=== PATIENT | male | born 1985 | race Caucasian/White ===

== ENCOUNTER 2020-06-14 08:20 | Outpatient (REF) | payer OTHER, SELFPAY ==
[2020-06-14 08:42] LABS: COVID-19 Test Negative (Negative)
== END 2020-06-14 08:21 | disposition home or self-care (01) ==
LOC: HO.LAB 08:20
PROVIDERS: Visit Provider Internal Medicine
DX: Z20.822 Contact with and (suspected) exposure to COVID-19 (principal)
CPT/HCPCS: 36415; 87635; C9803

== ENCOUNTER 2020-06-21 15:00 | Outpatient (REF) | payer OTHER, SELFPAY | END 2020-06-21 15:01 | disposition home or self-care (01) | LOC: HO.LAB 15:00 | PROVIDERS: Visit Provider Internal Medicine | DX: Z20.822 Contact with and (suspected) exposure to COVID-19 (principal) | CPT/HCPCS: C9803; U0003; U0005 ==

== ENCOUNTER 2020-07-02 09:41 | Outpatient (REF) | payer OTHER, SELFPAY ==
[2020-07-02 10:00] LABS: COVID-19 Test Negative (Negative)
== END 2020-07-02 09:42 | disposition home or self-care (01) ==
LOC: HO.LAB 09:41
PROVIDERS: Visit Provider Internal Medicine
DX: Z20.822 Contact with and (suspected) exposure to COVID-19 (principal)
CPT/HCPCS: 36415; 87635; C9803

== ENCOUNTER 2020-10-01 10:43 | Outpatient (REF) | payer OTHER, SELFPAY ==
[2020-10-01 11:41] LABS: MANUAL DIFF FLAG NO
[2020-10-01 11:51] LABS: Basophils Percent Auto 0.3 % (0-2); Eosinophils Absolute Auto 0.3 X10*3/uL (0.0-0.4); Eosinophils Percent Auto 4.3 % (0-4); Hematocrit 42.5 % (42-52); Hemoglobin 13.8 g/dl (14.0-18.0); Imm Gran Abs Auto 0.03 X10*3/uL (0.00-0.03); Imm Gran Pct Auto 0.4 % (0.0-0.4); Lymphocytes Absolute Auto 2.1 X10*3/uL (1.2-4.9); Lymphocytes Percent Auto 29.6 % (20-40); Mean Corpuscular HGB Conc 32.5 g/dl (31.0-36.0); Mean Corpuscular Hemoglobin 27.5 pg (27.0-33.0); Mean Corpuscular Volume 84.7 fL (80-98); Mean Platelet Volume 8.8 fL (9.4-12.4); Monocytes Absolute Auto 0.6 X10*3/uL (0.1-1.2); Monocytes Percent Auto 7.8 % (2-11); Neutrophils Absolute Auto 4.1 X10*3/uL (2.0-8.3); Neutrophils Percent Auto 57.6 % (45-73); Platelet Count 225 X10*3/uL (160-400); Red Blood Count 5.02 X10*6/uL (4.60-5.80); Red Cell Distribution Width 14.2 % (11.0-16.0); White Blood Count 7.1 X10*3/uL (4.8-10.8)
[2020-10-01 12:20] LABS: Amylase 39 U/L (28-100); Anion Gap 11 (12-20); Blood Urea Nitrogen 14 mg/dL (9-16); Calcium 9.2 mg/dL (8.4-10.2); Carbon Dioxide 30 mmol/L (22-29); Chloride 105 mmol/L (96-108); Estimated Glomerular Filt Rate > 60; Glucose Random 104 mg/dL (60-115); Lipase 17 U/L (8-78); Potassium 4.3 mmol/L (3.3-5.1); Sodium 142 mmol/L (135-145)
[2020-10-01 12:40] LABS: Vitamin D 25-OH Total 19.2 ng/mL (>30)
[2020-10-01 13:16] LABS: Vitamin B12 511 pg/mL (200-900)
[2020-10-01 14:58] LABS: Leukocytes Stool Qualitative NEGATIVE (NEGATIVE)
== END 2020-10-01 10:44 | disposition home or self-care (01) ==
LOC: HO.LAB 10:43
PROVIDERS: PCP Internal Medicine; Visit Provider Internal Medicine
DX: K90.9 Intestinal malabsorption, unspecified (principal); R19.7 Diarrhea, unspecified; E53.8 Deficiency of other specified B group vitamins; E55.9 Vitamin D deficiency, unspecified; Z98.84 Bariatric surgery status
CPT/HCPCS: 36415; 80048; 82150; 82306; 82607; 82705; 82746; 83690; 85025; 87045; 87046; 89055

== ENCOUNTER 2021-01-03 13:31 | Outpatient (REF) | payer OTHER, SELFPAY ==
[2021-01-03 17:04] LABS: Influenza A PCR NEGATIVE (Negative); Influenza B PCR NEGATIVE (Negative); Resp Syncy Virus RNA Qual PCR NEGATIVE (Negative); SARS COV2 PCR INHOUSE NEGATIVE (Negative)
== END 2021-01-03 13:32 | disposition home or self-care (01) ==
LOC: HO.LAB 13:31
PROVIDERS: Visit Provider Internal Medicine
DX: Z20.822 Contact with and (suspected) exposure to COVID-19 (principal); R43.9 Unspecified disturbances of smell and taste
CPT/HCPCS: 0241U; 36415

== ENCOUNTER 2021-02-25 08:22 | Outpatient (REF) | payer OTHER, SELFPAY ==
[2021-02-25 08:55] LABS: COVID-19 Test Negative (Negative)
== END 2021-02-25 08:23 | disposition home or self-care (01) ==
LOC: HO.LAB 08:22
PROVIDERS: PCP Internal Medicine; Visit Provider Internal Medicine
DX: Z20.822 Contact with and (suspected) exposure to COVID-19 (principal)
CPT/HCPCS: 36415; 87635; C9803

== ENCOUNTER 2021-03-25 09:46 | Outpatient (REF) | payer OTHER, SELFPAY ==
[2021-03-25 10:38] LABS: Binax Internal Control QC Valid; Binax Now Covid-19 Ag Negative (Negative)
== END 2021-03-25 09:47 | disposition home or self-care (01) ==
LOC: HO.LAB 09:46
PROVIDERS: Visit Provider Internal Medicine
DX: Z20.822 Contact with and (suspected) exposure to COVID-19 (principal)
CPT/HCPCS: C9803

== ENCOUNTER 2021-03-31 09:56 | Outpatient (REF) | payer OTHER, SELFPAY ==
[2021-03-31 10:34] LABS: Binax Internal Control QC Valid; Binax Now Covid-19 Ag Positive (Negative)
== END 2021-03-31 09:57 | disposition home or self-care (01) ==
LOC: HO.LAB 09:56
PROVIDERS: Visit Provider Internal Medicine
DX: Z20.822 Contact with and (suspected) exposure to COVID-19 (principal)
CPT/HCPCS: C9803

== ENCOUNTER 2022-03-18 13:25 | Inpatient (IN) | payer OTHER, SELFPAY ==
[2022-03-18] VITALS (7 sets, daily range): BP systolic 105–149; BP diastolic 54–81; PULSE 54–66; RESP 16–18; TEMP 35.6–36.8; O2SAT 95–100; BMI 40.6
--- NOTE | ~2022-03-18 | CT_ITS ---
EXAMINATION: CT ABDOMEN AND PELVIS WITH CONTRAST CLINICAL INFORMATION: Right upper quadrant pain COMPARISON: CT abdomen and pelvis 08/25/2018 TECHNIQUE: Multidetector volumetric images were obtained from the superior aspect of the liver through the pubic symphysis following administration 85 mL of Omnipaque 350 intravenous contrast. Sagittal and coronal reformatted images were obtained on the technologist's workstation. Oral contrast: No This CT examination was performed using dose optimization techniques as appropriate, variously including the following: *Automated exposure control *Adjustment of mA and/or kV according to patient size (this includes techniques or standardized protocols for targeted exams where dose is matched to indication/reason for exam; i.e. extremities or head) *Use of iterative reconstruction technique DLP: 1019 mGy-cm FINDINGS: LUNG BASES: Minimal dependent basilar and lingular segmental atelectasis. LIVER, GALLBLADDER, AND BILIARY TREE: The liver is normal in size, shape, and attenuation. No focal hepatic lesion or biliary ductal dilatation is present. Gallbladder is markedly dilated/hydropic. There appears to be small amount of layering sludge in the gallbladder. No calcified gallstones. Trace pericholecystic fluid versus submucosal gallbladder wall edema. Minimal pericholecystic hazy fat stranding extending into the samantha hepatus. Constellation of findings is highly concerning for acute cholecystitis. PANCREAS: Unremarkable. SPLEEN: Unremarkable. ADRENAL GLANDS: Unremarkable. KIDNEYS AND URETERS: Nephrograms are symmetric. There is no hydronephrosis. There is a small 3 mm nonobstructing left lower pole renal calculus. No renal lesions. No perinephric fluid collections. BLADDER: Unremarkable. GASTROINTESTINAL TRACT: Status post partial gastrectomy with gastrojejunostomy. No dilated bowel loops. No bowel wall thickening. Normal appendix. No free air or ascites. ABDOMINAL WALL: No significant hernia is appreciated. LYMPH NODES: No lymphadenopathy. VASCULAR: Unremarkable. PELVIC VISCERA: Unremarkable. OSSEOUS STRUCTURES: No acute fracture or suspicious osseous lesion. Mild multilevel degenerative disc disease in the thoracic spine. CT/CT abdomen pelvis w IV con IMPRESSION: 1. Markedly dilated/hydropic gallbladder with small amount of layering sludge. Minimal pericholecystic fluid versus submucosal gallbladder wall edema. Constellation of findings is highly concerning for acute cholecystitis. 2. No biliary ductal dilatation. 3. Status post partial gastrectomy with gastrojejunostomy. No evidence of bowel obstruction. 4. 3 mm nonobstructing left lower pole renal calculus.
--- NOTE | ~2022-03-18 | US_ITS ---
EXAMINATION: US ABDOMEN LIMITED CLINICAL INFORMATION: Right upper quadrant pain. COMPARISON: CT abdomen and pelvis 08/25/2018, abdominal ultrasound 04/01/2015 TECHNIQUE: Targeted scanning of the gallbladder and common bile duct was performed. FINDINGS: PANCREAS: Not imaged. LIVER: Not fully imaged. GALLBLADDER: Gallbladder is significantly enlarged/dilated measuring approximately 15 cm in length and contains numerous echogenic shadowing layering gallstones. Gallbladder wall is borderline thickened measuring 0.3 cm. The patient was tender while scanning over the gallbladder per technologist report. No pericholecystic fluid. COMMON BILE DUCT: Minimally dilated measuring 0.6 cm in diameter. RIGHT KIDNEY: Not imaged FREE FLUID: None. US/US abdomen limited IMPRESSION: 1. Distended/hydropic gallbladder containing numerous gallstones. Borderline gallbladder wall thickening and pain while scanning over the gallbladder. Findings are suspicious for acute cholecystitis. 2. Minimally dilated common bile duct measuring 0.6 cm in diameter.
--- NOTE | 2022-03-18 13:34 | ED.ABDPAIN ---
HPI - Abdominal Pain General Chief Complaint: General Medical <STAS Chavarria - Last Filed: 03/18/22 13:56> Stated Complaint: ABDOMINAL PAIN <STAS Chavarria - Last Filed: 03/18/22 13:56> Time Seen by Provider: 03/18/22 15:54 <STAS Chavarria - Last Filed: 03/18/22 13:56> Source: patient <STAS Berger - Last Filed: 03/18/22 17:56> Mode of arrival: ambulatory <STAS Berger - Last Filed: 03/18/22 17:56> Limitations: no limitations <STAS Berger - Last Filed: 03/18/22 17:56> Related Data Home Medications: Home Medications Medication Instructions Recorded Confirmed blood sugar diagnostic #10 ea 05/03/20 03/13/22 multivitamin 1 tab PO DAILY 10/01/20 03/18/22 Previous Rx's Medication Instructions Recorded cholecalciferol (vitamin D3) 50 50 mcg PO DAILY 90 days #90 caps 11/11/21 mcg (2,000 unit) capsule ibuprofen 800 mg tablet 800 mg PO Q8H PRN pain 30 days #90 02/17/22 tabs <STAS Chavarria - Last Filed: 03/18/22 13:56> Allergies/Adverse Reactions: Allergies Allergy/AdvReac Type Severity Reaction Status Date / Time No Known Allergies Allergy Verified 03/13/22 10:52 <STAS Chavarria - Last Filed: 03/18/22 13:56> [facility] Past Medical History Medical History: Medical History Diarrhea due to malabsorption Frequent loose stools Obesity (BMI 30-39.9) Vitamin D deficiency <STAS Chavarria - Last Filed: 03/18/22 13:56> Surgical History: Surgical History History of gastric bypass (~04/05/20) Status post laparoscopic sleeve gastrectomy <STAS Chavarria - Last Filed: 03/18/22 13:56> Family History Family History: Family History Mother Arthritis Father Parkinsons <STAS Chavarria - Last Filed: 03/18/22 13:56> Social History Social History: Social History Housing: Apartment Alcohol intake: unknown Patient Tobacco Use Status: Never used Tobacco e-Cigarette/Vaping Use: Never Used Second Hand Smoke Exposure: Yes Advance Directives: No Advance Directives Information Provided: No service: No Current occupational status: unemployed Cognitive needs: No Hearing needs: No Vision needs: Yes <STAS Chavarria - Last Filed: 03/18/22 13:56> Physical Exam ED Vital Signs: Vital Signs - 24 hr 03/18/22 13:54 03/18/22 16:00 03/18/22 17:49 Temperature 96.0 F L 97.9 F Pulse Rate 54 61 64 Respiratory Rate 18 16 18 Blood Pressure 142/81 H 130/65 143/74 H Pulse Oximetry 100 96 98 Oxygen Delivery Method Room Air Room Air BMI result Body Mass Index 40.6 <STAS Chavarria - Last Filed: 03/18/22 13:56> Vital Signs - 24 hr 03/18/22 13:54 03/18/22 16:00 03/18/22 17:49 Temperature 96.0 F L 97.9 F Pulse Rate 54 61 64 Respiratory Rate 18 16 18 Blood Pressure 142/81 H 130/65 143/74 H Pulse Oximetry 100 96 98 Oxygen Delivery Method Room Air Room Air BMI result Body Mass Index 40.6 <STAS Berger - Last Filed: 03/18/22 17:56> Course Course Course Narrative: RME - 36 yo male presents to the via EMS for evaluation of upper abdominal pain that radiates to the right and to his back that started at 2am. + nausea and diarrhea but no vomiting. Very tender RUQ on exam. Labs and U/S ordered. <STAS Chavarria - Last Filed: 03/18/22 13:56> Reevaluation(s) Reevaluation #1: CBC with slight leukocytosis. <STAS Berger - Last Filed: 03/18/22 17:56> Medical Decision Making Lab Data Result Diagrams: 03/18/22 15:01 03/18/22 15:01 <STAS Chavarria - Last Filed: 03/18/22 13:56> Labs: Lab Results 03/18/22 03/18/22 03/18/22 Range/Units 15:01 15:01 15:07 WBC 12.8 H (4.8-10.8) X10*3/uL RBC 5.24 (4.60-5.80) X10*6/uL Hgb 14.5 (14.0-18.0) g/dl Hct 43.7 (42.0-52.0) % MCV 83.4 (80.0-98.0) fL MCH 27.7 (27.0-33.0) pg MCHC 33.2 (31.0-36.0) g/dl RDW 13.3 (11.0-16.0) % Plt Count 240 (160-400) X10*3/uL MPV 8.9 L (9.4-12.4) fL Immature Gran % (Auto) 0.5 H (0.0-0.4) % Neut % (Auto) 85.3 H (45-73) % Lymph % (Auto) 9.4 L (20-40) % [place] % (Auto) 3.9 (2-11) % Eos % (Auto) 0.5 (0-4) % Baso % (Auto) 0.4 (0-2) % Lymph # (Auto) 1.2 (1.2-4.9) X10*3/uL [place] # (Auto) 0.5 (0.1-1.2) X10*3/uL Eos # (Auto) 0.1 (0.0-0.4) X10*3/uL Baso # (Auto) 0.1 (0.0-0.2) X10*3/uL Abs Immat Gran (auto) 0.06 H (0.00-0.03) X10*3/uL Absolute Neuts (auto) 10.9 H (2.0-8.3) x10*3/uL Absolute Nucleated RBC 0.000 (0.0-0.012) X10*3/uL Nucleated RBC % (auto) 0.0 (0.0-0.2) /100WBC Sodium 141 (135-145) mmol/L Potassium 4.0 (3.3-5.1) mmol/L Chloride 106 (96-108) mmol/L Carbon Dioxide 28 (22-29) mmol/L Anion Gap 11 L (12-20) BUN 14 (9-16) mg/dL Creatinine 0.70 (0.5-1.4) mg/dL Estim Creat Clear Calc 181.0 Estimated GFR > 60 Random Glucose 181 H (60-115) mg/dL Lactic Acid (0.5-2.0) mmol/L Calcium 9.1 (8.4-10.2) mg/dL Magnesium 2.3 (1.6-2.6) mg/dL Total Bilirubin 0.4 (0.0-1.0) mg/dL Direct Bilirubin < 0.2 (0.0-0.5) mg/dL AST 16 (5-37) U/L ALT 24 (0-40) U/L Alkaline Phosphatase 89 (39-117) U/L Total Protein 7.2 (6.5-8.0) g/dL Albumin 4.5 (3.5-5.0) g/dL Lipase 27 (8-78) U/L Urine Color Yellow Urine Appearance Clear Urine pH 6.0 (5.0-9.0) Ur Specific [place] >= 1.030 H (1.005-1.025) Urine Protein Negative (Neg-Trace) mg/dL Urine Glucose (UA) Negative (Negative) mg/dL Urine Ketones Negative (Negative) mg/dL Urine Blood Negative (Negative) Urine Nitrite Negative (Negative) Ur Leukocyte Esterase Negative (Negative) COVID-19 (REMY) (Negative) COVID-19 Clin Com 03/18/22 03/18/22 Range/Units 16:14 16:14 WBC (4.8-10.8) X10*3/uL RBC (4.60-5.80) X10*6/uL Hgb (14.0-18.0) g/dl Hct (42.0-52.0) % MCV (80.0-98.0) fL MCH (27.0-33.0) pg MCHC (31.0-36.0) g/dl RDW (11.0-16.0) % Plt Count (160-400) X10*3/uL MPV (9.4-12.4) fL Immature Gran % (Auto) (0.0-0.4) % Neut % (Auto) (45-73) % Lymph % (Auto) (20-40) % [place] % (Auto) (2-11) % Eos % (Auto) (0-4) % Baso % (Auto) (0-2) % Lymph # (Auto) (1.2-4.9) X10*3/uL [place] # (Auto) (0.1-1.2) X10*3/uL Eos # (Auto) (0.0-0.4) X10*3/uL Baso # (Auto) (0.0-0.2) X10*3/uL Abs Immat Gran (auto) (0.00-0.03) X10*3/uL Absolute Neuts (auto) (2.0-8.3) x10*3/uL Absolute Nucleated RBC (0.0-0.012) X10*3/uL Nucleated RBC % (auto) (0.0-0.2) /100WBC Sodium (135-145) mmol/L Potassium (3.3-5.1) mmol/L Chloride (96-108) mmol/L Carbon Dioxide (22-29) mmol/L Anion Gap (12-20) BUN (9-16) mg/dL Creatinine (0.5-1.4) mg/dL Estim Creat Clear Calc Estimated GFR Random Glucose (60-115) mg/dL Lactic Acid 1.2 (0.5-2.0) mmol/L Calcium (8.4-10.2) mg/dL Magnesium (1.6-2.6) mg/dL Total Bilirubin (0.0-1.0) mg/dL Direct Bilirubin (0.0-0.5) mg/dL AST (5-37) U/L ALT (0-40) U/L Alkaline Phosphatase (39-117) U/L Total Protein (6.5-8.0) g/dL Albumin (3.5-5.0) g/dL Lipase (8-78) U/L Urine Color Urine Appearance Urine pH (5.0-9.0) Ur Specific [place] (1.005-1.025) Urine Protein (Neg-Trace) mg/dL Urine Glucose (UA) (Negative) mg/dL Urine Ketones (Negative) mg/dL Urine Blood (Negative) Urine Nitrite (Negative) Ur Leukocyte Esterase (Negative) COVID-19 (REMY) Negative (Negative) COVID-19 Clin Com See Note <STAS Chavarria - Last Filed: 03/18/22 13:56> Lab Results 03/18/22 03/18/22 03/18/22 Range/Units 15:01 15:01 15:07 WBC 12.8 H (4.8-10.8) X10*3/uL RBC 5.24 (4.60-5.80) X10*6/uL Hgb 14.5 (14.0-18.0) g/dl Hct 43.7 (42.0-52.0) % MCV 83.4 (80.0-98.0) fL MCH 27.7 (27.0-33.0) pg MCHC 33.2 (31.0-36.0) g/dl RDW 13.3 (11.0-16.0) % Plt Count 240 (160-400) X10*3/uL MPV 8.9 L (9.4-12.4) fL Immature Gran % (Auto) 0.5 H (0.0-0.4) % Neut % (Auto) 85.3 H (45-73) % Lymph % (Auto) 9.4 L (20-40) % [place] % (Auto) 3.9 (2-11) % Eos % (Auto) 0.5 (0-4) % Baso % (Auto) 0.4 (0-2) % Lymph # (Auto) 1.2 (1.2-4.9) X10*3/uL [place] # (Auto) 0.5 (0.1-1.2) X10*3/uL Eos # (Auto) 0.1 (0.0-0.4) X10*3/uL Baso # (Auto) 0.1 (0.0-0.2) X10*3/uL Abs Immat Gran (auto) 0.06 H (0.00-0.03) X10*3/uL Absolute Neuts (auto) 10.9 H (2.0-8.3) x10*3/uL Absolute Nucleated RBC 0.000 (0.0-0.012) X10*3/uL Nucleated RBC % (auto) 0.0 (0.0-0.2) /100WBC Sodium 141 (135-145) mmol/L Potassium 4.0 (3.3-5.1) mmol/L Chloride 106 (96-108) mmol/L Carbon Dioxide 28 (22-29) mmol/L Anion Gap 11 L (12-20) BUN 14 (9-16) mg/dL Creatinine 0.70 (0.5-1.4) mg/dL Estim Creat Clear Calc 181.0 Estimated GFR > 60 Random Glucose 181 H (60-115) mg/dL Lactic Acid (0.5-2.0) mmol/L Calcium 9.1 (8.4-10.2) mg/dL Magnesium 2.3 (1.6-2.6) mg/dL Total Bilirubin 0.4 (0.0-1.0) mg/dL Direct Bilirubin < 0.2 (0.0-0.5) mg/dL AST 16 (5-37) U/L ALT 24 (0-40) U/L Alkaline Phosphatase 89 (39-117) U/L Total Protein 7.2 (6.5-8.0) g/dL Albumin 4.5 (3.5-5.0) g/dL Lipase 27 (8-78) U/L Urine Color Yellow Urine Appearance Clear Urine pH 6.0 (5.0-9.0) Ur Specific [place] >= 1.030 H (1.005-1.025) Urine Protein Negative (Neg-Trace) mg/dL Urine Glucose (UA) Negative (Negative) mg/dL Urine Ketones Negative (Negative) mg/dL Urine Blood Negative (Negative) Urine Nitrite Negative (Negative) Ur Leukocyte Esterase Negative (Negative) COVID-19 (REMY) (Negative) COVID-19 Clin Com 03/18/22 03/18/22 Range/Units 16:14 16:14 WBC (4.8-10.8) X10*3/uL RBC (4.60-5.80) X10*6/uL Hgb (14.0-18.0) g/dl Hct (42.0-52.0) % MCV (80.0-98.0) fL MCH (27.0-33.0) pg MCHC (31.0-36.0) g/dl RDW (11.0-16.0) % Plt Count (160-400) X10*3/uL MPV (9.4-12.4) fL Immature Gran % (Auto) (0.0-0.4) % Neut % (Auto) (45-73) % Lymph % (Auto) (20-40) % [place] % (Auto) (2-11) % Eos % (Auto) (0-4) % Baso % (Auto) (0-2) % Lymph # (Auto) (1.2-4.9) X10*3/uL [place] # (Auto) (0.1-1.2) X10*3/uL Eos # (Auto) (0.0-0.4) X10*3/uL Baso # (Auto) (0.0-0.2) X10*3/uL Abs Immat Gran (auto) (0.00-0.03) X10*3/uL Absolute Neuts (auto) (2.0-8.3) x10*3/uL Absolute Nucleated RBC (0.0-0.012) X10*3/uL Nucleated RBC % (auto) (0.0-0.2) /100WBC Sodium (135-145) mmol/L Potassium (3.3-5.1) mmol/L Chloride (96-108) mmol/L Carbon Dioxide (22-29) mmol/L Anion Gap (12-20) BUN (9-16) mg/dL Creatinine (0.5-1.4) mg/dL Estim Creat Clear Calc Estimated GFR Random Glucose (60-115) mg/dL Lactic Acid 1.2 (0.5-2.0) mmol/L Calcium (8.4-10.2) mg/dL Magnesium (1.6-2.6) mg/dL Total Bilirubin (0.0-1.0) mg/dL Direct Bilirubin (0.0-0.5) mg/dL AST (5-37) U/L ALT (0-40) U/L Alkaline Phosphatase (39-117) U/L Total Protein (6.5-8.0) g/dL Albumin (3.5-5.0) g/dL Lipase (8-78) U/L Urine Color Urine Appearance Urine pH (5.0-9.0) Ur Specific [place] (1.005-1.025) Urine Protein (Neg-Trace) mg/dL Urine Glucose (UA) (Negative) mg/dL Urine Ketones (Negative) mg/dL Urine Blood (Negative) Urine Nitrite (Negative) Ur Leukocyte Esterase (Negative) COVID-19 (REMY) Negative (Negative) COVID-19 Clin Com See Note <STAS Berger - Last Filed: 03/18/22 17:56> Medications Administered Generic Name Dose Route Start Last Admin Trade Name Freq PRN Reason Stop Dose Admin Hydromorphone HCl 1.5 mg 03/18/22 18:27 03/18/22 23:43 Hydromorphone Hcl 2 Mg/Ml Vial IVPUSH 1.5 mg RQ4H PRN Administration Pain, Severe (Pain Scale 7-10) Protocol Piperacillin Sod/Tazobactam 50 mls @ 100 mls/hr 03/18/22 23:00 03/19/22 00:15 Sod 3.375 gm/ Sodium Chloride IV Infused Q6H MCKENZIE Infusion Ondansetron HCl 4 mg 03/18/22 18:27 03/18/22 19:26 Ondansetron Hcl 4 Mg/2 Ml Vial IVPUSH 4 mg RQ6H PRN Administration Nausea Sodium Chloride 3 ml 03/19/22 00:00 03/18/22 23:47 0.9 % Sodium Chloride Flush 3 Ml Syringe IVFLUSH 3 ml QSHIFT MCKENZIE Administration Discontinued Medications Generic Name Dose Route Start Last Admin Trade Name Freq PRN Reason Stop Dose Admin Hydromorphone HCl 1 mg 03/18/22 17:39 03/18/22 17:46 Hydromorphone Hcl 1 Mg/Ml Syringe IVPUSH 03/18/22 17:40 1 mg ONCE ONE Administration Protocol Piperacillin Sod/Tazobactam 50 mls @ 100 mls/hr 03/18/22 15:59 03/18/22 17:04 Sod 3.375 gm/ Sodium Chloride IV 03/18/22 16:28 Infused ONCE ONE Infusion Sodium Chloride 1,000 mls @ 999 mls/hr 03/18/22 16:00 03/18/22 17:39 Ns IV 03/18/22 17:00 Infused .Q1H1M MCKENZIE Infusion Morphine Sulfate 4 mg 03/18/22 16:00 03/18/22 16:29 Morphine Sulfate 4 Mg/Ml Cartridge IVPUSH 03/18/22 16:01 4 mg ONCE ONE Administration Protocol <STAS Chavarria - Last Filed: 03/18/22 13:56> Medications Administered Generic Name Dose Route Start Last Admin Trade Name Frebrianne PRN Reason Stop Dose Admin Hydromorphone HCl 1.5 mg 03/18/22 18:27 03/18/22 23:43 Hydromorphone Hcl 2 Mg/Ml Vial IVPUSH 1.5 mg RQ4H PRN Administration Pain, Severe (Pain Scale 7-10) Protocol Piperacillin Sod/Tazobactam 50 mls @ 100 mls/hr 03/18/22 23:00 03/19/22 00:15 Sod 3.375 gm/ Sodium Chloride IV Infused Q6H MCKENZIE Infusion Ondansetron HCl 4 mg 03/18/22 18:27 03/18/22 19:26 Ondansetron Hcl 4 Mg/2 Ml Vial IVPUSH 4 mg RQ6H PRN Administration Nausea Sodium Chloride 3 ml 03/19/22 00:00 03/18/22 23:47 0.9 % Sodium Chloride Flush 3 Ml Syringe IVFLUSH 3 ml QSHIFT MCKENZIE Administration Discontinued Medications Generic Name Dose Route Start Last Admin Trade Name Chance PRN Reason Stop Dose Admin Hydromorphone HCl 1 mg 03/18/22 17:39 03/18/22 17:46 Hydromorphone Hcl 1 Mg/Ml Syringe IVPUSH 03/18/22 17:40 1 mg ONCE ONE Administration Protocol Piperacillin Sod/Tazobactam 50 mls @ 100 mls/hr 03/18/22 15:59 03/18/22 17:04 Sod 3.375 gm/ Sodium Chloride IV 03/18/22 16:28 Infused ONCE ONE Infusion Sodium Chloride 1,000 mls @ 999 mls/hr 03/18/22 16:00 03/18/22 17:39 Ns IV 03/18/22 17:00 Infused .Q1H1M MCKENZIE Infusion Morphine Sulfate 4 mg 03/18/22 16:00 03/18/22 16:29 Morphine Sulfate 4 Mg/Ml Cartridge IVPUSH 03/18/22 16:01 4 mg ONCE ONE Administration Protocol <STAS Berger - Last Filed: 03/18/22 17:56> Discharge Plan Discharge Clinical Impression: Cholecystitis <STAS Chavarria - Last Filed: 03/18/22 13:56> Patient Disposition: Admitted As Inpatient <STAS Chavarria - Last Filed: 03/18/22 13:56> Interventions: Admission Worksheet (ED) Last Done: 03/18/22 23:10 <STAS Chavarria - Last Filed: 03/18/22 13:56> Discharge Date/Time: 03/18/22 23:15 <STAS Chavarria - Last Filed: 03/18/22 13:56>
[2022-03-18 15:07] LABS: MANUAL DIFF FLAG NO
[2022-03-18 15:09] LABS: Basophils Absolute Auto 0.1 X10*3/uL (0.0-0.2); Basophils Percent Auto 0.4 % (0-2); Eosinophils Absolute Auto 0.1 X10*3/uL (0.0-0.4); Eosinophils Percent Auto 0.5 % (0-4); Hematocrit 43.7 % (42.0-52.0); Hemoglobin 14.5 g/dl (14.0-18.0); Imm Gran Abs Auto 0.06 X10*3/uL (0.00-0.03); Imm Gran Pct Auto 0.5 % (0.0-0.4); Lymphocytes Absolute Auto 1.2 X10*3/uL (1.2-4.9); Lymphocytes Percent Auto 9.4 % (20-40); Mean Corpuscular HGB Conc 33.2 g/dl (31.0-36.0); Mean Corpuscular Hemoglobin 27.7 pg (27.0-33.0); Mean Corpuscular Volume 83.4 fL (80.0-98.0); Mean Platelet Volume 8.9 fL (9.4-12.4); Monocytes Absolute Auto 0.5 X10*3/uL (0.1-1.2); Monocytes Percent Auto 3.9 % (2-11); Neutrophils Absolute Auto 10.9 x10*3/uL (2.0-8.3); Neutrophils Percent Auto 85.3 % (45-73); Platelet Count 240 X10*3/uL (160-400); Red Blood Count 5.24 X10*6/uL (4.60-5.80); Red Cell Distribution Width 13.3 % (11.0-16.0); White Blood Count 12.8 X10*3/uL (4.8-10.8)
[2022-03-18 15:14] LABS: Appearance Urine Clear; Color Urine Yellow; Glucose Urine UA Negative (Negative); Leukocyte Esterase Urine Negative (Negative); Nitrite Urine Negative (Negative); Specific Gravity - Urine >= 1.030 (1.005-1.025); Urine Blood Negative (Negative); Urine Ketones Negative (Negative); Urine Protein Negative (Neg-Trace)
[2022-03-18 15:31] LABS: Alanine Aminotransferase 24 U/L (0-40); Albumin Level 4.5 g/dL (3.5-5.0); Alkaline Phosphatase 89 U/L (39-117); Anion Gap 11 (12-20); Aspartate Amino Transferase 16 U/L (5-37); Bilirubin Direct < 0.2 mg/dL (0.0-0.5); Bilirubin Total 0.4 mg/dL (0.0-1.0); Blood Urea Nitrogen 14 mg/dL (9-16); Calcium 9.1 mg/dL (8.4-10.2); Carbon Dioxide 28 mmol/L (22-29); Chloride 106 mmol/L (96-108); Estimated Glomerular Filt Rate > 60; Glucose Random 181 mg/dL (60-115); Lipase 27 U/L (8-78); Magnesium 2.3 mg/dL (1.6-2.6); Sodium 141 mmol/L (135-145); Total Protein 7.2 g/dL (6.5-8.0)
--- NOTE | 2022-03-18 16:05 | ED_ITS ---
HPI - General Adult General Chief complaint: General Medical Stated complaint: ABDOMINAL PAIN Time Seen by Provider: 03/18/22 15:54 Source: patient Mode of arrival: ambulatory Limitations: no limitations History of Present Illness HPI narrative: This is a 36-year-old male history of diabetes, obesity presenting to the emergency department with abdominal pain since yesterday. Patient tells me the pain started in his right flank and radiated forward to his right upper quadrant. He tells me he has not had an appetite since yesterday and he reports he is having severe intermittent sharp pain to his right upper quadrant. Unable to tell me what makes it better worse. Patient appears evidently uncomfortable upon history taking. Also reporting associated nausea. He denies fevers, chills, chest pain, shortness of breath, vomiting, changes in urination or bowel habits, headache, vision changes, dizziness and weakness. Patient still has his appendix and gallbladder Related Data Home Medications Medication Instructions Recorded Confirmed blood sugar diagnostic #10 ea 05/03/20 03/13/22 multivitamin 1 tab PO DAILY 10/01/20 03/13/22 pantoprazole 40 mg tablet,delayed 40 mg PO DAILY 10/01/20 03/13/22 release Previous Rx's Medication Instructions Recorded albuterol sulfate 90 mcg/actuation 1 inh inhalation QID PRN shortness 01/03/21 aerosol inhaler of breath or wheezing #6.7 grams cholecalciferol (vitamin D3) 50 50 mcg PO DAILY 90 days #90 caps 11/11/21 mcg (2,000 unit) capsule ibuprofen 800 mg tablet 800 mg PO Q8H PRN pain 30 days #90 02/17/22 tabs Allergies Allergy/AdvReac Type Severity Reaction Status Date / Time No Known Allergies Allergy Verified 03/13/22 10:52 Review of Systems Review of Systems: Constitutional : No Weight loss, No Fever, No Chills, No Fatigue, No Malaise ENT/Mouth : No sore throat, No Rhinorrhea Eyes: No Eye Pain, No Swelling, No Redness Cardiovascular : No Chest Pain, No SOB, No Dyspnea on Exertion, No Orthopnea, No Edema, No Palpitations Respiratory : No Cough, No Sputum, No Wheezing Gastrointestinal : + Nausea, No Vomiting, No Diarrhea, No Constipation, + abdominal Pain, No Hematochezia, No Melena Genitourinary : No Dysuria, No Urinary Frequency, No Hematuria, Musculoskeletal : No joint pain, No Myalgias, No Joint Swelling Skin : No Skin Lesions, No rash Neuro : No Weakness, No Numbness, No Dizziness, No Headache Psych : No Anxiety/Panic, No Depression All other systems reviewed and are negative Yes all other systems are reviewed and are negative [facility] Past Medical History Attestation statement: The following information was validated with the patient. Source: old records reviewed and nursing notes reviewed Medical History Diarrhea due to malabsorption Frequent loose stools Obesity (BMI 30-39.9) Vitamin D deficiency Surgical History History of gastric bypass (~04/05/20) Status post laparoscopic sleeve gastrectomy Family History Family History Mother Arthritis Father Parkinsons Social History Social History Housing: Apartment Alcohol intake: current Alcohol intake frequency: holidays/special occasions only Patient Tobacco Use Status: Never used Tobacco e-Cigarette/Vaping Use: Never Used Second Hand Smoke Exposure: Yes Advance Directives: No Advance Directives Information Provided: No service: No Current occupational status: unemployed Cognitive needs: No Hearing needs: No Vision needs: Yes Physical Exam ED Vital Signs: Vital Signs - 24 hr 03/18/22 13:54 03/18/22 16:00 Temperature 96.0 F L 97.9 F Pulse Rate 54 61 Respiratory Rate 18 16 Blood Pressure 142/81 H 130/65 Pulse Oximetry 100 96 Oxygen Delivery Method Room Air BMI result Body Mass Index 40.6 Vital signs stable Appearance: Alert.? Oriented X3.? No acute distress.?Patient uncomfortable appearing Head: Normocephalic, atraumatic, no step-offs or deformities Eyes: Pupils equal, round and reactive to light.? ENT: Pharynx normal.? Neck: Normal inspection.? Neck supple.? CVS: Normal heart rate and rhythm.? Pulses normal.? Respiratory: No respiratory distress.? Breath sounds normal.? Abdomen: Soft and significant tenderness to right upper quadrant with positive Giles sign normoactive bowel sounds throughout.? Skin: Skin warm and dry.? Normal skin color.? Normal skin turgor.? Extremities: No lower extremity edema.? No calf ttp. 5/5 strength to bilateral upper and lower extremities Back: No midline tenderness, no C-spine tenderness, full range of motion, no CVA tenderness bilaterally Neuro: Oriented X 3.? No motor deficit.? No sensory deficit. CN 2-12 intact Course Reevaluation(s) Reevaluation #1: Labs ordered from triage, patient is noted to have slight leukocytosis, no acute electrolyte abnormalities, concerns for cholecystitis at this time blood cultures, lactic acid ordered. Will order Zosyn for broad coverage. Also obtain CT of the abdomen pelvis to rule out any other intra-abdominal e tiologies. UA was negative for infection. Time: 16:08 Reevaluation #2: Dr. Arrieta will admit patient to surgical service. Aware that CT of the abdomen and pelvis is still pending Time: 16:15 Medical Decision Making Medical Decision Making [facility] Narrative: 1600 28-year-old male presents with significant right upper quadrant pain that started yesterday associated with nausea and anorexia. Still has gallbladder and appendix. Appears uncomfortable. Upon physical exam significant tenderness to right upper quadrant with positive Giles sign. Patient appears uncomfortable. Concerns for possible cholecystitis versus appendicitis. Unlikely small-bowel obstruction, acute abdomen, large bowel obstruction, pancreatitis or diverticulitis. Plan at this time basic labs, urine, blood cultures, lactic acid and antibiotics. Differential Diagnosis Differential Diagnoses: The differential diagnosis associated with the presentation includes Please refer to [facility] Admission/Observation Consideration of admission/observation: Escalation of care including admission/observation considered Patient will likely require admission Consult Healthcare Provider Management of the patient was discussed with: [employer] R[employer] Clerk (Surgery Dr. Arrieta) Lab Data [facility] Lab Attestation statement: I reviewed the patient's lab results. 03/18/22 15:03/18/22 15: Labs: Lab Results 03/18/22 03/18/22 03/18/22 Range/Units 15:01 15: 15:07 WBC 12.8 H (4.8-10.8) X10*3/uL RBC 5.24 (4.60-5.80) X10*6/uL Hgb 14.5 (14.0-18.0) g/dl Hct 43.7 (42.0-52.0) % MCV 83.4 (80.0-98.0) fL MCH 27.7 (27.0-33.0) pg MCHC 33.2 (31.0-36.0) g/dl RDW 13.3 (11.0-16.0) % Plt Count 240 (160-400) X10*3/uL MPV 8.9 L (9.4-12.4) fL Immature Gran % (Auto) 0.5 H (0.0-0.4) % Neut % (Auto) 85.3 H (45-73) % Lymph % (Auto) 9.4 L (20-40) % [place] % (Auto) 3.9 (2-11) % Eos % (Auto) 0.5 (0-4) % Baso % (Auto) 0.4 (0-2) % Lymph # (Auto) 1.2 (1.2-4.9) X10*3/uL [place] # (Auto) 0.5 (0.1-1.2) X10*3/uL Eos # (Auto) 0.1 (0.0-0.4) X10*3/uL Baso # (Auto) 0.1 (0.0-0.2) X10*3/uL Abs Immat Gran (auto) 0.06 H (0.00-0.03) X10*3/uL Absolute Neuts (auto) 10.9 H (2.0-8.3) x10*3/uL Absolute Nucleated RBC 0.000 (0.0-0.012) X10*3/uL Nucleated RBC % (auto) 0.0 (0.0-0.2) /100WBC Sodium 141 (135-145) mmol/L Potassium 4.0 (3.3-5.1) mmol/L Chloride 106 (96-108) mmol/L Carbon Dioxide 28 (22-29) mmol/L Anion Gap 11 L (12-20) BUN 14 (9-16) mg/dL Creatinine 0.70 (0.5-1.4) mg/dL Estim Creat Clear Calc 181.0 Estimated GFR > 60 Random Glucose 181 H (60-115) mg/dL Calcium 9.1 (8.4-10.2) mg/dL Magnesium 2.3 (1.6-2.6) mg/dL Total Bilirubin 0.4 (0.0-1.0) mg/dL Direct Bilirubin < 0.2 (0.0-0.5) mg/dL AST 16 (5-37) U/L ALT 24 (0-40) U/L Alkaline Phosphatase 89 (39-117) U/L Total Protein 7.2 (6.5-8.0) g/dL Albumin 4.5 (3.5-5.0) g/dL Lipase 27 (8-78) U/L Urine Color Yellow Urine Appearance Clear Urine pH 6.0 (5.0-9.0) Ur Specific [place] >= 1.030 H (1.005-1.025) Urine Protein Negative (Neg-Trace) mg/dL Urine Glucose (UA) Negative (Negative) mg/dL Urine Ketones Negative (Negative) mg/dL Urine Blood Negative (Negative) Urine Nitrite Negative (Negative) Ur Leukocyte Esterase Negative (Negative) Independent Interpretation I performed an independent interpretation of an: Ultrasound (Showing concerns for possible cholecystitis) Radiology Impression Discussion of test interpretation with radiology: I have reviewed the rad iologist's reading. External Record Review External record reviewed: Inpatient record, Outpatient record, Primary care record and Outside ED record Core Measures AMI core measures followed: Yes Measure exclusions: not indicated Critical Care Time Critical Care Time Critical Care Time: No Discharge Plan Discharge Clinical Impression: Cholecystitis Patient Disposition: Admitted As Inpatient
--- NOTE | 2022-03-18 16:16 | MHC.EDTECH ---
BLOOD CULTURE AND LACTIC ACID DRAWN AND SEND TO LAB ,VITALS SIGN TAKEN ,PT BROTHER AT BED SIDE ,CALL [facility] WITHIN REACH .
--- NOTE | 2022-03-18 16:18 | PHA.MEDREC ---
Pharmacy Consult ? Medication Reconciliation Pharmacy has completed the medication reconciliation.
[2022-03-18] MEDS: Piperacillin Sodium/Tazobactam 3.375 GM in 0.9 % Sodium Chloride 50 ML IV ×2 (16:29→23:43)
[2022-03-18] MEDS: Morphine Sulfate 4 MG/ML CARTRIDGE IVPUSH (16:29)
[2022-03-18] MEDS: 0.9 % Sodium Chloride 1,000 ML 999 ML IV (16:29)
[2022-03-18 16:38] LABS: Lactic Acid 1.2 mmol/L (0.5-2.0)
[2022-03-18 16:44] LABS: COVID-19 Test Negative (Negative); IDNOW Serial# 16C4AD1C
--- NOTE | 2022-03-18 16:48 | P.CONGS_ITS ---
History of Present Illness Consult details Consult date: 03/18/22 Reason for consult: abdominal pain Narrative: 36-year-old male patient presenting with complaints of abdominal pain. The pain began in the left and right flank and back and in gradually radiated to the epigastrium. The pain began yesterday evening and increased in severity throughout the night making it difficult for him to sleep. The pain is currently in the epigastrium radiating into the back. He reports nausea and vomiting even of liquids. He has been having watery stool for the past day. He reports a prior history of bariatric surgery x2 performed at [facility]. He reports fatty stool following the 2nd procedure. His current stool is looser than normal. Patient presented to the emergency department was noted to have an elevated WBC. Ultrasound the abdomen revealed a distended gallbladder with gallstones. There is tenderness with palpation of the gallbladder. Review of Systems Review of Systems: Yes all other systems are reviewed and are negative Constitutional: Constitutional: Denies chills, Denies fever(s), Denies headache(s), Reports malaise, Reports poor appetite and Denies weakness ENT: Denies headache(s) Cardiovascular: Cardiovascular: Denies chest pain, Denies irregular heart rhythm, Denies palpitations and Denies dyspnea Respiratory: Respiratory: Denies cough, Denies excessive phlegm production and Denies dyspnea Gastrointestinal: Gastrointestinal: Reports abdominal pain, Denies bloating, Denies change in bowel habits, Denies constipation, Denies heartburn, Reports diarrhea, Reports nausea and Reports vomiting Comments: Pain with inspiration Genitourinary: Genitourinary: Denies difficulty urinating and Denies urinary frequency Musculoskeletal: Musculoskeletal: Denies back pain, Denies muscle weakness and Denies numbness Integumentary/Breasts: Skin/Breast: Denies changing lesions and Denies unusual bruising Neurologic: Denies headache(s), Denies numbness, Denies paresthesias and Denies weakness Psychiatric: Psychiatric: Denies anxiety and Denies depression Endocrine: Endocrine: Denies palpitations Hematologic/Lymphatic: Hematologic/Lymphatic: Denies lymphadenopathy PMF Past Medical History Medical History Diarrhea due to malabsorption Frequent loose stools Obesity (BMI 30-39.9) Vitamin D deficiency Family History Family History Mother Arthritis Father Parkinsons Surgical History Surgical History History of gastric bypass (~04/05/20) Status post laparoscopic sleeve gastrectomy Social History Social History Household Members: Spouse and Children Housing: House Do you presently have visiting nurse or other home services: No Alcohol intake: unknown Patient Tobacco Use Status: Never used Tobacco Smoked in Last 30 Days: No e-Cigarette/Vaping Use: Never Used Second Hand Smoke Exposure: No Use of substances other than those prescribed or required for medical reasons: No Currently Displaying Signs/Symptoms of Drug Intoxication Withdrawal: No Any prior treatment program specific to substance use: No Have you been hit, kicked, punched, or otherwise hurt by someone within the past year? If so, by whom?: No Do you feel safe in your current relationship?: Yes Is there a partner from a previous relationship who is making you feel unsafe now?: No Are you made to feel afraid or neglected: No Advance Directives: No Advance Directives Information Provided: No Do you have thoughts of harming others: None Do you have a plan to hurt others: No Plan Recently lost weight without trying: No Eating poorly because of decreased appetite: No Nutrition Risks: No Nutritional Risk Poor oral hygiene: No service: No Current occupational status: unemployed Cognitive needs: No Hearing needs: No Vision needs: Yes Meds Allergies Allergy/AdvReac Type Severity Reaction Status Date / Time No Known Allergies Allergy Verified 03/13/22 10:52 Active Medications: Current Medications Sodium Chloride (Ns) 1,000 mls @ 999 mls/hr IV .Q1H1M MCKENZIE Stop: 03/18/22 17:00 Last Admin: 03/18/22 16:29 Dose: 999 mls/hr Pharmacy Consult (Consult Rx Perform Med Rec) 1 each MISCELLANE ONCE PRN PRN Reason: Consult order Home Medications Medication Instructions Recorded Confirmed Last Taken Type blood sugar diagnostic #10 ea 05/03/20 03/13/22 Unknown History multivitamin 1 tab PO DAILY 10/01/20 03/18/22 Unknown History Physical Exam Vital Signs: Vital Signs: Last Vital Signs Temp 97.9 F 03/18/22 16:00 Pulse 61 03/18/22 16:00 Resp 16 03/18/22 16:00 BP 130/65 03/18/22 16:00 Pulse Ox 96 03/18/22 16:00 O2 Del Method 03/18/22 16:00 BMI result Body Mass Index 40.6 Const: General: cooperative, ill appearing and tired appearing Nutritional Appearance: overweight Orientation/consciousness: patient oriented x3 Limitations: no limitations HEENT: Head: Yes normocephalic and Yes atraumatic Ears: hearing grossly normal bilaterally Resp: Effort & Inspection: normal respiratory effort, no audible wheezes, no cough and no respiratory distress Cardio: Jugular venous distension: no JVD GI: Inspection: Yes normal to inspection Palpation (GI): Soft to palpation and Tenderness to palpation present (GI) in the LUQ, in the RUQ and Giles's sign positive Percussion: Yes normal to percussion Auscultation: normal bowel sounds Rectal Exam - Male: Yes deferred Skin: Other: Warm, dry, no rash Neuro: General: patient oriented x3 Extrem: General: Yes no clubbing, cyanosis or edema Results Labs 03/18/22 15:01 03/18/22 15:01 Labs: Abnormal lab results 03/18/22 03/18/22 03/18/22 Range/Units 15:01 15:01 15:07 WBC 12.8 H (4.8-10.8) X10*3/uL MPV 8.9 L (9.4-12.4) fL Immature Gran % (Auto) 0.5 H (0.0-0.4) % Neut % (Auto) 85.3 H (45-73) % Lymph % (Auto) 9.4 L (20-40) % Abs Immat Gran (auto) 0.06 H (0.00-0.03) X10*3/uL Absolute Neuts (auto) 10.9 H (2.0-8.3) x10*3/uL Anion Gap 11 L (12-20) Random Glucose 181 H (60-115) mg/dL Ur Specific [place] >= 1.030 H (1.005-1.025) Short CBC 03/18/22 Range/Units 15:01 WBC 12.8 H (4.8-10.8) X10*3/uL Hgb 14.5 (14.0-18.0) g/dl Hct 43.7 (42.0-52.0) % Plt Count 240 (160-400) X10*3/uL BMP 03/18/22 15:01 Sodium 141 Potassium 4.0 Chloride 106 Carbon Dioxide 28 BUN 14 Creatinine 0.70 Calcium 9.1 Liver Function 03/18/22 Range/Units 15:01 Total Bilirubin 0.4 (0.0-1.0) mg/dL Direct Bilirubin < 0.2 (0.0-0.5) mg/dL AST 16 (5-37) U/L ALT 24 (0-40) U/L Alkaline Phosphatase 89 (39-117) U/L Albumin 4.5 (3.5-5.0) g/dL Urine 03/18/22 Range/Units 15:07 Urine Color Yellow Urine Appearance Clear Urine pH 6.0 (5.0-9.0) Ur Specific [place] >= 1.030 H (1.005-1.025) Urine Protein Negative (Neg-Trace) mg/dL Urine Glucose (UA) Negative (Negative) mg/dL All other labs normal. Assessment and Plan (1) Cholecystitis: Status: Acute (2) Status post gastric bypass for obesity: Status: Acute Plan 36-year-old male patient presenting with acute onset of abdominal pain in the epigastrium and radiating into the back. Pain is become quite severe and associated with nausea and vomiting. He reports decreased appetite. Ultrasound revealed a distended gallbladder with small gallstones. There is a sonographic Giles sign. Examination of the abdomen does reveal tenderness in the right upper quadrant and epigastrium with a positive Giles sign. CT abdomen and pelvis confirms a dilated gallbladder consistent with acute cholecystitis. Patient is s/p gastric bypass. I reviewed the findings in detail with the patient and discussed laparoscopic or possible open cholecystectomy. After a discussion of the procedure, alternatives and risks, he consents to a laparoscopic or possible open cholecystectomy. Time Spent With Patient Time: Total time managing care of this patient today _50_ minutes. Procedures Date of Service Date of Service: 03/19/22
--- NOTE | 2022-03-18 16:59 | PC.NURSE ---
Patient to CT tolerasted IVF and IV pain meds continues on IV ABX with no ill effect. ABD soft tender right >left BS quad x 4 no guarding noted patient reports episodes of diarrhea. AOx 4 no respiratory distress noted. IV access obtained labs collected and sent will CTM
[2022-03-18] MEDS: HYDROmorphone HCl 1 MG/ML SYRINGE IVPUSH (17:46)
--- NOTE | 2022-03-18 18:56 | PC.NURSE ---
Chat sent to inpatient MD concerning pain awaitng orders.
[2022-03-18] MEDS: ondansetron HCL 4 MG/2 ML VIAL IVPUSH (19:26)
[2022-03-18] MEDS: HYDROmorphone HCl 2 MG/ML VIAL 1.5 MG IVPUSH ×2 (19:27→23:43)
--- NOTE | 2022-03-18 19:33 | PC.NURSE ---
This flex o writer operator assumed care of this Pt at 1900. PT A&Ox4, reports 12/15 abd pain. Meds given as documented. Visitor at bedside.
--- NOTE | 2022-03-18 20:27 | PC.NURSE ---
Pt reports effectiveness of pain medication. Reports tolerable pain 4/10.
[2022-03-18] MEDS: 0.9 % Sodium Chloride Flush 3 ML SYRINGE IVFLUSH (23:47)
[2022-03-19] VITALS (12 sets, daily range): BP systolic 105–141; BP diastolic 41–80; PULSE 68–100; RESP 16–28; TEMP 36.6–38.3; O2SAT 94–97; BMI 41.3
[2022-03-19] MEDS: ondansetron HCL 4 MG/2 ML VIAL IVPUSH (01:45)
[2022-03-19] MEDS: HYDROmorphone HCl 2 MG/ML VIAL 1.5 MG IVPUSH ×2 (04:39→08:12)
[2022-03-19] MEDS: Piperacillin Sodium/Tazobactam 3.375 GM in 0.9 % Sodium Chloride 50 ML IV ×3 (05:20→22:54)
[2022-03-19 05:52] LABS: MANUAL DIFF FLAG NO
[2022-03-19 05:59] LABS: Basophils Percent Auto 0.2 % (0-2); Eosinophils Percent Auto 0.1 % (0-4); Hematocrit 40.5 % (42.0-52.0); Hemoglobin 13.5 g/dl (14.0-18.0); Imm Gran Abs Auto 0.05 X10*3/uL (0.00-0.03); Imm Gran Pct Auto 0.4 % (0.0-0.4); Lymphocytes Absolute Auto 1.1 X10*3/uL (1.2-4.9); Lymphocytes Percent Auto 7.8 % (20-40); Mean Corpuscular HGB Conc 33.3 g/dl (31.0-36.0); Mean Corpuscular Hemoglobin 28.1 pg (27.0-33.0); Mean Corpuscular Volume 84.4 fL (80.0-98.0); Mean Platelet Volume 9.3 fL (9.4-12.4); Monocytes Absolute Auto 1.1 X10*3/uL (0.1-1.2); Neutrophils Absolute Auto 11.3 x10*3/uL (2.0-8.3); Neutrophils Percent Auto 83.5 % (45-73); Platelet Count 219 X10*3/uL (160-400); Red Cell Distribution Width 13.4 % (11.0-16.0); White Blood Count 13.5 X10*3/uL (4.8-10.8)
[2022-03-19 06:40] LABS: Anion Gap 10 (12-20); Blood Urea Nitrogen 13 mg/dL (9-16); Calcium 8.6 mg/dL (8.4-10.2); Carbon Dioxide 28 mmol/L (22-29); Chloride 105 mmol/L (96-108); Estimated Glomerular Filt Rate > 60; Glucose Random 146 mg/dL (60-115); Potassium 3.3 mmol/L (3.3-5.1); Sodium 140 mmol/L (135-145)
[2022-03-19] MEDS: 0.9 % Sodium Chloride Flush 3 ML SYRINGE IVFLUSH ×2 (08:08→23:24)
--- NOTE | 2022-03-19 10:35 | MHC.CM.PN ---
PT REPORTS HE LIVES WITH HIS AND CHILDREN AND IS INDEPENDENT WITH CARE PT DENIES USE OF DME OR HOME SERVICES PT IS COVID VAX X 3 HE IS UNSURE IF HE HAS A HCP AND WILL DISCUSS WITH PCP: JOAQUIN MOORE DCP: HOME NO SERVICES VIA FAMILY TRANSPORT
--- NOTE | 2022-03-19 12:21 | P.CONAN_ITS ---
[facility] Active Problems Active Problems: All Active Problems (Updated 03/18/22 @ 16:15 by STAS Berger) Cholecystitis (Acute) Panniculus (Acute) Paresthesia of both lower extremities (Acute) Cutaneous cyst (Acute) Other cyst of bone, left lower leg (Acute) Upper respiratory tract infection (Acute) Diabetes mellitus type 2, controlled (Acute) Obesity (BMI 30-39.9) (Acute) Vitamin D deficiency (Acute) History of diabetes mellitus (Acute) Annual physical exam (Acute) Frequent loose stools (Acute) Diarrhea due to malabsorption (Acute) Status post gastric bypass for obesity (Acute) Past Medical History Medical History Diarrhea due to malabsorption Frequent loose stools Obesity (BMI 30-39.9) Vitamin D deficiency Family History Family History Mother Arthritis Father Parkinsons Family history of problems with anesthesia: No Surgical History Surgical History History of gastric bypass (~04/05/20) Status post laparoscopic sleeve gastrectomy History of Problems with Anesthesia: No Social History Social History Household Members: Spouse and Children Housing: House Do you presently have visiting nurse or other home services: No Alcohol intake: unknown Patient Tobacco Use Status: Never used Tobacco Smoked in Last 30 Days: No e-Cigarette/Vaping Use: Never Used Second Hand Smoke Exposure: No Use of substances other than those prescribed or required for medical reasons: No Currently Displaying Signs/Symptoms of Drug Intoxication Withdrawal: No Any prior treatment program specific to substance use: No Have you been hit, kicked, punched, or otherwise hurt by someone within the past year? If so, by whom?: No Do you feel safe in your current relationship?: Yes Is there a partner from a previous relationship who is making you feel unsafe now?: No Are you made to feel afraid or neglected: No Are you DNR?: No Advance Directives: No Advance Directives Information Provided: No Do you have thoughts of harming others: None Do you have a plan to hurt others: No Plan Recently lost weight without trying: No Eating poorly because of decreased appetite: No Nutrition Risks: No Nutritional Risk Poor oral hygiene: No service: No Current occupational status: unemployed Cognitive needs: No Hearing needs: No Vision needs: Yes Meds Allergies Allergy/AdvReac Type Severity Reaction Status Date / Time No Known Allergies Allergy Verified 03/13/22 10:52 Active Medications: Current Medications Acetaminophen (Acetaminophen 325 Mg Tablet) 975 mg PO DAILY PRN PRN Reason: Fever Hydromorphone HCl (Hydromorphone Hcl 2 Mg/Ml Vial) 1.5 mg IVPUSH RQ4H PRN; Protocol PRN Reason: Pain, Severe (Pain Scale 7-10) Last Admin: 03/19/22 08:12 Dose: 1.5 mg Piperacillin Sod/Tazobactam (Sod 3.375 gm/ Sodium Chloride) 50 mls @ 100 mls/hr IV Q6H [facility] Last Admin: 03/19/22 12:06 Dose: Not Given Ondansetron HCl (Ondansetron Hcl 4 Mg/2 Ml Vial) 4 mg IVPUSH RQ6H PRN PRN Reason: Nausea Last Admin: 03/19/22 01:45 Dose: 4 mg Pharmacy Consult (Consult Rx Perform Med Rec) 1 each MISCELLANE ONCE PRN PRN Reason: Consult order Sodium Chloride (0.9 % Sodium Chloride Flush 3 Ml Syringe) 3 ml IVFLUSH QSHIFT [facility] Last Admin: 03/19/22 08:08 Dose: 3 ml Home Medications Medication Instructions Recorded Confirmed Last Taken Type blood sugar diagnostic #10 ea 05/03/20 03/13/22 Unknown History multivitamin 1 tab PO DAILY 10/01/20 03/18/22 Unknown History Exam Exam Date and Time: March 19, 2022 1221 Height,Weight and Vital Signs: Height 5 ft 8 in Weight 123.4 kg Last Vital Signs Temp 98.6 F 03/19/22 11:19 Pulse 96 03/19/22 11:19 Resp 20 03/19/22 11:19 BP 110/41 L 03/19/22 11:19 Pulse Ox 94 03/19/22 11:19 O2 Del Method 03/19/22 11:19 Pertinent Lab Results Pertinent Lab Results: Laboratory Tests 03/18/22 03/18/22 03/18/22 15:01 15:01 15:07 WBC 12.8 H RBC 5.24 Hgb 14.5 Hct 43.7 MCV 83.4 MCH 27.7 MCHC 33.2 RDW 13.3 Plt Count 240 MPV 8.9 L Immature Gran % (Auto) 0.5 H Neut % (Auto) 85.3 H Lymph % (Auto) 9.[address] [place] % (Auto) 3.9 Eos % (Auto) 0.5 Baso % (Auto) 0.4 Lymph # (Auto) 1.2 [place] # (Auto) 0.5 Eos # (Auto) 0.1 Baso # (Auto) 0.1 Abs Immat Gran (auto) 0.06 H Absolute Neuts (auto) 10.9 H Absolute Nucleated RBC 0.000 Nucleated RBC % (auto) 0.0 Sodium 141 Potassium 4.0 Chloride 106 Carbon Dioxide 28 Anion Gap 11 L BUN 14 Creatinine 0.70 Estim Creat Clear Calc 181.0 Estimated GFR > 60 Random Glucose 181 H Lactic Acid Calcium 9.1 Magnesium 2.3 Total Bilirubin 0.4 Direct Bilirubin < 0.2 AST 16 ALT 24 Alkaline Phosphatase 89 Total Protein 7.2 Albumin 4.5 Lipase 27 Urine Color Yellow Urine Appearance Clear Urine pH 6.0 Ur Specific [place] >= 1.030 H Urine Protein Negative Urine Glucose (UA) Negative Urine Ketones Negative Urine Blood Negative Urine Nitrite Negative Ur Leukocyte Esterase Negative COVID-19 (REMY) COVID-19 Clin Com 03/18/22 03/18/22 03/19/22 16:14 16:14 05:22 WBC 13.5 H RBC 4.80 Hgb 13.5 L Hct 40.5 L MCV 84.4 MCH 28.1 MCHC 33.3 RDW 13.4 Plt Count 219 MPV 9.3 L Immature Gran % (Auto) 0.4 Neut % (Auto) 83.5 H Lymph % (Auto) 7.[address] [place] % (Auto) 8.0 Eos % (Auto) 0.1 Baso % (Auto) 0.2 Lymph # (Auto) 1.[address] [place] # (Auto) 1.1 Eos # (Auto) 0.0 Baso # (Auto) 0.0 Abs Immat Gran (auto) 0.05 H Absolute Neuts (auto) 11.3 H Absolute Nucleated RBC 0.000 Nucleated RBC % (auto) 0.0 Sodium Potassium Chloride Carbon Dioxide Anion Gap BUN Creatinine Estim Creat Clear Calc Estimated GFR Random Glucose Lactic Acid 1.2 Calcium Magnesium Total Bilirubin Direct Bilirubin AST ALT Alkaline Phosphatase Total Protein Albumin Lipase Urine Color Urine Appearance Urine pH Ur Specific [place] Urine Protein Urine Glucose (UA) Urine Ketones Urine Blood Urine Nitrite Ur Leukocyte Esterase COVID-19 (REMY) Negative COVID-19 Clin Com See Note 03/19/22 05:22 WBC RBC Hgb Hct MCV MCH MCHC RDW Plt Count MPV Immature Gran % (Auto) Neut % (Auto) Lymph % (Auto) [place] % (Auto) Eos % (Auto) Baso % (Auto) Lymph # (Auto) [place] # (Auto) Eos # (Auto) Baso # (Auto) Abs Immat Gran (auto) Absolute Neuts (auto) Absolute Nucleated RBC Nucleated RBC % (auto) Sodium 140 Potassium 3.3 Chloride 105 Carbon Dioxide 28 Anion Gap 10 L BUN 13 Creatinine 0.66 Estim Creat Clear Calc 194.0 Estimated GFR > 60 Random Glucose 146 H Lactic Acid Calcium 8.6 Magnesium Total Bilirubin Direct Bilirubin AST ALT Alkaline Phosphatase Total Protein Albumin Lipase Urine Color Urine Appearance Urine pH Ur Specific [place] Urine Protein Urine Glucose (UA) Urine Ketones Urine Blood Urine Nitrite Ur Leukocyte Esterase COVID-19 (REMY) COVID-19 Clin Com Airway Heart: RRR Lungs: CTA Assessment and Plan Final Anesthetic Review Family History of Problems with Anesthesia: No History of Problems with Anesthesia: No NPO: Yes ASA Class: III and Emergency Final Preanesthetic Review: Meds/Allgs Chart Reviewed, Consent Obtained/Reviewed and Anes Risks/Benef Reviewed Patient Risk: Intermediate Procedure Risk: Low Anesthetic Plan Anesthetic Plan: GA Disposition: Standard PACU
--- NOTE | 2022-03-19 14:51 | W.PM.OPN ---
Operative Note Operative Note Date of Service: 03/19/22 Narrative: Preoperative diagnosis: Acute cholecystitis, cholelithiasis Postoperative diagnosis: Same Procedure: Laparoscopic cholecystectomy Surgeon: Marko Arrieta MD Army Manager: TRINITY Atkins Anesthesia: General endotracheal Indications for procedure: 36-year-old male patient presenting with complaints of abdominal pain in the epigastrium into the back associated with nausea, vomiting, and food intolerance. Patient underwent ultrasound and CT abdomen and pelvis revealed a thickened gallbladder with multiple gallstones. Findings were consistent with acute cholecystitis. Operative findings: Acutely dilated and inflamed gallbladder consistent with acute cholecystitis. Multiple small gallstones within the gallbladder. Specimen: gallbladder Estimated blood loss:25 mls Complications: none Drain: FAUSTINA to bulb suction Procedure details: Patient was brought to the OR and placed in a supine position. After administering general anesthesia the patient's abdomen was prepped with ChloraPrep and draped in a sterile fashion. Local anesthesia consisting of 0.5% Sensorcaine without epinephrine was infiltrated in a periumbilical region. A 5 mm incision was made above the umbilicus in a transverse fashion. The Veress needle was then inserted while elevating abdominal cavity with towel clips. After positive drop test the abdomen was insufflated to a pressure of 15 mm of mercury. The Veress needle was then removed and a 5 mm trocar inserted. The camera was inserted in the abdomen explored. A 12 mm trocar was then placed in the epigastrium. Two 5 mm trocars placed in the right upper quadrant by the certified physician assistant. The patient was placed in reverse Trendelenburg positioning and rotated to the left. The gallbladder was grasped with the fundus and retracted cephalad by the certified physician assistant. The infundibulum was then grasped and retracted away from the liver bed, also by the certified physician assistant. The Dolphin dissected was then used by the surgeon to dissect the peritoneum off the infundibulum to reveal the junction with the cystic duct. Cystic artery was noted slightly medial and posterior to the cystic duct. After obtaining a critical view the cystic duct was doubly clipped and divided. The cystic artery was then doubly clipped and divided. The gallbladder was then dissected off the liver bed using electrocautery with an L hook. Hemostasis was assured all times using the electrocautery. When the gallbladder is completely dissected off the liver bed was placed in an Endo-Catch bag and brought out through the epigastric incision. The gallbladder was sent to pathology for further examination. The abdomen was then re-examined. The liver bed was irrigated and suctioned dry. A Sam-Loo drain was left in place and brought through the lateral trocar site secured to the skin using a nylon suture. This was placed at the liver bed due to the inflammation. Several small gallstones were dropped turned the procedure. Every effort was made to remove the drop stones. No bleeding or bile leak could be identified. CO2 was then evacuated and all trocars removed. Fascia was closed at the epigastric incision using a [id number] 0 Polysorb suture. Skin was closed in all incisions using a subcuticular 4 0 Polysorb suture by both the surgeon and certified physician assistant. Sterile dressings consisting of Steri-Strips, 2 x 2 gauze, and Tegaderm were then applied. The patient tolerated the procedure well. Sponge instrument and needle counts reported as correct. The patient was transferred to PACU in stable condition.
[2022-03-19] MEDS: Acetaminophen 1,000 MG/100 ML PIGGYBACK 400 MG IV ×2 (15:13→22:18)
[2022-03-19] MEDS: Ketorolac Tromethamine 30 MG/ML VIAL IVPUSH (15:35)
[2022-03-19] MEDS: oxyCODONE HCl Immed Release 5 MG TABLET PO (22:57)
[2022-03-20] VITALS: BP 142/62; PULSE 85; RESP 18; TEMP 36.3; O2SAT 96
[2022-03-20 03:46] VITALS: BP 113/62; PULSE 73; RESP 18; TEMP 37.1; O2SAT 95
[2022-03-20] MEDS: Acetaminophen 1,000 MG/100 ML PIGGYBACK 400 MG IV ×2 (04:01→09:54)
[2022-03-20] MEDS: Piperacillin Sodium/Tazobactam 3.375 GM in 0.9 % Sodium Chloride 50 ML IV (04:19)
[2022-03-20] MEDS: HYDROmorphone HCl 0.5 MG/0.5 ML SYRINGE 1 MG IVPUSH (04:23)
[2022-03-20 07:12] VITALS: BP 129/69; PULSE 68; RESP 18; TEMP 36; O2SAT 95
--- NOTE | 2022-03-20 07:44 | PM.PNGS ---
Subjective Subjective Date of Service: 03/20/22 Interval history: Patient reports incisional pain but feels much improved this morning with no nausea, vomiting, fever or chills. Was able to tolerate a regular diet last evening. Feels ready for discharge to home. Physical Exam Vital Signs: Vital Signs: Last Vital Signs Temp 96.8 F 03/20/22 07:12 Pulse 68 03/20/22 07:12 Resp 18 03/20/22 07:12 BP 129/69 03/20/22 07:12 Pulse Ox 95 03/20/22 07:12 O2 Del Method 03/20/22 07:12 O2 Flow Rate 3 03/19/22 16:00 BMI result Body Mass Index 41.3 Const: General: comfortable and no acute distress Nutritional Appearance: well nourished Orientation/consciousness: patient oriented x3 Limitations: no limitations Resp: Effort & Inspection: normal respiratory effort Auscultation: clear to auscultation bilaterally GI: Other: Incisions clean, dry, and intact. Small amount of bloody discharge noted. FAUSTINA with serosanguineous discharge. Some bloody discharge at exit site. Skin: General skin exam: no rashes or lesions noted Neuro: General: patient oriented x3 Objective Data Active Medications Hydromorphone HCl (Hydromorphone Hcl 0.5 Mg/0.5 Ml Syringe) 0.25 mg IVPUSH Q5M PRN; Protocol PRN Reason: Pain, Severe (Pain Scale 7-10) Hydromorphone HCl (Hydromorphone Hcl 0.5 Mg/0.5 Ml Syringe) 1 mg IVPUSH Q3H PRN; Protocol PRN Reason: Pain, Severe (Pain Scale 7-10) Last Admin: 03/20/22 04:23 Dose: 1 mg Documented By: MATTEO Piperacillin Sod/Tazobactam (Sod 3.375 gm/ Sodium Chloride) 50 mls @ 100 mls/hr IV Q6H [facility] Last Infusion: 03/20/22 04:50 Dose: 0 mls/hr Documented By: MATTEO Promethazine HCl 12.5 mg/ (Sodium Chloride) 50.5 mls @ 202 mls/hr IV ONCE PRN PRN Reason: Nausea and Vomiting Acetaminophen (Ofirmev) 1,000 mg in 100 mls @ 400 mls/hr IV Q6H [facility] Stop: 03/20/22 10:28 Last Infusion: 03/20/22 04:17 Dose: 0 mls/hr Documented By: MATTEO Ondansetron HCl (Ondansetron Hcl 4 Mg/2 Ml Vial) 4 mg IVPUSH RQ6H PRN PRN Reason: Nausea Last Admin: 03/19/22 01:45 Dose: 4 mg Documented By: OLRE Oxycodone HCl (Oxycodone Hcl Immed Release 5 Mg Tablet) 5 mg PO ONCE PRN PRN Reason: Pain, Severe (Pain Scale 7-10) Oxycodone HCl (Oxycodone Hcl Immed Release 5 Mg Tablet) 5 mg PO Q6H PRN PRN Reason: Pain, Moderate (Pain Scale 4-6 Last Admin: 03/19/22 22:57 Dose: 5 mg Documented By: MATTEO Pharmacy Consult (Consult Rx Perform Med Rec) 1 each MISCELLANE ONCE PRN PRN Reason: Consult order Sodium Chloride (0.9 % Sodium Chloride Flush 3 Ml Syringe) 3 ml IVFLUSH QSHIFT [facility] Last Admin: 03/19/22 23:24 Dose: 3 ml Documented By: MATTEO Zolpidem Tartrate (Zolpidem Tartrate 5 Mg Tablet) 5 mg PO BEDTIME PRN PRN Reason: Insomnia Labs 03/19/22 05:22 03/19/22 05:22 Microbiology Microbiology Results: Microbiology 03/18/22 16:14 Blood Culture - Preliminary Blood - Venous No growth after 24 hours. 03/18/22 16:14 Blood Culture - Preliminary Blood - Venous No growth after 24 hours. Procedures Date of Service Date of Service: 03/20/22 Progress Note: A&P Assessment and plan (1) Cholecystitis: Status: Acute Plan 36-year-old male patient status post laparoscopic cholecystectomy for acute cholecystitis due to cholelithiasis. He tolerated the procedure well and his wounds are healing nicely. Sam-Loo is producing mostly serous fluid. Will remove FAUSTINA this morning and discharge to home. He should remain on a low-fat diet and avoid lifting greater than 10 lb for the next 2 weeks. He will follow up in our office in approximately 1 week. He is welcome to call sooner for any concerns. Time Spent With Patient Time: Total time managing care of this patient today ____ minutes. Quality Stroke Does the patient have a stroke diagnosis?: No VTE Prior VTE?: No VTE Risk Level:: Surgical - low VTE Device Contraindication: N/A - Device Ordered VTE Drug Contraindication: Treatment Not Indicated
--- NOTE | 2022-03-20 08:20 | HO.POSTANES ---
Post Anesthesia Evaluation Post Anesthesia Evaluation Vital Signs: Vital Signs Temp Pulse Resp BP Pulse Ox O2 Del Method 03/20/22 07:12 96.8 F 68 18 129/69 95 Room Air 03/20/22 03:46 98.8 F 73 18 113/62 95 Room Air 03/20/22 00:00 97.4 F 85 18 142/62 H 96 Room Air Anesthesia: General Endotracheal-GETA Mental Status: Awake Pain Control: Satisfactory Nausea/Vomiting: None Hydration: Adequate Anesthesia-Related Issues: No Anes. Related Issues
--- NOTE | 2022-03-20 09:37 | P.DS_ITS ---
DS: Providers Provider Date of Service: 03/20/22 Date of admission: 03/18/22 18:23 Primary care physician: Rajan Clark MD Attending physician on admission: Marko Arrieta Consults: 03/18/22 16:09 Consult to General Surgery Stat Consulting Provider: Marko Arrieta Reason for consultation: Cholecysitis ? Attending physician on discharge: Marko Arrieta DS: Diagnosis Discharge Diagnosis (1) Cholecystitis: Status: Acute DS: Summary Hospital Course Hospital Course: HPI ON ADMISSION: 36-year-old male patient presenting with complaints of abdominal pain. The pain began in the left and right flank and back and in gradually radiated to the epigastrium. The pain began yesterday evening and increased in severity throughout the night making it difficult for him to sleep. The pain is currently in the epigastrium radiating into the back. He reports nausea and vomiting even of liquids. He has been having watery stool for the past day. He reports a prior history of bariatric surgery x2 performed at [facility]. He reports fatty stool following the 2nd procedure. His current stool is looser than normal. Patient presented to the emergency department was noted to have an elevated WBC. Ultrasound the abdomen revealed a distended gallbladder with gallstones. There is tenderness with palpation of the gallbladder. CT abdomen and pelvis confirms a dilated gallbladder consistent with acute cholecystitis. HOSPITAL COURSE: The patient was admitted to the surgical service for further treatment of the acute cholecystitis. Findings in detail were discussed and it was recommended to proceed with laparoscopic or possible open cholecystectomy.? After a discussion of the procedure, alternatives and risks, he consents to a laparoscopic or possible open cholecystectomy.?He was kept NPO, on IVF and IV zosyn. He was added onto the OR schedule for the following day. On 03/19/22, a laparoscopic cholecystectomy was performed by Dr. Arrieta without complication. A FAUSTINA drain was placed intraoperatively. The patient tolerated the procedure well. He had an uncomplicated recovery course. On POD #1, he felt well with mild incisional pain and tolerating a solid diet without nausea or vomiting. His abdomen was benign with appropriate post op tenderness and dressings intact. His FAUSTINA drain had scanty serous output and was therefore removed. He felt ready for discharge to home. He was discharged to home on 03/20/22 in stable condition. He is to follow up with Dr. Arrieta in office in 1 week. Status at Discharge Functional status at discharge: independent ambulation Overall status at discharge: patient is progressing back to baseline Time Spent with Patient Time attestation: Total time managing care of this patient today ____ minutes. Discharge coordination time: Less than 30 minutes Quality: Safe Use of Opioids Does Pt have an Active Cancer Diagnosis on the Problem List?: No Quality: Stroke Does the patient have a stroke diagnosis?: No Physical Exam Vital Signs: Vital Signs: Last Vital Signs Temp 96.8 F 03/20/22 07:12 Pulse 68 03/20/22 07:12 Resp 18 03/20/22 07:12 BP 129/69 03/20/22 07:12 Pulse Ox 95 03/20/22 07:12 O2 Del Method 03/20/22 07:12 O2 Flow Rate 3 03/19/22 16:00 BMI result Body Mass Index 41.3 Const: General: comfortable, no acute distress and alert Orientation/consciousness: patient oriented x3 Resp: Effort & Inspection: normal respiratory effort GI: Other: FAUSTINA with serous output, nonbilious Inspection: No distended and Yes incision (dressings c/d/i) Palpation (GI): Soft to palpation, Tenderness to palpation present (GI) (mild, incisional), no guarding and not rigid Percussion: Yes normal to percussion Skin: General skin exam: no rashes or lesions noted Neuro: General: patient oriented x3 DS: Data Data Completed and Pending Pending studies at discharge: Pending at discharge 03/19/22 13:43 Surgical [PTH] Routine Labs on day of discharge: Preliminary micro results at discharge 03/18/22 16:14 Blood Culture - Preliminary Blood - Venous No growth after 24 hours. 03/18/22 16:14 Blood Culture - Preliminary Blood - Venous No growth after 24 hours. Discharge Plan Discharge Anticipated Discharge Date/Time: 03/20/22 07:47 Patient Disposition: Home, Self-Care Discharge Diagnosis: Acute cholecystitis due to cholelithiasis Referrals: Rajan Clark MD [Primary Care Provider] - 1 Week Marko Arrieta MD [Physician] - 1 Week Discharge Medications: New oxycodone 5 mg tablet 5 mg PO Q6H PRN (Reason: pain (scale score 7-10)) Qty: 15 0RF Rx Instructions: Partial Fill upon patient request. Continued ibuprofen 800 mg tablet 800 mg PO Q8H PRN (Reason: pain) 30 Days Qty: 90 0RF Rx Instructions: Take with food (DME) blood sugar diagnostic Strip See Rx Instructions Not Applicable DAILY Qty: 10 Rx Instructions: As directed multivitamin Tablet 1 tab PO DAILY cholecalciferol (vitamin D3) 50 mcg (2,000 unit) capsule 50 mcg PO DAILY 90 Days Qty: 90 3RF Discharge Orders: Discharge Order (Routine); Ordered 03/20/22 Ordered By: Marko Arrieta Diet: Low fat, low cholesterol Activity on Discharge: No heavy lifting Stand Alone Forms: Patient Portal Discharge page, Work/School Release Activity Restrictions/Additional Instructions: No lifting > 10 pounds for 2 weeks Remain on low fat diet for one month No driving for one week Ice to the incision x 24 hours Remove dressing in 3 days Follow up in office in one week. Care Plan Goals: Return to normal activity and diet Health Concerns: Abdominal pain epigastrium and right upper quadrant Plan of Treatment: Laparoscopic cholecystectomy on 03/19/2022 Assessment: Acute cholecystitis due to cholelithiasis Patient Instructions: Low Fat Diet (DC)
[2022-03-20] MEDS: 0.9 % Sodium Chloride Flush 3 ML SYRINGE IVFLUSH (09:59)
[2022-03-20 11:11] VITALS: BP 117/57; PULSE 68; RESP 18; TEMP 36.1; O2SAT 95
== END 2022-03-20 11:15 | disposition home or self-care (01) | DRG 263 ==
LOC: HO.ED 16:16 → HO.EDOVER 18:29 → HO.S3 21:34
PROVIDERS: Physician Assistant; Admitting Provider Surgery; Emergency Provider Internal Medicine; PCP Internal Medicine; Visit Provider Surgery
PROC: 0FT44ZZ Resection of Gallbladder, Percutaneous Endoscopic Approach (ICD-10-PCS; CPT 47562; principal; 2022-03-19 12:10)
DX: K80.00 Calculus of gallbladder with acute cholecystitis without obstruction (principal); Z20.822 Contact with and (suspected) exposure to COVID-19; Z98.84 Bariatric surgery status; Z79.899 Other long term (current) drug therapy
CPT/HCPCS: 47562; 36415; 74177; 76705; 80048; 80076; 81003; 83605; 83690; 83735; 85025; 87040; 87635; 88304; 99285; J0131; J1100; J1170; J1885; J2250; J2270; J2405; J2543; J2795; J3010

== ENCOUNTER → 2022-03-27 09:09 | Outpatient (BNVA) | payer OTHER, SELFPAY | PROVIDERS: PCP Internal Medicine; Referring Provider Internal Medicine; Visit Provider Surgery | DX: Z13.89 Encounter for screening for other disorder (principal) ==

== ENCOUNTER 2022-11-02 08:28 | Outpatient (AMB) | payer OTHER, SELFPAY ==
[2022-11-02 08:40] VITALS: BP 130/82; PULSE 62; O2SAT 98; BMI 42.2
--- NOTE | 2022-11-02 08:40 | A.OFFPC_ITS ---
Vital Signs 11/02/22 08:40 Height 5 ft 8 in Weight 277 lb 6 oz BMI 42.2 BP 130/82 Blood Pressure Location Lt brachial Position Sitting Pulse 62 Pulse Source Pulse Oximeter Pulse Oximetry (%) 98 Oxygen Delivery Method Room Air Intake Visit Reasons: joint pain for past few weeks Mold Checker Required: No Accompanied by: Self / Same As Patient Allergies No Known Allergies Allergy (Verified 11/02/22 09:14) Medication List - Last Reconciled 11/02/22 by Rajan Clark MD blood sugar diagnostic As directed cholecalciferol (vitamin D3) 50 mcg PO DAILY 90 days ibuprofen 800 mg PO Q8H PRN 30 days multivitamin 1 tab PO DAILY oxycodone 5 mg PO Q6H PRN Tobacco use date assessed: 11/02/22 Dental Screening Dental Screen Date: 11/02/22 Did you have a dental visit in the last 12 months?: No Did you have a dental problem in the last 6 months where you did not have access to dental care?: No Was dental information given to patient?: Patient has dentist HPI joint pain for past few weeks HPI Details Patient comes in today complaining of increasing multiple joint pains for the past 4 months States that his joints, especially his hands, sometimes swell up and he is hardly able to make a fist with his hands because of the swelling and pain Notes that several of his joints have been bothering him lately, including his right knee, both elbows, both hands, both shoulders and his left lower back States that the pain sometimes get worse late in the day or at night and he has not been able to get much sleep at times due to the pain States that his mother has rheumatoid arthritis and he is concerned that his symptoms may indicate that he also now has RA Would like to get his Ibuprofen Rx refilled in the meantime He denies any recent fever, headaches or dizziness Denies any chest pains, no SOB No nausea/vomiting, no abdominal pain No change in bowel habits noted Adds that he has noticed some dark skin lesions on the sides of his eyes that have been present for a while now and feels that they have been slowly getting larger lately - would like to know if these need to be checked out [facility] Medical History Cholecystitis Diarrhea due to malabsorption Frequent loose stools Obesity (BMI 30-39.9) Vitamin D deficiency Surgical History History of gastric bypass (~04/05/20) History of laparoscopic cholecystectomy (03/19/22) Status post gastric bypass for obesity Status post laparoscopic sleeve gastrectomy Family History Mother Arthritis Father Parkinsons Social History Household Members: Spouse and Children Housing: House Do you presently have visiting nurse or other home services: No Alcohol intake: unknown Patient Tobacco Use Status: Never used Tobacco e-Cigarette/Vaping Use: Never Used Second Hand Smoke Exposure: No service: No Current occupational status: unemployed Cognitive needs: No Hearing needs: No Vision needs: Yes Questionnaire PHQ-9 Over the last 2 weeks, how often have you been bothered by any of the following problems? 1. Little interest or pleasure in doing things: not at all 2. Feeling down, depressed, or hopeless: not at all 3. Trouble falling or staying asleep, or sleeping too much: not at all 4. Feeling tired or having little energy: not at all 5. Poor appetite or overeating: not at all 6. Feeling bad about yourself - or that you are a failure or have let yourself or your family down: not at all 7. Trouble concentrating on things, such as reading the newspaper or watching television: not at all 8. Moving or speaking so slowly that other people could have noticed. Or the opposite - being so fidgety or restless that you have been moving around a lot more than usual: not at all 9. Thoughts that you would be better off or of hurting yourself in some way: not at all Total score: 0 Depression Screening Interpretation: Negative 13854 - PHQ-9 Billing: Yes Source: Developed by Drs. Yosef Johnson, Christiana Yepez, Salinas Morgan and colleagues, with an educational caren from [employer]. Thrive Questionnaire Date Thrive assessed: 11/02/22 I am a: Patient What is your living situation today?: I have a steady place to live Within the past 12 months, did the food you bought not last and you didn't have the money to get more?: Never true Within the past 12 months, did you worry whether your food would run out before you got money to buy more?: Never true Do you have trouble paying for medicines?: No Do you have trouble getting transportation to medical appointments?: No Do you have trouble paying your heating and electricity bill?: No Do you have trouble taking care of your child, family member or friend?: No Do you have trouble with day-to-day activities such as bathing, preparing meals, shopping, managing finances, etc.?: No Are you currently unemployed and looking for a job?: No Are you interested in more education?: No Please select the resources that you would like help with: None Currently or been in a relationship where the following occur: no concerns reported AUDIT C Alcohol Use Questionnaire (AUDIT-C) 1. How often do you have a drink containing alcohol?: Monthly or less 2. How many drinks containing alcohol do you have on a typical day when you are drinking?: 1 or 2 3. How often do you have six or more drinks on one occasion?: Less than monthly Total Score: 2 Score Reviewed/Action Taken: Yes TODD-7 AMB Questionnaire TODD-7 Date TODD - 7 assessed: 11/02/22 Feeling nervous, anxious, or on edge: 0 = Not at all Not being able to stop or control worryin = Not at all Worrying too much about different things: 0 = Not at all Trouble relaxin = Not at all Being so restless that it is hard to sit still: 0 = Not at all Becoming easily annoyed or irritable: 0 = Not at all Feeling afraid as if something awful might happen: 0 = Not at all Total TODD-7 score (0-4 normal; 5-9 mild; 10-14 moderate; 15-21 severe): 0 Source: Developed by Drs. Yosef Johnson, Christinaa Yepez, Salinas Morgan and colleagues, with an educational caren from [employer]. Review of Systems Const Denies chills, Reports difficulty sleeping (at times lately due to joint pains), Denies fatigue, Denies fever(s) and Denies headache(s) ENT Denies dysphagia, Denies dizziness, Denies otalgia, Denies headache(s), Denies neck pain, Denies odynophagia and Denies sore throat Card Denies chest pain, Denies palpitations and Denies dyspnea Resp Denies cough and Denies dyspnea GI Denies abdominal pain, Denies constipation, Denies dysphagia, Denies heartburn, Denies diarrhea, Denies nausea, Denies odynophagia and Denies vomiting Denies dysuria, Denies nocturia and Denies urinary frequency Musc Reports back pain (over the left lower back), Reports arthralgias (involving multiple joints - see HPI), Reports joint swelling (on and off, especially in both hands) and Denies neck pain Skin/Breast Details: (+) few hyperpigmented lesions/patches on the face, mostly to the sides of both eyes Neuro Denies dizziness and Denies headache(s) Endo Denies fatigue and Denies palpitations Physical exam (Primary Care) Vital Signs: Last Vital Signs Pulse 62 11/02/22 08:40 BP 130/82 11/02/22 08:40 Pulse Ox 98 11/02/22 08:40 Oxygen Delivery Method Room Air 11/02/22 08:40 BMI result Body Mass Index 42.2 Tobacco/Smoking Status: Tobacco use Status Tobacco use date assessed 11/02/22 11/02/22 08:47 Patient Tobacco Use Status Never used Tobacco 11/02/22 08:47 e-Cigarette/Vaping Use Never Used 11/02/22 08:47 PHQ-9: PHQ-9 Score PHQ-9: Total score 0 11/02/22 08:47 Depression Screening Interpretation: Negative Thrive Assessment: Date of Thrive Assessment Date Thrive assessed 11/02/22 11/02/22 08:47 Currently or been in a relationship where the following occur: no concerns reported Const General: no acute distress and alert HENMT Ears: TM's normal bilaterally and EAC's normal Throat: Yes posterior oropharynx normal and Yes tonsils normal (no TP congestion) Neck Neck: Yes no lymphadenopathy and Yes supple Thyroid: Thyroid normal Resp Auscultation: clear to auscultation bilaterally, no rales and no wheezes Cardio Rate: regular rate Rhythm: regular rhythm Heart sounds: no murmurs GI Palpation (GI): Soft to palpation and nontender Auscultation: normal bowel sounds Back/Spine/Pelvis Thoracic/Lumbar Spine: paraspinal muscle tenderness on the left in the mid lumbar and in the lower lumbar and No lumbar spinal tenderness Extrem Other: (+) bilateral shoulder and elbow tenderness but with normal ROM of both shoulders and elbows; (+) tenderness with mild swelling noted in both hands - is unable to completely close hands/make a fist due to the mild swelling present in the hands and fingers Assessment and Plan Assessment & Plan (1) Arthralgia: Code(s): M25.50 - Pain in unspecified joint Qualifiers: Joint pain location: unspecified Qualified Code(s): M25.50 - Pain in unspecified joint Plan: Involving multiple joints, including right knee, shoulders, elbows, hands and lower back, which he states have been going on for a few months now Relates (+) Hx of RA (mother) and he is concerned that he may also have RA or some other inflammatory joint disease Will send him for labs MARINA to evaluate for the possibility of inflammatory joint disease or other related CTDs (2) Bilateral hand pain: Code(s): M79.641 - Pain in right hand; M79.642 - Pain in left hand Plan: Will send him for x-rays of both hands as well as some labs MARINA for further evaluation (3) Bilateral hand swelling: Code(s): M79.89 - Other specified soft tissue disorders Plan: Will send him for some labs MARINA for further evaluation (4) Myalgia: Code(s): M79.10 - Myalgia, unspecified site Plan: Will check serum CPK and LDH, among other labs, to screen for possible inflammatory myopathy (5) Skin lesion of face: Code(s): L98.9 - Disorder of the skin and subcutaneous tissue, unspecified Plan: Will refer to dermatology for further evaluation and management of the hyperpigmented lesions on his face (6) Diabetes mellitus type 2, controlled: Code(s): E11.9 - Type 2 diabetes mellitus without complications Qualifiers: Diabetes mellitus computer terminal operator insulin use: without fci use Diabetes mellitus complication status: without complication Qualified Code(s): E11.9 - Type 2 diabetes mellitus without complications Plan: In-office HgbA1c was normal at 5.6% when last checked last year (June 2021) Reinforced diabetic diet Patient has not required any Rx for diabetes since his bariatric surgery (7) Vitamin D deficiency: Code(s): E55.9 - Vitamin D deficiency, unspecified Plan: Continue Vitamin D3 2000 units QD (8) Status post gastric bypass for obesity: Code(s): Z98.84 - Bariatric surgery status Plan: Continue Pantoprazole 40 mg QD; was on Ursodiol 300 mg BID in the past but he stopped taking this sometime last year Continue Multivitamins and Vitamin B complex daily as well (9) Obesity (BMI 30-39.9): Code(s): E66.9 - Obesity, unspecified Plan: Reinforced diet/exercise as tolerated/lose weight Plan To return as scheduled in a couple of weeks for his next annual physical examination Orders: Orders XR knee RT 4V Today M25.561 - Pain in right knee XR hand LT min 3V Today M79.641 - Pain in right hand, M79.642 - Pain in left hand, M79.89 - Other specified soft tissue disorders XR hand RT min 3V Today M79.641 - Pain in right hand, M79.642 - Pain in left hand, M79.89 - Other specified soft tissue disorders Vitamin B12 and Folate Today E53.8 - Deficiency of other specified B group vitamins, M25.50 - Pain in unspecified joint C Reactive Protein Today M25.50 - Pain in unspecified joint Rheumatoid Factor Today M25.50 - Pain in unspecified joint TSH reflex Free T4 Today E78.00 - Pure hypercholesterolemia, unspecified, M25.50 - Pain in unspecified joint Uric Acid Today M10.9 - Gout, unspecified, M25.50 - Pain in unspecified joint Vitamin D 25-OH Total Today E55.9 - Vitamin D deficiency, unspecified, M25.50 - Pain in unspecified joint Complete Blood Count Auto Diff Today I10 - Essential (primary) hypertension, M25.50 - Pain in unspecified joint Erythrocyte Sedimentation Rate Today M25.50 - Pain in unspecified joint, M79.7 - Fibromyalgia CHAZ Reflex Titer and Pattern Today M25.50 - Pain in unspecified joint CK, Total+Isoenzymes, Serum Today M79.10 - Myalgia, unspecified site Lactate Dehydrogenase Today E83.52 - Hypercalcemia, M79.10 - Myalgia, unspecified site Comprehensive [place]. Panel Fast Today E78.00 - Pure hypercholesterolemia, unspecified Lipid Panel Today E78.00 - Pure hypercholesterolemia, unspecified Referrals Dermatology Referral L98.9 - Disorder of the skin and subcutaneous tissue, u nspecified Medications: Refilled ibuprofen Take with food 800 mg PO Q8H PRN 90 tabs 1RF pain 30 days Coding Level of Care Code Est Pt Level 4 (55028) Diagnoses Arthralgia M25.50 Joint pain location: unspecified Bilateral hand pain M79.641; M79.642 Bilateral hand swelling M79.89 Myalgia M79.10 Skin lesion of face L98.9 Diabetes mellitus type 2, controlled E11.9 Diabetes mellitus computer terminal operator insulin use: without computer terminal operator use Diabetes mellitus complication status: without complication Vitamin D deficiency E55.9 Status post gastric bypass for obesity Z98.84 Obesity (BMI 30-39.9) E66.9
== END 2022-11-02 09:24 | disposition home or self-care (01) ==
PROVIDERS: PCP Internal Medicine; Visit Provider Internal Medicine
DX: E11.9 Type 2 diabetes mellitus without complications (principal); E55.9 Vitamin D deficiency, unspecified; Z98.84 Bariatric surgery status; M25.50 Pain in unspecified joint; M79.641 Pain in right hand; M79.642 Pain in left hand; L98.9 Disorder of the skin and subcutaneous tissue, unspecified; M79.89 Other specified soft tissue disorders; M79.10 Myalgia, unspecified site; E66.9 Obesity, unspecified
CPT/HCPCS: 99214

== ENCOUNTER 2022-11-02 09:28 | Outpatient (REF) | payer OTHER, SELFPAY ==
--- NOTE | ~2022-11-02 | XR_ITS ---
EXAMINATION: XR HAND, LEFT XR HAND, RIGHT XR KNEE, RIGHT CLINICAL INFORMATION: Pain in bilateral hands. Right knee pain. COMPARISON: None available. TECHNIQUE: PA, lateral, and oblique views of the bilateral hands. 4 views of the right knee. FINDINGS: LEFT HAND: 6 mm lucency in the distal shaft of the 4th metacarpal. Mild degenerative changes with hypertrophic change at the 1st carpometacarpal and metacarpophalangeal joints. Alignment is preserved. No displaced fracture. RIGHT HAND: Mild degenerative changes with hypertrophic change at the 1st carpometacarpal and metacarpophalangeal joints. Alignment is preserved. No displaced fracture. RIGHT KNEE: Trace joint effusion. Small calcifications in the soft tissues anterior to the mid to inferior aspect of the patella. Mild medial joint space narrowing. Tiny tricompartmental osteophytes. Small calcifications projecting over the proximal tibia, possibly bone islands or soft tissue calcifications. XR/XR hand RT min 3V IMPRESSION: 1. RIGHT KNEE: Trace joint effusion. Mild degenerative changes with soft tissue calcifications. 2. RIGHT HAND: Mild degenerative changes. 3. LEFT HAND: Mild degenerative changes. No displaced fracture. Recommend follow up imaging in 10-14 days if fracture is suspected.
--- NOTE | ~2022-11-02 | XR_ITS ---
EXAMINATION: XR HAND, LEFT CLINICAL INFORMATION: Pain in bilateral hands COMPARISON: None available. TECHNIQUE: PA, lateral, and oblique views of the left hand. FINDINGS: 6 mm lucency in the distal shaft of the fourth metacarpal. Mild degenerative changes with hypertrophic change at the first carpometacarpal and metacarpophalangeal joints. Alignment is preserved. No displaced fracture. XR/XR hand LT min 3V IMPRESSION: Mild degenerative changes. No displaced fracture. Recommend follow-up imaging in 10-14 days if fracture is suspected.
--- NOTE | ~2022-11-02 | XR_ITS ---
EXAMINATION: XR HAND, LEFT XR HAND, RIGHT XR KNEE, RIGHT CLINICAL INFORMATION: Pain in bilateral hands. Right knee pain. COMPARISON: None available. TECHNIQUE: PA, lateral, and oblique views of the bilateral hands. 4 views of the right knee. FINDINGS: LEFT HAND: 6 mm lucency in the distal shaft of the 4th metacarpal. Mild degenerative changes with hypertrophic change at the 1st carpometacarpal and metacarpophalangeal joints. Alignment is preserved. No displaced fracture. RIGHT HAND: Mild degenerative changes with hypertrophic change at the 1st carpometacarpal and metacarpophalangeal joints. Alignment is preserved. No displaced fracture. RIGHT KNEE: Trace joint effusion. Small calcifications in the soft tissues anterior to the mid to inferior aspect of the patella. Mild medial joint space narrowing. Tiny tricompartmental osteophytes. Small calcifications projecting over the proximal tibia, possibly bone islands or soft tissue calcifications. XR/XR knee RT 4V IMPRESSION: 1. RIGHT KNEE: Trace joint effusion. Mild degenerative changes with soft tissue calcifications. 2. RIGHT HAND: Mild degenerative changes. 3. LEFT HAND: Mild degenerative changes. No displaced fracture. Recommend follow up imaging in 10-14 days if fracture is suspected.
[2022-11-02 09:53] LABS: MANUAL DIFF FLAG NO
[2022-11-02 10:18] LABS: Basophils Percent Auto 0.6 % (0-2); Eosinophils Absolute Auto 0.2 X10*3/uL (0.0-0.4); Eosinophils Percent Auto 2.4 % (0-4); Hematocrit 43.2 % (42.0-52.0); Hemoglobin 14.1 g/dl (14.0-18.0); Imm Gran Abs Auto 0.04 X10*3/uL (0.00-0.03); Imm Gran Pct Auto 0.6 % (0.0-0.4); Lymphocytes Absolute Auto 2.2 X10*3/uL (1.2-4.9); Mean Corpuscular HGB Conc 32.6 g/dl (31.0-36.0); Mean Corpuscular Hemoglobin 27.5 pg (27.0-33.0); Mean Corpuscular Volume 84.2 fL (80.0-98.0); Monocytes Absolute Auto 0.5 X10*3/uL (0.1-1.2); Monocytes Percent Auto 6.8 % (2-11); Neutrophils Absolute Auto 3.8 x10*3/uL (2.0-8.3); Neutrophils Percent Auto 56.6 % (45-73); Platelet Count 232 X10*3/uL (160-400); Red Blood Count 5.13 X10*6/uL (4.60-5.80); Red Cell Distribution Width 13.4 % (11.0-16.0); White Blood Count 6.7 X10*3/uL (4.8-10.8)
[2022-11-02 11:03] LABS: Alanine Aminotransferase 35 U/L (0-40); Albumin Level 4.1 g/dL (3.5-5.0); Alkaline Phosphatase 91 U/L (39-117); Anion Gap 11 (12-20); Aspartate Amino Transferase 28 U/L (5-37); Bilirubin Total 0.4 mg/dL (0.0-1.0); Blood Urea Nitrogen 14 mg/dL (9-16); C Reactive Protein 0.53 mg/dL (< or = 0.50); Calcium 8.8 mg/dL (8.4-10.2); Carbon Dioxide 27 mmol/L (22-29); Chloride 107 mmol/L (96-108); Cholesterol 132 mg/dL (<200); Estimated Glomerular Filt Rate > 60; Glucose Fasting 111 mg/dL (60-99); HDL Cholesterol 30 mg/dL (>40); LDL Cholesterol Calculated 69 mg/dL (<100); Lactate Dehydrogenase 146 U/L (118-273); Potassium 4.2 mmol/L (3.3-5.1); Sodium 141 mmol/L (135-145); Total Protein 7.2 g/dL (6.5-8.0); Triglycerides 166 mg/dL (<150); Uric Acid 6.2 mg/dL (3.4-7.0)
[2022-11-02 11:10] LABS: Erythrocyte Sedimentation Rate 10 MM/HR (0-15); Rheumatoid Factor < 13.0 IU/mL (<15.0)
[2022-11-02 11:18] LABS: TSH reflex Free T4 1.05 uIU/mL (0.32-4.0); Vitamin D 25-OH Total 13.5 ng/mL (>30)
[2022-11-02 11:27] LABS: Estimated Average Glucose 117 mg/dL; Hemoglobin A1c % 5.7 % (<6.0)
[2022-11-02 11:31] LABS: Folate 4.3 ng/mL (> or = 4.0); Vitamin B12 644 pg/mL (200-900)
[2022-11-04 13:52] LABS: Anti Nuclear Antibody Screen NEGATIVE (NEGATIVE)
[2022-11-06 20:14] LABS: CK-BB None Detected (None Detected); CK-MB 0 % (<5); CK-MM 100 % (95-100); Creatine Kinase,Total,Serum 99 U/L (44-196)
== END 2022-11-02 09:29 | disposition home or self-care (01) ==
LOC: HO.XRAY 09:28
PROVIDERS: PCP Internal Medicine; Visit Provider Internal Medicine
DX: Z00.00 Encounter for general adult medical examination without abnormal findings (principal); E55.9 Vitamin D deficiency, unspecified; M25.50 Pain in unspecified joint; E53.8 Deficiency of other specified B group vitamins; E78.00 Pure hypercholesterolemia, unspecified; E83.52 Hypercalcemia; E11.9 Type 2 diabetes mellitus without complications; M79.7 Fibromyalgia; M10.9 Gout, unspecified; M25.561 Pain in right knee; M79.641 Pain in right hand; M79.642 Pain in left hand; M79.89 Other specified soft tissue disorders; I10 Essential (primary) hypertension; E66.9 Obesity, unspecified
CPT/HCPCS: 36415; 73130; 73564; 80053; 80061; 82306; 82552; 82607; 82746; 83036; 83615; 84443; 84550; 85025; 85652; 86038; 86140; 86431

== ENCOUNTER 2022-11-12 09:57 | Outpatient (AMB) | payer OTHER, SELFPAY ==
[2022-11-12 09:58] VITALS: BP 124/78; PULSE 65; O2SAT 96; BMI 42.3
--- NOTE | 2022-11-12 09:58 | MHC.PC.OV ---
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: No Accompanied by: Self / Same As Patient Allergies No Known Allergies Allergy (Verified 11/12/22 10:24) Medication List - Last Reconciled 11/12/22 by Rajan Clark MD blood sugar diagnostic As directed cholecalciferol (vitamin D3) 50 mcg PO DAILY 90 days ibuprofen 800 mg PO Q8H PRN 30 days multivitamin 1 tab PO DAILY oxycodone 5 mg PO Q6H PRN Tobacco use date assessed: 11/12/22 Dental Screening Dental Screen Date: 11/12/22 Did you have a dental visit in the last 12 months?: No Did you have a dental problem in the last 6 months where you did not have access to dental care?: No Was dental information given to patient?: Patient has dentist HPI Annual Exam HPI Details Patient comes in today for his annual physical examination States that he feels okay Still has frequent joint pains, especially in both hands and in his right knee, and would like to know how his x-rays and his tests for lupus came out Is also still experiencing recurrent numbness and tingling sensation in both lower extremities often Was sent for repeat NCV and EMG last year but patient does not recall if these were ever done He denies any headaches or dizziness Denies any chest pains, no SOB No nausea/vomiting, no abdominal pain No change in bowel habits noted He denies any acute urinary symptoms Adds that he had LASIK surgery done in [place] about 3 months ago and he now no longer has to use any corrective eyeglasses He is scheduled now to be seen by dermatology for the lesions on his face next month but states that he was never scheduled for the lesions on his lower legs when he was referred for them earlier this year Was also never contacted or scheduled to see plastic surgery when he was referred out to them a year ago for his excess abdominal skin folds Had his follow up labs done last week - to discuss his results [facility] Medical History (Updated 11/13/22 @ 06:20 by Rajan Clark MD) Morbid obesity with BMI of 40.0-44.9, adult Cholecystitis Obesity (BMI 30-39.9) Vitamin D deficiency Frequent loose stools Diarrhea due to malabsorption Surgical History History of laparoscopic cholecystectomy (03/19/22) History of gastric bypass (~04/05/20) Status post laparoscopic sleeve gastrectomy Status post gastric bypass for obesity Family History Mother Arthritis Father Parkinsons Social History Household Members: Spouse and Children Housing: House Do you presently have visiting nurse or other home services: No Alcohol intake: unknown Patient Tobacco Use Status: Never used Tobacco e-Cigarette/Vaping Use: Never Used Second Hand Smoke Exposure: No service: No Current occupational status: unemployed Cognitive needs: No Hearing needs: No Vision needs: Yes Questionnaire PHQ-9 Over the last 2 weeks, how often have you been bothered by any of the following problems? 1. Little interest or pleasure in doing things: not at all 2. Feeling down, depressed, or hopeless: not at all 3. Trouble falling or staying asleep, or sleeping too much: not at all 4. Feeling tired or having little energy: not at all 5. Poor appetite or overeating: not at all 6. Feeling bad about yourself - or that you are a failure or have let yourself or your family down: not at all 7. Trouble concentrating on things, such as reading the newspaper or watching television: not at all 8. Moving or speaking so slowly that other people could have noticed. Or the opposite - being so fidgety or restless that you have been moving around a lot more than usual: not at all 9. Thoughts that you would be better off or of hurting yourself in some way: not at all Total score: 0 Depression Screening Interpretation: Negative 20214 - PHQ-9 Billing: Yes Source: Developed by Drs. Yosef Johnson, Christiana Yepez, Salinas Morgan and colleagues, with an educational caren from [employer]. Thrive Questionnaire Date Thrive assessed: 11/12/22 I am a: Patient What is your living situation today?: I have a steady place to live Within the past 12 months, did the food you bought not last and you didn't have the money to get more?: Never true Within the past 12 months, did you worry whether your food would run out before you got money to buy more?: Never true Do you have trouble paying for medicines?: No Do you have trouble getting transportation to medical appointments?: No Do you have trouble paying your heating and electricity bill?: No Do you have trouble taking care of your child, family member or friend?: No Do you have trouble with day-to-day activities such as bathing, preparing meals, shopping, managing finances, etc.?: No Are you currently unemployed and looking for a job?: No Are you interested in more education?: No Please select the resources that you would like help with: None Currently or been in a relationship where the following occur: no concerns reported AUDIT C Alcohol Use Questionnaire (AUDIT-C) 1. How often do you have a drink containing alcohol?: Monthly or less 2. How many drinks containing alcohol do you have on a typical day when you are drinking?: 1 or 2 3. How often do you have six or more drinks on one occasion?: Less than monthly Total Score: 2 Score Reviewed/Action Taken: Yes TODD-7 AMB Questionnaire TODD-7 Date TODD - 7 assessed: 11/12/22 Feeling nervous, anxious, or on edge: 0 = Not at all Not being able to stop or control worryin = Not at all Worrying too much about different things: 0 = Not at all Trouble relaxin = Not at all Being so restless that it is hard to sit still: 0 = Not at all Becoming easily annoyed or irritable: 0 = Not at all Feeling afraid as if something awful might happen: 0 = Not at all Total TODD-7 score (0-4 normal; 5-9 mild; 10-14 moderate; 15-21 severe): 0 Source: Developed by Drs. Yosef Johnson, Christiana Yepez, Salinas Morgan and colleagues, with an educational caren from [employer]. Review of Systems Const Reports difficulty sleeping (at times lately due to joint pains), Denies fatigue, Denies headache(s), Reports malaise and Denies weakness Eyes Denies blurry vision, Denies change in vision, Denies irritation and Denies itchy eyes ENT Denies dysphagia, Denies dizziness, Denies headache(s), Denies neck pain and Denies odynophagia Card Denies chest pain, Denies rapid heart rate, Denies irregular heart rhythm, Denies palpitations and Denies dyspnea Resp Denies chest congestion, Denies cough, Denies dyspnea and Denies wheezing GI Denies abdominal pain, Denies bloating, Denies constipation, Denies dysphagia, Denies heartburn, Denies diarrhea, Denies nausea, Denies odynophagia and Denies vomiting Denies hematuria, Denies difficulty urinating, Denies dysuria, Denies urinary frequency and Denies urinary urgency Musc Reports back pain (over the left lower back), Reports arthralgias (involving multiple joints - see HPI), Reports joint swelling (on and off, especially in both hands) and Denies neck pain Skin/Breast Details: (+) cysts over the lower legs bilaterally Denies change in pigmentation, Reports lesions ((+) multiple hyperpigmented lesions on the face) and Denies unusual bruising Neuro Denies dizziness, Denies headache(s), Reports paresthesias (over both lower extremities) and Denies weakness Endo Denies fatigue and Denies palpitations Aller/Immun Denies itchy eyes and Denies wheezing Physical exam (Primary Care) Vital Signs: Last Vital Signs Pulse 65 11/12/22 09:58 BP 124/78 11/12/22 09:58 Pulse Ox 96 11/12/22 09:58 Oxygen Delivery Method Room Air 11/12/22 09:58 BMI result Body Mass Index 42.3 Tobacco/Smoking Status: Tobacco use Status Tobacco use date assessed 11/12/22 11/12/22 10:02 Patient Tobacco Use Status Never used Tobacco 11/12/22 10:02 e-Cigarette/Vaping Use Never Used 11/12/22 10:02 PHQ-9: PHQ-9 Score PHQ-9: Total score 0 11/12/22 10:29 Depression Screening Interpretation: Negative Thrive Assessment: Date of Thrive Assessment Date Thrive assessed 11/12/22 11/12/22 10:02 Currently or been in a relationship where the following occur: no concerns reported Const General: no acute distress and alert Orientation/consciousness: patient oriented x3 HENMT Head: Yes normocephalic and Yes atraumatic Ears: TM's normal bilaterally and EAC's normal General nose exam: No nasal discharge present Face and sinus: Yes normal facial exam and Yes sinuses nontender Teeth and gingiva: dentition normal Throat: Yes posterior oropharynx normal and Yes tonsils normal (no TP congestion) Eyes Eyelids: Yes eyelids normal Conjunctivae: conjunctivae normal Pupils: Equal, round and reactive pupils present EOM: EOMs intact bilaterally Neck Neck: Yes no lymphadenopathy and Yes supple Thyroid: Thyroid normal Resp Auscultation: clear to auscultation bilaterally, no rales and no wheezes Cardio Rate: regular rate Rhythm: regular rhythm Heart sounds: no murmurs GI Palpation (GI): Soft to palpation, nontender and No hepatosplenomegaly present Auscultation: normal bowel sounds General: Yes no CVA tenderness Back/Spine/Pelvis Back: no CVA tenderness Thoracic/Lumbar Spine: paraspinal muscle tenderness on the left in the mid lumbar and in the lower lumbar and No lumbar spinal tenderness Skin Lesions: no lesions Rashes: no rashes Neuro General: patient oriented x3, moves all extremities, no focal motor deficits and CN's II-XI intact bilaterally Cranial nerves: Yes Equal, round and reactive pupils present Cognition (Neuro): normal cognition Gait exam (Neuro): Normal gait present Extrem Other: (+) bilateral shoulder and elbow tenderness but with normal ROM of both shoulders and elbows; (+) tenderness with mild swelling noted in both hands - is unable to completely close hands/make a fist due to the mild swelling present in the hands and fingers General: Yes no clubbing, cyanosis or edema Assessment and Plan Assessment & Plan (1) Annual physical exam: Code(s): Z00.00 - Encounter for general adult medical examination without abnormal findings Plan: Results of his labs done a couple of weeks ago reviewed and discussed with patient (2) Diabetes mellitus type 2, controlled: Code(s): E11.9 - Type 2 diabetes mellitus without complications Qualifiers: Diabetes mellitus alf insulin use: without technician terminal and repeater use Diabetes mellitus complication status: without complication Qualified Code(s): E11.9 - Type 2 diabetes mellitus without complications Plan: His HgbA1c remains normal at 5.7% on his labs done a couple of weeks ago; in-office HgbA1c was also normal at 5.6% when previously checked last year (June 2021) Reinforced diabetic diet Patient has not required any Rx for diabetes since his bariatric surgery (3) Paresthesia of both lower extremities: Code(s): R20.2 - Paresthesia of skin Plan: Will send patient again for EMG and NCV of the lower extremities for further evaluation This was ordered last year but patient apparently never got this done or scheduled (4) Arthralgia: Code(s): M25.50 - Pain in unspecified joint Qualifiers: Joint pain location: unspecified Qualified Code(s): M25.50 - Pain in unspecified joint Plan: Involving multiple joints, including right knee, shoulders, elbows, hands and lower back, which he states have been going on for a few months now Relates (+) Hx of RA (mother) and he is concerned that he may also have RA or some other inflammatory joint disease He was sent for labs to evaluate him for possible inflammatory joint disease or other related CTDs - have reassured him that his tests have all come back negative and that his joint pains are most likely due to osteoarthritis and tendinitis/bursitis and are likely related to the work that he does at his current job Advised that these can be managed conservatively with NSAIDs like ibuprofen as needed and also with physical therapy when appropriate (5) Bilateral hand pain: Code(s): M79.641 - Pain in right hand; M79.642 - Pain in left hand Plan: Reassured that his hand x-rays done recently have come back negative and that his hand symptoms are most likely due to osteoarthritis /overuse injury (6) Skin lesion of face: Code(s): L98.9 - Disorder of the skin and subcutaneous tissue, unspecified Plan: He was referred to dermatology for further evaluation and management of the hyperpigmented lesions on his face and is now scheduled to be seen sometime next month (7) Cutaneous cyst: Code(s): L72.9 - Follicular cyst of the skin and subcutaneous tissue, unspecified Plan: He was referred to dermatology previously for 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 but states that he has not received any call back regarding this As he will be seeing dermatology next month for a separate issues, will print out his previous referral for this and he is advised to bring this with him when he goes to see dermatology next month and hopefully they can see him for both issues at the same time (8) Vitamin D deficiency: Code(s): E55.9 - Vitamin D deficiency, unspecified Plan: Continue Vitamin D3 2000 units QD (9) Status post gastric bypass for obesity: Code(s): Z98.84 - Bariatric surgery status Plan: Continue Pantoprazole 40 mg QD; was on Ursodiol 300 mg BID in the past but he stopped taking this sometime last year Continue Multivitamins and Vitamin B complex daily as well (10) Panniculus: Code(s): E65 - Localized adiposity Plan: Is most likely the source of his recurrent diffuse pains over his chest wall, abdominal wall and back Per request, he was referred to plastic surgery (Dr. Amy Encinas) for consideration for panniculectomy to help relieve his symptoms but he has not yet heard back from them so far about an appointment scheduled Will redo referral (11) Morbid obesity with BMI of 40.0-44.9, adult: Code(s): E66.01 - Morbid (severe) obesity due to excess calories; Z68.41 - Body mass index [BMI] 40.0-44.9, adult Plan: Reinforced diet/exercise as tolerated/lose weight Plan Follow up in 4 months Orders: Orders NE nerve conduction velocity 11/12/22 R20.2 - Paresthesia of skin NE electromyogram (EMG) 11/12/22 R20.2 - Paresthesia of skin Referrals Plastic Surgery Referral E65 - Localized adiposity, Z98.84 - Bariatric surgery status Coding Level of Care Code Est Pt Prev Care 18-39y([id number]) Diagnoses Annual physical exam Z00.00 Controlled type 2 diabetes mellitus without complication, without long-term current use of insulin E11.9 Diabetes mellitus technician terminal and repeater insulin use: without technician terminal and repeater use Diabetes mellitus complication status: without complication Paresthesia of both lower extremities R20.2 Arthralgia, unspecified joint M25.50 Joint pain location: unspecified Bilateral hand pain M79.641; M79.642 Skin lesion of face L98.9 Cutaneous cyst L72.9 Vitamin D deficiency E55.9 Status post gastric bypass for obesity Z98.84 Panniculus E65 Morbid obesity with BMI of 40.0-44.9, adult E66.01; Z68.41
== END 2022-11-12 10:50 | disposition home or self-care (01) ==
PROVIDERS: PCP Internal Medicine; Visit Provider Internal Medicine
DX: Z00.00 Encounter for general adult medical examination without abnormal findings (principal); E11.9 Type 2 diabetes mellitus without complications; E55.9 Vitamin D deficiency, unspecified; Z98.84 Bariatric surgery status; E66.01 Morbid (severe) obesity due to excess calories; Z68.41 Body mass index [BMI] 40.0-44.9, adult; R20.2 Paresthesia of skin; M79.641 Pain in right hand; M79.642 Pain in left hand; L98.9 Disorder of the skin and subcutaneous tissue, unspecified; L72.9 Follicular cyst of the skin and subcutaneous tissue, unspecified
CPT/HCPCS: 99395

== ENCOUNTER 2022-11-18 13:17 | Inpatient (IN) | payer OTHER, SELFPAY ==
--- NOTE | ~2022-11-18 | CT_ITS ---
EXAMINATION: CT ABDOMEN AND PELVIS WITH CONTRAST CLINICAL INFORMATION: Acute hepatitis. Portal vein thrombosis. COMPARISON: Previous abdominal ultrasound from earlier the same day and previous CT March 2022 TECHNIQUE: Multidetector volumetric images were obtained from the superior aspect of the liver through the pubic symphysis following administration 85 mL of Omnipaque 350 intravenous contrast. Sagittal and coronal reformatted images were obtained on the technologist's workstation. Oral contrast: Yes This CT examination was performed using dose optimization techniques as appropriate, variously including the following: *Automated exposure control *Adjustment of mA and/or kV according to patient size (this includes techniques or standardized protocols for targeted exams where dose is matched to indication/reason for exam; i.e. extremities or head) *Use of iterative reconstruction technique DLP: 1029 mGy-cm FINDINGS: LUNG BASES: The visualized lung bases are unremarkable. LIVER, GALLBLADDER, AND BILIARY TREE: The liver is normal in size and shape. The liver slightly low in attenuation suggestive of mild fatty infiltration. No focal hepatic lesion or biliary ductal dilatation is present. The gallbladder has been removed. There is some mild fat stranding seen in the gallbladder fossa adjacent to the surgical clips. No fluid collection. The hepatic veins and portal veins are patent. No ascites. PANCREAS: Unremarkable. SPLEEN: Unremarkable. ADRENAL GLANDS: Unremarkable. KIDNEYS AND URETERS: The kidneys are normal in size, shape, and attenuation. No hydronephrosis,. Small stone in the lower pole of the left kidney. No perinephric stranding. BLADDER: Unremarkable. GASTROINTESTINAL TRACT: The small and large bowel are unremarkable. The appendix is unremarkable. Postsurgical changes to the stomach, probably gastric sleeve. ABDOMINAL WALL: No significant hernia is appreciated. LYMPH NODES: Small retroperitoneal and periportal lymph nodes. No enlarged lymph nodes. VASCULAR: Unremarkable. The hepatic portal veins are patent. PELVIC VISCERA: Unremarkable. OSSEOUS STRUCTURES: Unremarkable. CT/CT abdomen pelvis w IV con IMPRESSION: Mild fatty infiltration of the liver. Postcholecystectomy. Mild fat stranding gallbladder fossa. No fluid collection seen. No biliary duct dilatation. Patent hepatic and portal veins. Small left renal stone. Fleischner guidelines were followed.
--- NOTE | ~2022-11-18 | XR_ITS ---
EXAMINATION: XR CHEST CLINICAL INFORMATION: Shortness of breath COMPARISON: 04/27/2017 TECHNIQUE: Frontal view of the chest was obtained. FINDINGS: No significant abnormality is noted involving the heart, lungs, mediastinum, bony thorax or soft tissues. XR/XR chest 1V IMPRESSION: Unremarkable examination.
--- NOTE | ~2022-11-18 | US_ITS ---
EXAMINATION: US ABDOMEN LIMITED CLINICAL INFORMATION: Right upper quadrant pain for 5 minutes. Question retained bile duct stone.. COMPARISON: CT abdomen and pelvis 03/18/2022. TECHNIQUE: Real-time imaging of the right upper quadrant abdominal viscera. FINDINGS: PANCREAS: Normal. LIVER: liver is normal in size. The liver contour is normal. Parenchymal echogenicity is diffusely increased. No focal hepatic lesion. There is no intrahepatic biliary duct dilatation seen. GALLBLADDER: The gallbladder has been surgically removed. COMMON BILE DUCT: Normal in caliber measuring 0.8 cm in diameter. There is no echogenic stones seen. RIGHT KIDNEY: Normal. No hydronephrosis. No renal calculi or focal parenchymal lesions. The kidney measures 13.0 cm in maximum dimension. FREE FLUID: None. US/US abdomen limited IMPRESSION: 1. Diffusely echogenic liver without focal lesion. 2. The gallbladder has been surgically removed. 3. Visualized pancreas, CBD and right kidney is unremarkable.
--- NOTE | ~2022-11-18 | MR_ITS ---
EXAMINATION: MR ABDOMEN WITHOUT CONTRAST CLINICAL INFORMATION: Elevated liver function tests and abdominal pain COMPARISON: Previous abdominal ultrasound and CT of the abdomen and pelvis 11/18/2022 TECHNIQUE: MR abdomen is performed without gadolinium contrast. MRCP sequences were also performed. FINDINGS: LUNG BASES: The visualized lung bases are unremarkable. LIVER, GALLBLADDER, AND BILIARY TREE: The liver is normal in size and shape. There is mild signal loss in the liver seen on out of phase sequences suggestive of fatty infiltration. No focal liver lesion. The gallbladder has been removed. No fluid collection is seen in the gallbladder fossa. There is no intra or extrahepatic biliary duct dilatation. Unfortunately MRCP sequences are limited due to motion. No common bile duct stone is seen. There is low insertion of the cystic duct. The common bile duct measures 4 mm. PANCREAS: Unremarkable. SPLEEN: Upper normal in size measuring 13 cm in length. The spleen is otherwise normal. ADRENAL GLANDS: Unremarkable. KIDNEYS AND URETERS: The kidneys are normal in size and shape. No hydronephrosis. No perinephric stranding. GASTROINTESTINAL TRACT: Postsurgical changes to the stomach. No bowel obstruction. No ascites or fluid collection. ABDOMINAL WALL: No significant hernia is appreciated. LYMPH NODES: Small periportal and retroperitoneal lymph nodes. No enlarged lymph nodes. No ascites VASCULAR: Unremarkable. OSSEOUS STRUCTURES: Marrow signal normal. MR/MR MRCP IMPRESSION: Limited exam due to motion. Normal caliber intrahepatic and extrahepatic bile ducts. No common bile duct stone seen. Post cholecystectomy. No fluid collection in the gallbladder fossa. Mild fatty infiltration of the liver.
[2022-11-18 13:46] VITALS: BP 104/37; PULSE 82; RESP 19; TEMP 36.6; O2SAT 99; BMI 42.9
--- NOTE | 2022-11-18 13:48 | ECG_ITS ---
Test Reason : pain Blood Pressure : / mmHG Vent. Rate : 079 BPM Atrial Rate : 079 BPM P-R Int : 156 ms QRS Dur : 100 ms QT Int : 396 ms P-R-T Axes : 039 012 017 degrees QTc Int : 454 ms Normal sinus rhythm Normal ECG When compared with ECG of 04-APR-2014 10:50, No significant change was found Referred By: Lj Moran Electronically Signed By:RAFAEL GRAYSON
--- NOTE | 2022-11-18 13:49 | ED_ITS ---
HPI - General Adult General Chief complaint: Abdominal Pain Stated complaint: Severe Upper Abd Pain Radiating To Back Time Seen by Provider: 11/18/22 15:25 Source: patient Mode of arrival: ambulatory Limitations: no limitations History of Present Illness HPI narrative: Patient is 37 years old obese with history of gastric bypass and cholecystectomy comes in for increased pain bilateral flank and upper abdomen area since last night with severe nausea and uncomfort feeling no fever no chills no history of Tylenol intake no alcohol or substance abuse no urinary complaint Related Data Home Medications Medication Instructions Recorded Confirmed blood sugar diagnostic #10 ea 05/03/20 11/12/22 Previous Rx's Medication Instructions Recorded cholecalciferol (vitamin D3) 50 50 mcg PO DAILY 90 days #90 caps 11/11/21 mcg (2,000 unit) capsule ibuprofen 800 mg tablet 800 mg PO Q8H PRN pain 30 days #90 11/02/22 tabs Allergies Allergy/AdvReac Type Severity Reaction Status Date / Time No Known Allergies Allergy Verified 11/18/22 13:45 Review of Systems 2 Review of Systems: Yes all other systems are reviewed and are negative PMF Past Medical History Medical History Morbid obesity with BMI of 40.0-44.9, adult Cholecystitis Obesity (BMI 30-39.9) Vitamin D deficiency Frequent loose stools Diarrhea due to malabsorption Surgical History History of laparoscopic cholecystectomy (03/19/22) History of gastric bypass (~04/05/20) Status post laparoscopic sleeve gastrectomy Status post gastric bypass for obesity Family History Family History Mother Arthritis Father Parkinsons Social History Social History Household Members: Spouse and Children Housing: House Do you presently have visiting nurse or other home services: No Alcohol intake: unknown Patient Tobacco Use Status: Never used Tobacco e-Cigarette/Vaping Use: Never Used Second Hand Smoke Exposure: No service: No Current occupational status: unemployed Cognitive needs: No Hearing needs: No Vision needs: Yes Physical Exam ED Vital Signs: Vital Signs - 24 hr 11/18/22 13:46 11/18/22 17:33 Temperature 98 F 98.2 F Pulse Rate 82 92 Respiratory Rate 19 16 Blood Pressure 104/37 L 124/58 L Pulse Oximetry 99 97 Oxygen Delivery Method Room Air Room Air BMI result Body Mass Index 42.9 Appearance: Alert. Oriented X3. No acute distress. Eyes: PERRLA, No Nystagmus no pallor or icterus ENT: Pharynx normal. Oral Mucosa moist Neck: Normal inspection. Neck supple. CVS: Normal heart rate and rhythm. Pulses normal. Respiratory: No respiratory distress. Equal air entry bilateral, no wheezing/rales/rhonchi Abdomen: Soft , diffuse discomfort in the upper quadrants and bilateral flank area Bowel sounds are present, no mass palpable, no CVA tenderness Skin: Skin warm and dry. Normal skin color. Normal skin turgor. Extremities: No lower extremity edema. No calf tenderness Neuro: Oriented X 3. No motor deficit. No sensory deficit.No cerebellar signs , cranial nerves II-XII intact Course Course Course Narrative: RME- 37-year-old male presents for evaluation of upper abdominal pain. He reports he had a cholecystectomy approximately 5 months ago. Reports severe right upper quadrant abdominal pain with nausea and sweats. Plan for labs, ultrasound to rule out retained bile duct stone and EKG. Medications Administered Discontinued Medications Generic Name Dose Route Start Last Admin Trade Name Freq PRN Reason Stop Dose Admin Sodium Chloride 1,000 mls @ 999 mls/hr 11/18/22 15:56 11/18/22 17:52 Ns IV 11/18/22 16:56 Infused .Q1H1M ONE Infusion Iohexol 100 ml 11/18/22 17:29 11/18/22 17:30 Iohexol 350 Mg/Ml 100 Ml Infus..Btl IV 11/18/22 17:30 100 ml ONCE ONE Administration Ondansetron HCl 4 mg 11/18/22 15:56 11/18/22 16:10 Ondansetron Hcl 4 Mg/2 Ml Vial IVPUSH 11/18/22 15:57 4 mg ONCE ONE Administration Medical Decision Making Medical Decision Making [facility] Narrative: Patient's upper abdomen discomfort etiology not very clear lab workup showed elevated LFT which have increased significantly within last 2 weeks ultrasound is negative will do CT scan to rule out portal vein thrombosis check hepatitis profile CT scan of the abdomen is essentially negative will admit for further evaluation Differential Diagnosis Differential Diagnoses: The differential diagnosis associated with the presentation includes Acute hepatitis/portal vein thrombosis/gastritis/kidney stone/UTI/viral syndrome Admission/Observation Consideration of admission/observation: Escalation of care including admission/observation considered Consult Healthcare Provider Management of the patient was discussed with: Hospitalist Lab Data MDM Lab Attestation statement: I reviewed the patient's lab results. 11/18/22 16:04 11/18/22 16:04 Labs: Lab Results 11/18/22 11/18/22 Range/Units 16:04 17:10 WBC 12.3 H (4.8-10.8) X10*3/uL RBC 5.24 (4.60-5.80) X10*6/uL Hgb 14.4 (14.0-18.0) g/dl Hct 43.3 (42.0-52.0) % MCV 82.6 (80.0-98.0) fL MCH 27.5 (27.0-33.0) pg MCHC 33.3 (31.0-36.0) g/dl RDW 13.4 (11.0-16.0) % Plt Count 230 (160-400) X10*3/uL MPV 9.0 L (9.4-12.4) fL Immature Gran % (Auto) 0.6 H (0.0-0.4) % Neut % (Auto) 86.0 H (45-73) % Lymph % (Auto) 4.7 L (20-40) % [place] % (Auto) 8.4 (2-11) % Eos % (Auto) 0.1 (0-4) % Baso % (Auto) 0.2 (0-2) % Lymph # (Auto) 0.6 L (1.2-4.9) X10*3/uL [place] # (Auto) 1.0 (0.1-1.2) X10*3/uL Eos # (Auto) 0.0 (0.0-0.4) X10*3/uL Baso # (Auto) 0.0 (0.0-0.2) X10*3/uL Abs Immat Gran (auto) 0.07 H (0.00-0.03) X10*3/uL Absolute Neuts (auto) 10.6 H (2.0-8.3) x10*3/uL Absolute Nucleated RBC 0.000 (0.0-0.012) X10*3/uL Nucleated RBC % (auto) 0.0 (0.0-0.2) /100WBC Sodium 139 (135-145) mmol/L Potassium 4.3 (3.3-5.1) mmol/L Chloride 104 (96-108) mmol/L Carbon Dioxide 25 (22-29) mmol/L Anion Gap 14 (12-20) BUN 12 (9-16) mg/dL Creatinine 0.75 (0.5-1.4) mg/dL Estim Creat Clear Calc 172.5 Estimated GFR > 60 Random Glucose 153 H (60-115) mg/dL Calcium 9.2 (8.4-10.2) mg/dL Total Bilirubin 1.7 H (0.0-1.0) mg/dL AST 838 H (5-37) U/L ALT 572 H (0-40) U/L Alkaline Phosphatase 176 H (39-117) U/L Troponin I High Sens < 2.7 (<3.5-35.0) ng/L Total Protein 7.3 (6.5-8.0) g/dL Albumin 4.4 (3.5-5.0) g/dL Lipase 25 (8-78) U/L Urine Color Yellow Urine Appearance Clear Urine pH 6.5 (5.0-9.0) Ur Specific [place] 1.010 (1.005-1.025) Urine Protein Negative (Neg-Trace) mg/dL Urine Glucose (UA) Negative (Negative) mg/dL Urine Ketones 15 (Negative) mg/dL Urine Blood Negative (Negative) Urine Nitrite Negative (Negative) Ur Leukocyte Esterase Negative (Negative) COVID-19 (REMY) Negative (Negative) COVID-19 Clin Com See Note Discharge Plan Discharge Clinical Impression: Acute hepatitis Patient Disposition: Admitted As Inpatient Interventions: Admission Worksheet (ED) Last Done: 11/18/22 20:19 Discharge Date/Time: 11/18/22 20:46
[2022-11-18] MEDS: ondansetron HCL 4 MG/2 ML VIAL IVPUSH (16:10)
[2022-11-18] MEDS: 0.9 % Sodium Chloride 1,000 ML 999 ML IV (16:10)
[2022-11-18 16:13] LABS: MANUAL DIFF FLAG NO
[2022-11-18 16:15] LABS: Basophils Percent Auto 0.2 % (0-2); Eosinophils Percent Auto 0.1 % (0-4); Hematocrit 43.3 % (42.0-52.0); Hemoglobin 14.4 g/dl (14.0-18.0); Imm Gran Abs Auto 0.07 X10*3/uL (0.00-0.03); Imm Gran Pct Auto 0.6 % (0.0-0.4); Lymphocytes Absolute Auto 0.6 X10*3/uL (1.2-4.9); Lymphocytes Percent Auto 4.7 % (20-40); Mean Corpuscular HGB Conc 33.3 g/dl (31.0-36.0); Mean Corpuscular Hemoglobin 27.5 pg (27.0-33.0); Mean Corpuscular Volume 82.6 fL (80.0-98.0); Monocytes Percent Auto 8.4 % (2-11); Neutrophils Absolute Auto 10.6 x10*3/uL (2.0-8.3); Platelet Count 230 X10*3/uL (160-400); Red Blood Count 5.24 X10*6/uL (4.60-5.80); Red Cell Distribution Width 13.4 % (11.0-16.0); White Blood Count 12.3 X10*3/uL (4.8-10.8)
--- NOTE | 2022-11-18 16:20 | PC.NURSE ---
alert and oriented, respirations even and unlabored. iv established, labs drawn/swabbed and sent. medicated per the MAY. call stoll within reach.
[2022-11-18 16:30] LABS: Alanine Aminotransferase 572 U/L (0-40); Albumin Level 4.4 g/dL (3.5-5.0); Alkaline Phosphatase 176 U/L (39-117); Anion Gap 14 (12-20); Aspartate Amino Transferase 838 U/L (5-37); Bilirubin Total 1.7 mg/dL (0.0-1.0); Blood Urea Nitrogen 12 mg/dL (9-16); Calcium 9.2 mg/dL (8.4-10.2); Carbon Dioxide 25 mmol/L (22-29); Chloride 104 mmol/L (96-108); Creatinine Clr Calc Pharmacy 172.5; Estimated Glomerular Filt Rate > 60; Glucose Random 153 mg/dL (60-115); Lipase 25 U/L (8-78); Potassium 4.3 mmol/L (3.3-5.1); Sodium 139 mmol/L (135-145); Total Protein 7.3 g/dL (6.5-8.0)
[2022-11-18 16:38] LABS: Troponin-I High Sensitivity < 2.7 ng/L (<3.5-35.0)
[2022-11-18 16:44] LABS: COVID-19 Test Negative (Negative); IDNOW Serial# 08D9AD1C
[2022-11-18 17:17] LABS: Appearance Urine Clear; Color Urine Yellow; Glucose Urine UA Negative (Negative); Leukocyte Esterase Urine Negative (Negative); Nitrite Urine Negative (Negative); PH 6.5 (5.0-9.0); Urine Blood Negative (Negative); Urine Ketones 15 mg/dL (Negative); Urine Protein Negative (Neg-Trace)
[2022-11-18] MEDS: iohexoL 350 MG/ML 100 ML INFUS..BTL IV (17:30)
[2022-11-18 17:33] VITALS: BP 124/58; PULSE 92; RESP 16; TEMP 36.8; O2SAT 97
--- NOTE | 2022-11-18 19:43 | P.HPHOSP_ITS ---
History of Present Illness Date of Service: 11/18/22 Chief Complaint: Abdominal Pain This is a 37-year-old male with history of fatty liver disease, cholecystectomy, gastric bypass surgery, currently not on any prescription medications who presents to the emergency department for evaluation of abdominal pain. Patient states that started 1 day prior to presentation. Initially it was intermittent and progressed to being constant. It is located in the bilateral flanks and right upper quadrant region. Patient states it feels similar to his pain due to gallbladder. Also has associated fatigability and nausea. No diarrhea. Admits chills but no fever. Admits to eating [employer] chicken 2 days prior to presentation and drank coffee at work. No IV drug use. Sexually active with 1 female partner. No history of hepatitis virus or STDs. Patient states he had lab work about 15 days prior to presentation which were normal. Denies Tylenol use. No chest discomfort, palpitations, shortness of breath, changes in urinary habits. Does endorse occasional alcohol use In the emergency department, AST and ALT found to be significantly elevated. Review of Systems 2 Constitutional: Constitutional: Reports chills, Reports fatigue and Reports lethargy Cardiovascular: Cardiovascular: Reports no additional cardiovascular complaints Respiratory: Respiratory: Reports no additional respiratory complaints Gastrointestinal: Gastrointestinal: Reports abdominal pain and Reports nausea Genitourinary: Genitourinary: Reports no additional male genitourinary complaints Endocrine: Endocrine: Reports fatigue [facility] Medical History Morbid obesity with BMI of 40.0-44.9, adult Cholecystitis Obesity (BMI 30-39.9) Vitamin D deficiency Frequent loose stools Diarrhea due to malabsorption Family History Mother Arthritis Father Parkinsons Surgical History History of laparoscopic cholecystectomy (03/19/22) History of gastric bypass (~04/05/20) Status post laparoscopic sleeve gastrectomy Status post gastric bypass for obesity Social History Household Members: Spouse and Children Housing: House Do you presently have visiting nurse or other home services: No Alcohol intake: unknown Patient Tobacco Use Status: Never used Tobacco e-Cigarette/Vaping Use: Never Used Second Hand Smoke Exposure: No Advance Directives: No Advance Directives Information Provided: Yes service: No Current occupational status: unemployed Cognitive needs: No Hearing needs: No Vision needs: Yes Meds Allergies Allergy/AdvReac Type Severity Reaction Status Date / Time No Known Allergies Allergy Verified 11/18/22 13:45 Home Medications Medication Instructions Recorded Confirmed Last Taken Type blood sugar diagnostic #10 ea 05/03/20 11/12/22 Unknown History Physical Exam 2 Vital Signs and Narrative: Vital Signs: Last Vital Signs Temp 98.2 F 11/18/22 17:33 Pulse 92 11/18/22 17:33 Resp 16 11/18/22 17:33 BP 124/58 L 11/18/22 17:33 Pulse Ox 97 11/18/22 17:33 O2 Del Method Room Air 11/18/22 17:33 BMI result Body Mass Index 42.9 Middle-aged male lying in bed in no distress Neck supple, no JVD Regular rate and rhythm, S1-S2 heard Regular breath sounds bilaterally, no wheezing or crackles appreciated Abdomen with mild right-sided tenderness, no guarding, no rigidity, no rebound tenderness Patient is awake, alert and oriented to self, place, time and person ; no focal motor deficit Psych: Normal mood No pedal edema Results Labs 11/18/22 16:04 11/18/22 16:04 Labs: Laboratory Results - last 24 hr 11/18/22 11/18/22 16:04 17:10 MCV 82.6 MCH 27.5 MCHC 33.3 RDW 13.4 Plt Count 230 MPV 9.0 L Immature Gran % (Auto) 0.6 H Neut % (Auto) 86.0 H Lymph % (Auto) 4.7 L [place] % (Auto) 8.4 Eos % (Auto) 0.1 Baso % (Auto) 0.2 Lymph # (Auto) 0.6 L [place] # (Auto) 1.0 Eos # (Auto) 0.0 Baso # (Auto) 0.0 Abs Immat Gran (auto) 0.07 H Absolute Neuts (auto) 10.6 H Absolute Nucleated RBC 0.000 Nucleated RBC % (auto) 0.0 Anion Gap 14 Estim Creat Clear Calc 172.5 Estimated GFR > 60 Random Glucose 153 H Calcium 9.2 Total Bilirubin 1.7 H AST 838 H ALT 572 H Alkaline Phosphatase 176 H Total Protein 7.3 Albumin 4.4 Lipase 25 Urine Color Yellow Urine Appearance Clear Urine pH 6.5 Ur Specific [place] 1.010 Urine Protein Negative Urine Glucose (UA) Negative Urine Ketones 15 Urine Blood Negative Urine Nitrite Negative Ur Leukocyte Esterase Negative COVID-19 (REMY) Negative COVID-19 Clin Com See Note Imaging Radiologist's Impressions: Impressions Abdomen Ultrasound 11/18/22 15:12 IMPRESSION: 1. Diffusely echogenic liver without focal lesion. 2. The gallbladder has been surgically removed. 3. Visualized pancreas, CBD and right kidney is unremarkable. Chest X-Ray 11/18/22 16:11 IMPRESSION: Unremarkable examination. Abdomen/Pelvis CT 11/18/22 17:46 IMPRESSION: Mild fatty infiltration of the liver. Postcholecystectomy. Mild fat stranding gallbladder fossa. No fluid collection seen. No biliary duct dilatation. Patent hepatic and portal veins. Small left renal stone. Fleischner guidelines were followed. Assessment and Plan (1) Acute hepatitis: Status: Acute Plan This is a 37-year-old male with history of fatty liver disease, cholecystectomy, gastric bypass surgery, currently not on any prescription medications who presents to the emergency department for evaluation of abdominal pain. #. Acute hepatocellular liver injury: Noted significant elevation in AST and ALT. Workup pending. Consulted Gastroenterology, appreciate assistance. No evidence of acute liver failure. Symptomatic control IV p.r.n. No new medications. #. Reactive leukocytosis DVT prophylaxis: Lovenox Full code Admit as inpatient and will require two night minimum hospital stay for evaluation of elevated transaminases. Specialist consult pending Time Spent With Patient Time: Total time managing care of this patient today ____ minutes. Quality Stroke Does the patient have a stroke diagnosis?: No VTE Prior VTE?: No VTE Risk Level:: Medical - moderate - high VTE Device Contraindication: Treatment Not Indicated VTE Drug Contraindication: N/A - Med Ordered
[2022-11-18 19:44] VITALS: BP 119/58; PULSE 73; RESP 17; TEMP 36.8; O2SAT 97
--- NOTE | 2022-11-18 19:50 | PHA.MEDREC ---
Pharmacy Consult ? Medication Reconciliation Pharmacy has completed the medication reconciliation. Patient reported he is suppose to be taking vit D but has not in a little while because he has to pick some up. Valeria Sinha, [facility]
[2022-11-18 20:47] VITALS: BP 132/86; PULSE 80; RESP 18; TEMP 36.4; O2SAT 98
[2022-11-18 21:26] LABS: Acetaminophen LAB < 17 mcg/mL (<30)
[2022-11-18 23:51] VITALS: BP 124/61; PULSE 73; RESP 16; TEMP 36.7; O2SAT 96
[2022-11-19 02:20] VITALS: BMI 42.9
[2022-11-19 04:00] VITALS: BP 124/66; PULSE 67; RESP 18; TEMP 36.5; O2SAT 97
[2022-11-19 05:15] LABS: HBS Num1 105.27 mIU/mL (0-7.99); HBc Num1 0.21 S/CO (0.00-0.79); HBsAGNum1 0.24 S/CO (0.00-0.99); Hepatitis A Antibody IgM 0.36 Index (0-0.79); Hepatitis B Core Antibody Nonreactive (Nonreactive); Hepatitis B Surface Antigen Negative (Negative); ~Hepatitis A Antibody IgM Nonreactive (Nonreactive); ~Hepatitis B Surface Antibody REACTIVE (Nonreactive); ~Hepatitis C Antibody Nonreactive (Nonreactive)
[2022-11-19 06:32] LABS: MANUAL DIFF FLAG NO
[2022-11-19 06:45] LABS: Basophils Percent Auto 0.6 % (0-2); Eosinophils Absolute Auto 0.3 X10*3/uL (0.0-0.4); Eosinophils Percent Auto 4.2 % (0-4); Hematocrit 41.7 % (42.0-52.0); Hemoglobin 13.6 g/dl (14.0-18.0); Imm Gran Abs Auto 0.04 X10*3/uL (0.00-0.03); Imm Gran Pct Auto 0.6 % (0.0-0.4); Lymphocytes Absolute Auto 1.5 X10*3/uL (1.2-4.9); Lymphocytes Percent Auto 23.6 % (20-40); Mean Corpuscular HGB Conc 32.6 g/dl (31.0-36.0); Mean Corpuscular Hemoglobin 27.4 pg (27.0-33.0); Mean Corpuscular Volume 83.9 fL (80.0-98.0); Mean Platelet Volume 9.1 fL (9.4-12.4); Monocytes Absolute Auto 0.7 X10*3/uL (0.1-1.2); Monocytes Percent Auto 11.1 % (2-11); Neutrophils Absolute Auto 3.8 x10*3/uL (2.0-8.3); Neutrophils Percent Auto 59.9 % (45-73); Platelet Count 223 X10*3/uL (160-400); Red Blood Count 4.97 X10*6/uL (4.60-5.80); Red Cell Distribution Width 13.9 % (11.0-16.0); White Blood Count 6.4 X10*3/uL (4.8-10.8)
[2022-11-19 07:00] LABS: Alanine Aminotransferase 867 U/L (0-40); Albumin Level 3.7 g/dL (3.5-5.0); Alkaline Phosphatase 202 U/L (39-117); Anion Gap 11 (12-20); Aspartate Amino Transferase 744 U/L (5-37); Bilirubin Total 1.4 mg/dL (0.0-1.0); Blood Urea Nitrogen 7 mg/dL (9-16); Carbon Dioxide 27 mmol/L (22-29); Chloride 105 mmol/L (96-108); Creatinine Clr Calc Pharmacy 190.2; Estimated Glomerular Filt Rate > 60; Glucose Random 133 mg/dL (60-115); Potassium 3.9 mmol/L (3.3-5.1); Sodium 139 mmol/L (135-145); Total Protein 6.6 g/dL (6.5-8.0)
[2022-11-19 07:49] VITALS: BP 134/79; PULSE 68; RESP 17; TEMP 36.2; O2SAT 97
[2022-11-19] MEDS: Cholecalciferol (Vitamin D3) 25 MCG TABLET 50 MCG PO (10:16)
[2022-11-19] MEDS: 0.9 % Sodium Chloride Flush 3 ML SYRINGE IVFLUSH ×3 (10:16→20:33)
--- NOTE | 2022-11-19 10:20 | P.CNGI_ITS ---
History of Present Illness Data of Consult Service Date: 11/19/22 Requesting physician: Beto Jimenez Primary Care Provider: Rajan Clark MD HPI Reason for consult: abn LFT 37-year-old male with history of fatty liver disease, cholecystectomy, gastric bypass surgery, and obesity who I am seeing for assessment for abn LFT Patient had severe 10/10 colicky pain 1 d before admission similar to his gallbladder pain (GB removed 03/2022), located in both upper flanks and RUQ with nausea, but no vomiting, fevers, jaundice, diarrhea, constipation noted. He did recall eating some soggy chicken at [employer] day before this. no sick contacts, and no IVDA, alcohol use, OTC drugs or recent abx within last 3 months. No history of hepatitis virus or STDs. Patient states he had lab work by his PCP about 15 days prior to presentation which were normal. Denies Tylenol use. No chest discomfort, palpitations, shortness of breath, changes in urinary habits. He does not take tylenol. He does suffer chronic joint pains and stiffness, mother with hx of RA and fibromyalgia. LABS: LFT bili- 1.7, AST 838, ALT 572, alk phos: 176 IMAGING: US and Ct with nml CBD, mild inflammation around GB fossa, nml pancreas Since admission has been eating regular food without issue. Review of Systems 2 Review of Systems: Constitutional : No Weight loss, No Fever, No Chills ENT/Mouth : No sore throat, No Rhinorrhea Eyes: No Swelling, No Redness Cardiovascular : No Chest Pain, No SOB, No Edema Respiratory : No Cough, No Sputum, No Wheezing Gastrointestinal : see HPI Genitourinary : NO Dysuria, No Urinary Frequency, No Hematuria, No Urgency Musculoskeletal : +joint pain, Skin : No Skin Lesions, No rash Neuro : No Weakness, No Numbness, No Dizziness, No Headache Psych : No Anxiety/Panic, No Depression Heme/Lymph: No Bruising, No Lymphadenopathy Endocrine : No Polyuria, No Polydipsia All other systems reviewed and are negative. [facility] Past Medical History Medical History Morbid obesity with BMI of 40.0-44.9, adult Cholecystitis Obesity (BMI 30-39.9) Vitamin D deficiency Frequent loose stools Diarrhea due to malabsorption Family History Family History Mother Arthritis Father Parkinsons Surgical History Surgical History History of laparoscopic cholecystectomy (03/19/22) History of gastric bypass (~04/05/20) Status post laparoscopic sleeve gastrectomy Status post gastric bypass for obesity Social History Social History Household Members: Spouse and Children Housing: House Do you presently have visiting nurse or other home services: No Alcohol intake: unknown Patient Tobacco Use Status: Never used Tobacco e-Cigarette/Vaping Use: Never Used Second Hand Smoke Exposure: No service: No Current occupational status: unemployed Cognitive needs: No Hearing needs: No Vision needs: Yes Meds Allergies Allergy/AdvReac Type Severity Reaction Status Date / Time No Known Allergies Allergy Verified 11/18/22 13:45 Active Medications: Current Medications Enoxaparin Sodium (Enoxaparin Sodium 40 Mg/0.4 Ml Syringe) 40 mg SUBCUT Q24H [facility] Last Admin: 11/18/22 21:49 Dose: Not Given Melatonin (Melatonin 3 Mg Tablet) 6 mg PO BEDTIME PRN PRN Reason: Insomnia Morphine Sulfate (Morphine Sulfate 4 Mg/Ml Cartridge) 4 mg IVPUSH Q4H PRN; Protocol PRN Reason: Pain, Severe (Pain Scale 7-10) Ondansetron HCl (Ondansetron Hcl 4 Mg/2 Ml Vial) 4 mg IVPUSH Q8H PRN PRN Reason: Nausea and Vomiting Sodium Chloride (0.9 % Sodium Chloride Flush 3 Ml Syringe) 3 ml IVFLUSH QSHIFT [facility] Last Admin: 11/19/22 10:16 Dose: 3 ml Vitamin D (Cholecalciferol (Vitamin D3) 25 Mcg Tablet) 50 mcg PO DAILY [facility] Last Admin: 11/19/22 10:16 Dose: 50 mcg Home Medications Medication Instructions Recorded Confirmed Last Taken Type blood sugar diagnostic #10 ea 05/03/20 11/12/22 Unknown History Physical Exam 2 Vital Signs: Vital Signs: Last Vital Signs Temp 97.2 F 11/19/22 07:49 Pulse 68 11/19/22 07:49 Resp 17 11/19/22 07:49 BP 134/79 11/19/22 07:49 Pulse Ox 97 11/19/22 07:49 O2 Del Method Room Air 11/19/22 07:49 BMI result Body Mass Index 42.9 EXAM: GENERAL: The patient is well developed and nontoxic, obese VITAL SIGNS:see workflow HEENT: Nonicteric sclerae, PERRLA, EOMI. Oropharynx clear. Moist mucous membranes. Conjunctivae appear well perfused. No thyroid mass. CHEST: Chest wall is nontender. HEART: Regular rate and rhythm without murmurs. LUNGS: Clear to auscultation bilaterally. ABDOMEN: Soft, positive bowel sounds, nontender, no organomegaly.no flank tenderness SKIN: No rash, no excessive bruising, petechiae, or purpura. NEUROLOGIC: Cranial nerves II-XII intact without motor/sensory deficit. Psych--nml affect Results Labs 11/19/22 05:48 11/19/22 05:48 Labs: Short CBC 11/18/22 11/19/22 Range/Units 16:04 05:48 WBC 12.3 H 6.4 (4.8-10.8) X10*3/uL Hgb 14.4 13.6 L (14.0-18.0) g/dl Hct 43.3 41.7 L (42.0-52.0) % Plt Count 230 223 (160-400) X10*3/uL BMP 11/18/22 11/19/22 16:04 05:48 Sodium 139 139 Potassium 4.3 3.9 Chloride 104 105 Carbon Dioxide 25 27 BUN 12 7 L Creatinine 0.75 0.68 Calcium 9.2 9.0 Liver Function 11/18/22 11/19/22 Range/Units 16:04 05:48 Total Bilirubin 1.7 H 1.4 H (0.0-1.0) mg/dL AST 838 H 744 H (5-37) U/L ALT 572 H 867 H (0-40) U/L Alkaline Phosphatase 176 H 202 H (39-117) U/L Albumin 4.4 3.7 (3.5-5.0) g/dL Urine 11/18/22 Range/Units 17:10 Urine Color Yellow Urine Appearance Clear Urine pH 6.5 (5.0-9.0) Ur Specific [place] 1.010 (1.005-1.025) Urine Protein Negative (Neg-Trace) mg/dL Urine Glucose (UA) Negative (Negative) mg/dL Imaging CT scan - abdomen: Attestation: I personally reviewed and interpreted this imaging study as follows: (gastric bypass noted, ) Assessment and Plan (1) Acute hepatitis: Status: Acute Plan 1/ Acute abdominal pain and abn LFt, with improvement of pain but persistent raised LFT, maybe related to retained gallstones, infectious etiology, less likely autoimmune, wilsons or budd chiari --hep A IgM, Hep C neg PLAN: 1. trend LFT, avoid nephrotoxins 2/ MRCP 3/ if MRCP nml and ongoing raised LFT then liver bx and check HSV, CMV and EBV titers -IgM levels Time Spent With Patient Time: Total time managing care of this patient today ____ minutes. Procedures Date of Service Date of Service: 11/19/22
--- NOTE | 2022-11-19 11:14 | HO.PM.IMPN ---
Subjective Subjective Date of Service: 11/19/22 Interval History: flank pain improved no fever no nausea/vomiting no high-risk food exposures other than questionable fried chicken Review of Systems Review of Systems: Yes all other systems are reviewed and are negative Physical Exam Vital Signs: Vital Signs: Last Vital Signs Temp 97.2 F 11/19/22 07:49 Pulse 68 11/19/22 07:49 Resp 17 11/19/22 07:49 BP 134/79 11/19/22 07:49 Pulse Ox 97 11/19/22 07:49 O2 Del Method Room Air 11/19/22 07:49 BMI result Body Mass Index 42.9 Gen: in no acute distress HEENT: sclera anicteric, moist mucus membranes Neck: supple Lungs: clear to auscultation bilaterally Heart: regular rate and rhythm, no murmurs Abd: soft, non-tender, non-distended, obese Ext: no edema Skin: warm/well-perfused Neuro: alert and oriented x3, no focal findings Psych: appropriate affect Objective Data Active Medications Enoxaparin Sodium (Enoxaparin Sodium 40 Mg/0.4 Ml Syringe) 40 mg SUBCUT Q24H [facility] Last Admin: 11/18/22 21:49 Dose: Not Given Documented By: MARTIN Non-Admin Reason: Patient Refused Melatonin (Melatonin 3 Mg Tablet) 6 mg PO BEDTIME PRN PRN Reason: Insomnia Morphine Sulfate (Morphine Sulfate 4 Mg/Ml Cartridge) 4 mg IVPUSH Q4H PRN; Protocol PRN Reason: Pain, Severe (Pain Scale 7-10) Ondansetron HCl (Ondansetron Hcl 4 Mg/2 Ml Vial) 4 mg IVPUSH Q8H PRN PRN Reason: Nausea and Vomiting Sodium Chloride (0.9 % Sodium Chloride Flush 3 Ml Syringe) 3 ml IVFLUSH QSHIFT [facility] Last Admin: 11/19/22 10:16 Dose: 3 ml Documented By: TONG Vitamin D (Cholecalciferol (Vitamin D3) 25 Mcg Tablet) 50 mcg PO DAILY [facility] Last Admin: 11/19/22 10:16 Dose: 50 mcg Documented By: TONG Labs 11/19/22 05:48 11/19/22 05:48 Labs: Laboratory Results - last 24 hr 11/18/22 11/18/22 11/18/22 16:04 17:10 21:02 MCV 82.6 MCH 27.5 MCHC 33.3 RDW 13.4 Plt Count 230 MPV 9.0 L Immature Gran % (Auto) 0.6 H Neut % (Auto) 86.0 H Lymph % (Auto) 4.7 L [place] % (Auto) 8.4 Eos % (Auto) 0.1 Baso % (Auto) 0.2 Lymph # (Auto) 0.6 L [place] # (Auto) 1.0 Eos # (Auto) 0.0 Baso # (Auto) 0.0 Abs Immat Gran (auto) 0.07 H Absolute Neuts (auto) 10.6 H Absolute Nucleated RBC 0.000 Nucleated RBC % (auto) 0.0 Anion Gap 14 Estim Creat Clear Calc 172.5 Estimated GFR > 60 Random Glucose 153 H Calcium 9.2 Total Bilirubin 1.7 H AST 838 H ALT 572 H Alkaline Phosphatase 176 H Total Protein 7.3 Albumin 4.4 Lipase 25 Urine Color Yellow Urine Appearance Clear Urine pH 6.5 Ur Specific [place] 1.010 Urine Protein Negative Urine Glucose (UA) Negative Urine Ketones 15 Urine Blood Negative Urine Nitrite Negative Ur Leukocyte Esterase Negative Acetaminophen < 17 COVID-19 (REMY) Negative COVID-19 Clin Com See Note Hepatitis A IgM Ab Nonreactive Hep Bs Antigen Negative Hep Bs Antibody REACTIVE Hep B Core Total Ab Nonreactive Hepatitis C Ab (EIA) Nonreactive 11/19/22 05:48 MCV 83.9 MCH 27.4 MCHC 32.6 RDW 13.9 Plt Count 223 MPV 9.1 L Immature Gran % (Auto) 0.6 H Neut % (Auto) 59.9 Lymph % (Auto) 23.6 [place] % (Auto) 11.1 H Eos % (Auto) 4.2 H Baso % (Auto) 0.6 Lymph # (Auto) 1.5 [place] # (Auto) 0.7 Eos # (Auto) 0.3 Baso # (Auto) 0.0 Abs Immat Gran (auto) 0.04 H Absolute Neuts (auto) 3.8 Absolute Nucleated RBC 0.000 Nucleated RBC % (auto) 0.0 Anion Gap 11 L Estim Creat Clear Calc 190.2 Estimated GFR > 60 Random Glucose 133 H Calcium 9.0 Total Bilirubin 1.4 H AST 744 H ALT 867 H Alkaline Phosphatase 202 H Total Protein 6.6 Albumin 3.7 Lipase Urine Color Urine Appearance Urine pH Ur Specific [place] Urine Protein Urine Glucose (UA) Urine Ketones Urine Blood Urine Nitrite Ur Leukocyte Esterase Acetaminophen COVID-19 (REMY) COVID-19 Clin Com Hepatitis A IgM Ab Hep Bs Antigen Hep Bs Antibody Hep B Core Total Ab Hepatitis C Ab (EIA) Assessment and Plan (1) Acute hepatitis: Status: Acute Assessment and Plan: d2 37yo M with hx NAFLD, hx gastric bypass, hx cholecystectomy presenting with flank pain, found to have acute hepatocellular injury acute hepatocellular injury - monitor transaminases - GI consultation - MRCP - pending: HCV viral load, HIV, CHAZ, ceruloplasm leukocytosis - reactive; resolved VTE ppx - LMWH dispo - eventual home In my clinical judgment, the patient requires continued inpatient hospitalization for the following reasons: acute liver injury Time Spent With Patient Time: Total time managing care of this patient today ___35_ minutes. Quality Stroke Does the patient have a stroke diagnosis?: No VTE Prior VTE?: No VTE Risk Level:: Medical - moderate - high VTE Device Contraindication: Treatment Not Indicated VTE Drug Contraindication: N/A - Med Ordered
--- NOTE | 2022-11-19 11:25 | MHC.CM.PN ---
PT REPORTS HE LIVES WITH HIS AND KIDS AND IS INDEPENDENT WITH CARE HE DENIES USE OF DME OR HOME SERVICES PT COMPLETED A HCP TODAY NAMING HIS MOTHER, CELY, HIS AGENT PCP: JOAQUIN MOORE DCP: HOME NO SERVICES PTS CAR IS IN THE LOT
[2022-11-19 15:39] VITALS: BP 115/58; PULSE 65; RESP 18; TEMP 36.4; O2SAT 97
[2022-11-19 19:13] VITALS: BP 131/69; PULSE 66; RESP 18; TEMP 36.3; O2SAT 97
[2022-11-20 04:00] VITALS: BP 113/68; PULSE 57; RESP 16; TEMP 36.3; O2SAT 95
[2022-11-20 06:22] LABS: INTERNATIONAL NORM RATIO 1.2 (0.9-1.1); Prothrombin Time 14.2 SEC (11.1-13.3)
[2022-11-20 06:33] LABS: Alanine Aminotransferase 514 U/L (0-40); Albumin Level 3.7 g/dL (3.5-5.0); Alkaline Phosphatase 163 U/L (39-117); Anion Gap 11 (12-20); Aspartate Amino Transferase 183 U/L (5-37); Bilirubin Total 0.6 mg/dL (0.0-1.0); Blood Urea Nitrogen 16 mg/dL (9-16); Calcium 8.8 mg/dL (8.4-10.2); Carbon Dioxide 27 mmol/L (22-29); Chloride 107 mmol/L (96-108); Creatinine Clr Calc Pharmacy 179.7; Estimated Glomerular Filt Rate > 60; Glucose Random 130 mg/dL (60-115); Potassium 4.2 mmol/L (3.3-5.1); Sodium 141 mmol/L (135-145); Total Protein 6.3 g/dL (6.5-8.0)
[2022-11-20 07:18] VITALS: BP 121/78; PULSE 60; RESP 16; TEMP 37; O2SAT 95
[2022-11-20 09:20] LABS: HIV AB/AG Nonreactive (Nonreactive); HIV Num 1 0.06 S/CO (0.00-0.99)
[2022-11-20] MEDS: Cholecalciferol (Vitamin D3) 25 MCG TABLET 50 MCG PO (10:29)
[2022-11-20] MEDS: 0.9 % Sodium Chloride Flush 3 ML SYRINGE IVFLUSH (10:30)
--- NOTE | 2022-11-20 13:12 | PM.DS ---
DS: Providers Provider Date of Service: 11/20/22 Date of admission: 11/18/22 19:42 Date of discharge: 11/20/22 Primary care physician: Rajan Clark MD Consults: 11/18/22 19:58 Consult to Gastroenterology Routine Consulting Provider: Apple Lovett Reason for consultation: elevated transaminases DS: Diagnosis Discharge Diagnosis (1) Hepatocellular injury: Status: Acute (2) Morbid obesity with BMI of 40.0-44.9, adult: Status: Acute DS: Summary Hospital Course Hospital Course: from admission H+P by hospitalist Chan Jimenez MD, 11/18/22: This is a 37-year-old male with history of fatty liver disease, cholecystectomy, gastric bypass surgery, currently not on any prescription medications who presents to the emergency department for evaluation of abdominal pain. Patient states that started 1 day prior to presentation. Initially it was intermittent and progressed to being constant. It is located in the bilateral flanks and right upper quadrant region. Patient states it feels similar to his pain due to gallbladder. Also has associated fatigability and nausea. No diarrhea. Admits chills but no fever. Admits to eating [employer] chicken 2 days prior to presentation and drank coffee at work. No IV drug use. Sexually active with 1 female partner. No history of hepatitis virus or STDs. Patient states he had lab work about 15 days prior to presentation which were normal. Denies Tylenol use. No chest discomfort, palpitations, shortness of breath, changes in urinary habits. Does endorse occasional alcohol use In the emergency department, AST and ALT found to be significantly elevated. 37yo M with hx NAFLD, hx gastric bypass, and prior cholecystectomy presenting with flank pain and found to have acute hepatocellular injury was admitted to the hospitalist service. GI was consulted. MRCP with normal bile ducts with no stones or sludge. HAV IgM negative, HBV-immune, HCV antibody negative [though positive in past], HIV negative. Pending studies: HCV RNA, CHAZ, ASMA, ceruloplasmin. Transaminases improved and should be repeated in 1 week. Suspect viral etiology. He should follow up with Gastroenterology in 2 weeks for results of pending tests. Time Spent with Patient Time attestation: Total time managing care of this patient today __35__ minutes. Discharge coordination time: Greater than 30 minutes Quality: Safe Use of Opioids Does Pt have an Active Cancer Diagnosis on the Problem List?: No Quality: Stroke Does the patient have a stroke diagnosis?: No Physical Exam Vital Signs: Vital Signs: Last Vital Signs Temp 98.6 F 11/20/22 07:18 Pulse 60 11/20/22 07:18 Resp 16 11/20/22 07:18 BP 121/78 11/20/22 07:18 Pulse Ox 95 11/20/22 07:18 O2 Del Method Room Air 11/20/22 07:18 BMI result Body Mass Index 42.9 Gen: in no acute distress HEENT: sclera anicteric, moist mucus membranes Neck: supple Lungs: clear to auscultation bilaterally Heart: regular rate and rhythm, no murmurs Abd: soft, non-tender, non-distended, obese Ext: no edema Skin: warm/well-perfused Neuro: alert and oriented x3, no focal findings Psych: appropriate affect DS: Data Data Completed and Pending Completed studies during hospitalization [Text1]: Laboratory Results WBC 6.4 X10*3/uL (4.8-10.8) 11/19/22 05:48 RBC 4.97 X10*6/uL (4.60-5.80) 11/19/22 05:48 Hgb 13.6 g/dl (14.0-18.0) L 11/19/22 05:48 Hct 41.7 % (42.0-52.0) L 11/19/22 05:48 MCV 83.9 fL (80.0-98.0) 11/19/22 05:48 MCH 27.4 pg (27.0-33.0) 11/19/22 05:48 MCHC 32.6 g/dl (31.0-36.0) 11/19/22 05:48 RDW 13.9 % (11.0-16.0) 11/19/22 05:48 Plt Count 223 X10*3/uL (160-400) 11/19/22 05:48 MPV 9.1 fL (9.4-12.4) L 11/19/22 05:48 Immature Gran % (Auto) 0.6 % (0.0-0.4) H 11/19/22 05:48 Neut % (Auto) 59.9 % (45-73) 11/19/22 05:48 Lymph % (Auto) 23.6 % (20-40) 11/19/22 05:48 [place] % (Auto) 11.1 % (2-11) H 11/19/22 05:48 Eos % (Auto) 4.2 % (0-4) H 11/19/22 05:48 Baso % (Auto) 0.6 % (0-2) 11/19/22 05:48 Lymph # (Auto) 1.5 X10*3/uL (1.2-4.9) 11/19/22 05:48 [place] # (Auto) 0.7 X10*3/uL (0.1-1.2) 11/19/22 05:48 Eos # (Auto) 0.3 X10*3/uL (0.0-0.4) 11/19/22 05:48 Baso # (Auto) 0.0 X10*3/uL (0.0-0.2) 11/19/22 05:48 Abs Immat Gran (auto) 0.04 X10*3/uL (0.00-0.03) H 11/19/22 05:48 Absolute Neuts (auto) 3.8 x10*3/uL (2.0-8.3) 11/19/22 05:48 Absolute Nucleated RBC 0.000 X10*3/uL (0.0-0.012) 11/19/22 05:48 Nucleated RBC % (auto) 0.0 /100WBC (0.0-0.2) 11/19/22 05:48 PT 14.2 SEC (11.1-13.3) H 11/20/22 05:33 INR 1.2 (0.9-1.1) H 11/20/22 05:33 Sodium 141 mmol/L (135-145) 11/20/22 05:33 Potassium 4.2 mmol/L (3.3-5.1) 11/20/22 05:33 Chloride 107 mmol/L (96-108) 11/20/22 05:33 Carbon Dioxide 27 mmol/L (22-29) 11/20/22 05:33 Anion Gap 11 (12-20) L 11/20/22 05:33 BUN 16 mg/dL (9-16) 11/20/22 05:33 Creatinine 0.72 mg/dL (0.5-1.4) 11/20/22 05:33 Estim Creat Clear Calc 179.7 11/20/22 05:33 Estimated GFR > 60 11/20/22 05:33 Random Glucose 130 mg/dL (60-115) H 11/20/22 05:33 Calcium 8.8 mg/dL (8.4-10.2) 11/20/22 05:33 Total Bilirubin 0.6 mg/dL (0.0-1.0) 11/20/22 05:33 AST 183 U/L (5-37) H 11/20/22 05:33 ALT 514 U/L (0-40) H 11/20/22 05:33 Alkaline Phosphatase 163 U/L (39-117) H 11/20/22 05:33 Troponin I High Sens < 2.7 ng/L (<3.5-35.0) 11/18/22 16:04 Total Protein 6.3 g/dL (6.5-8.0) L 11/20/22 05:33 Albumin 3.7 g/dL (3.5-5.0) 11/20/22 05:33 Lipase 25 U/L (8-78) 11/18/22 16:04 Urine Color Yellow 11/18/22 17:10 Urine Appearance Clear 11/18/22 17:10 Urine pH 6.5 (5.0-9.0) 11/18/22 17:10 Ur Specific [place] 1.010 (1.005-1.025) 11/18/22 17:10 Urine Protein Negative mg/dL (Neg-Trace) 11/18/22 17:10 Urine Glucose (UA) Negative mg/dL (Negative) 11/18/22 17:10 Urine Ketones 15 mg/dL (Negative) 11/18/22 17:10 Urine Blood Negative (Negative) 11/18/22 17:10 Urine Nitrite Negative (Negative) 11/18/22 17:10 Ur Leukocyte Esterase Negative (Negative) 11/18/22 17:10 Acetaminophen < 17 mcg/mL (<30) 11/18/22 21:02 COVID-19 (REMY) Negative (Negative) 11/18/22 16:04 COVID-19 Clin Com See Note 11/18/22 16:04 Hepatitis A IgM Ab Nonreactive (Nonreactive) 11/18/22 21:02 Hep Bs Antigen Negative (Negative) 11/18/22 21:02 Hep Bs Antibody REACTIVE (Nonreactive) 11/18/22 21:02 Hep B Core Total Ab Nonreactive (Nonreactive) 11/18/22 21:02 Hepatitis C Ab (EIA) Nonreactive (Nonreactive) 11/18/22 21:02 HIV 1&2 Ab/P24 Ag 4thGn Nonreactive (Nonreactive) 11/20/22 05:33 Impressions Abdomen Ultrasound 11/18/22 15:12 IMPRESSION: 1. Diffusely echogenic liver without focal lesion. 2. The gallbladder has been surgically removed. 3. Visualized pancreas, CBD and right kidney is unremarkable. Chest X-Ray 11/18/22 16:11 IMPRESSION: Unremarkable examination. Abdomen/Pelvis CT 11/18/22 17:46 IMPRESSION: Mild fatty infiltration of the liver. Postcholecystectomy. Mild fat stranding gallbladder fossa. No fluid collection seen. No biliary duct dilatation. Patent hepatic and portal veins. Small left renal stone. Fleischner guidelines were followed. Cholangiopancreatography MRI 11/19/22 13:09 IMPRESSION: Limited exam due to motion. Normal caliber intrahepatic and extrahepatic bile ducts. No common bile duct stone seen. Post cholecystectomy. No fluid collection in the gallbladder fossa. Mild fatty infiltration of the liver. Discharge Plan Discharge Anticipated Discharge Date/Time: 11/20/22 13:08 Patient Disposition: Home, Self-Care Discharge Diagnosis: acute hepatocellular injury Referrals: Rajan Clark MD [Primary Care Provider] - 1 Week Apple Lovett MD [Physician] - 2 Weeks Discharge Medications: Continued (DME) blood sugar diagnostic Strip See Rx Instructions Not Applicable DAILY Qty: 10 Rx Instructions: As directed cholecalciferol (vitamin D3) 50 mcg (2,000 unit) capsule 50 mcg PO DAILY 90 Days Qty: 90 3RF ibuprofen 800 mg tablet 800 mg PO Q8H PRN (Reason: pain) 30 Days Qty: 90 1RF Rx Instructions: Take with food Discharge Orders: Discharge Order (Routine); Ordered 11/20/22 Ordered By: Iam Guerra Diet: Advance to usual diet Activity on Discharge: As tolerated Stand Alone Forms: Patient Portal Discharge page Other Ambulatory Orders: Liver Panel (Routine) Timeframe: 1 Week Facility: [facility] - Location: Laboratory Ordered By: Iam Guerra Care Plan Goals: diagnosis of hepatocellular injury Health Concerns: acute hepatocellular injury Plan of Treatment: improving avoid acetaminophen for now follow up in 2 [place] [facility] [place] Lovett] Please follow up with your primary care doctor within 1 week. Return to the hospital if you experience recurrent or worsening symptoms. Assessment: See Discharge Summary.
[2022-11-21 20:18] LABS: HCV Log PCR <1.18 NOT DETECTED Log IU/mL (NOT DETECTED); HepC Viral Load <15 NOT DETECTED IU/mL (NOT DETECTED)
[2022-11-23 14:38] LABS: Anti Nuclear Antibody Screen NEGATIVE (NEGATIVE)
[2022-11-24 12:44] LABS: Ceruloplasmin 26 mg/dL (18-36)
[2022-11-24 13:58] LABS: Smooth Muscle Antibody <20 U (<20)
== END 2022-11-20 14:34 | disposition home or self-care (01) ==
LOC: HO.ED 19:08 → HO.EDOVER 19:47 → HO.S3 19:54
PROVIDERS: Physician Assistant; Admitting Provider Student in an Organized Health Care Education/Training Program; Emergency Provider Internal Medicine; PCP Internal Medicine; Visit Provider Family Medicine
DX: K76.9 Liver disease, unspecified (principal); E66.01 Morbid (severe) obesity due to excess calories; Z20.822 Contact with and (suspected) exposure to COVID-19; Z98.84 Bariatric surgery status; Z68.41 Body mass index [BMI] 40.0-44.9, adult; Z79.899 Other long term (current) drug therapy
CPT/HCPCS: 36415; 71045; 74177; 74181; 76705; 80053; 80143; 81003; 82390; 83690; 84484; 85025; 85610; 86015; 86038; 86704; 86706; 86709; 86803; 87340; 87389; 87522; 87635; 93005; 99221; 99285; J2405; Q9967

== ENCOUNTER → 2022-11-18 19:42 | Outpatient (BNV) | payer OTHER, SELFPAY | PROVIDERS: Admitting Provider Student in an Organized Health Care Education/Training Program; Emergency Provider Internal Medicine; PCP Internal Medicine; Visit Provider Student in an Organized Health Care Education/Training Program | DX: K76.9 Liver disease, unspecified (principal); E66.01 Morbid (severe) obesity due to excess calories; Z68.41 Body mass index [BMI] 40.0-44.9, adult | CPT/HCPCS: 99222; 99232; 99239 ==

== ENCOUNTER → 2022-11-18 19:42 | Outpatient (BNV) | payer OTHER, SELFPAY | PROVIDERS: Admitting Provider Student in an Organized Health Care Education/Training Program; Emergency Provider Internal Medicine; PCP Internal Medicine; Visit Provider Internal Medicine Gastroenterology | DX: B17.9 Acute viral hepatitis, unspecified (principal) | CPT/HCPCS: 99223 ==

== ENCOUNTER 2022-11-27 08:43 | Outpatient (REF) | payer OTHER, SELFPAY ==
[2022-11-27 11:10] LABS: Alanine Aminotransferase 86 U/L (0-40); Albumin Level 4.2 g/dL (3.5-5.0); Alkaline Phosphatase 115 U/L (39-117); Aspartate Amino Transferase 47 U/L (5-37); Bilirubin Direct 0.2 mg/dL (0.0-0.5); Bilirubin Total 0.6 mg/dL (0.0-1.0); Total Protein 7.6 g/dL (6.5-8.0)
== END 2022-11-27 08:44 | disposition home or self-care (01) ==
LOC: HO.LAB 08:43
PROVIDERS: PCP Internal Medicine; Visit Provider Family Medicine
DX: K76.9 Liver disease, unspecified (principal)
CPT/HCPCS: 36415; 80076

== ENCOUNTER 2022-12-01 14:51 | Outpatient (AMB) | payer OTHER, SELFPAY ==
[2022-12-01 15:02] VITALS: BP 120/68; PULSE 70; O2SAT 96; BMI 42.4
--- NOTE | 2022-12-01 15:02 | MHC.PC.OV ---
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 Accompanied by: Self / Same As Patient Allergies No Known Allergies Allergy (Verified 12/07/22 03:05) Medication List - Last Reconciled 12/07/22 by Rajan Clark MD blood sugar diagnostic As directed cholecalciferol (vitamin D3) 50 mcg PO DAILY 90 days ibuprofen 800 mg PO Q8H PRN 30 days Tobacco use date assessed: 12/01/22 Dental Screening Dental Screen Date: 12/01/22 Did you have a dental visit in the last 12 months?: No Did you have a dental problem in the last 6 months where you did not have access to dental care?: No Was dental information given to patient?: No HPI [facility] 11/18-11/20 High Liver Levels HPI Details Patient comes in today for his HDF follow up visit He was briefly admitted to [facility] a couple of weeks ago for significantly elevated LFTs when he presented to the ER with increasing abdominal pain and work ups done revealed the elevated transaminases Patient denies any recent travel Workups done in the hospital, including MRCP and hepatitis profile were all negative; GI was also consulted for further evaluation during his hospital stay His LFTs gradually improved over a few days - viral etiology was suspected He was eventually discharged back home with instructions to follow-up with GI but he was then advised when he tried to call for an appointment that he needs a referral from his PCP Patient states that he currently feels okay although he has been experiencing some nasal congestion, and a nonproductive cough and occasional mild chest congestion over the past few days He denies any headaches or dizziness Denies any chest pains, no shortness of breath No nausea /vomiting, no abdominal pain No change in bowel habits noted [facility] Medical History Morbid obesity with BMI of 40.0-44.9, adult Cholecystitis Obesity (BMI 30-39.9) Vitamin D deficiency Frequent loose stools Diarrhea due to malabsorption Surgical History History of laparoscopic cholecystectomy (03/19/22) History of gastric bypass (~04/05/20) Status post laparoscopic sleeve gastrectomy Status post gastric bypass for obesity Family History Mother Arthritis Father Parkinsons Social History Household Members: Spouse and Children Housing: House Do you presently have visiting nurse or other home services: No Alcohol intake: unknown Patient Tobacco Use Status: Never used Tobacco e-Cigarette/Vaping Use: Never Used Second Hand Smoke Exposure: No service: No Current occupational status: unemployed Cognitive needs: No Hearing needs: No Vision needs: Yes Questionnaire PHQ-9 Over the last 2 weeks, how often have you been bothered by any of the following problems? 1. Little interest or pleasure in doing things: not at all 2. Feeling down, depressed, or hopeless: not at all 3. Trouble falling or staying asleep, or sleeping too much: not at all 4. Feeling tired or having little energy: not at all 5. Poor appetite or overeating: not at all 6. Feeling bad about yourself - or that you are a failure or have let yourself or your family down: not at all 7. Trouble concentrating on things, such as reading the newspaper or watching television: not at all 8. Moving or speaking so slowly that other people could have noticed. Or the opposite - being so fidgety or restless that you have been moving around a lot more than usual: not at all 9. Thoughts that you would be better off or of hurting yourself in some way: not at all Total score: 0 Depression Screening Interpretation: Negative 63051 - PHQ-9 Billing: Yes Source: Developed by Drs. Yosef Johnson, Christiana Yepez, Salinas Morgan and colleagues, with an educational caren from [employer]. Thrive Questionnaire Date Thrive assessed: 12/01/22 I am a: Patient What is your living situation today?: I have a steady place to live Within the past 12 months, did the food you bought not last and you didn't have the money to get more?: Never true Within the past 12 months, did you worry whether your food would run out before you got money to buy more?: Never true Do you have trouble paying for medicines?: No Do you have trouble getting transportation to medical appointments?: No Do you have trouble paying your heating and electricity bill?: No Do you have trouble taking care of your child, family member or friend?: No Do you have trouble with day-to-day activities such as bathing, preparing meals, shopping, managing finances, etc.?: No Are you currently unemployed and looking for a job?: No Are you interested in more education?: No Please select the resources that you would like help with: None Currently or been in a relationship where the following occur: no concerns reported AUDIT C Alcohol Use Questionnaire (AUDIT-C) 1. How often do you have a drink containing alcohol?: Monthly or less 2. How many drinks containing alcohol do you have on a typical day when you are drinking?: 1 or 2 3. How often do you have six or more drinks on one occasion?: Less than monthly Total Score: 2 Score Reviewed/Action Taken: Yes TODD-7 AMB Questionnaire TODD-7 Date TODD - 7 assessed: 12/01/22 Feeling nervous, anxious, or on edge: 0 = Not at all Not being able to stop or control worryin = Not at all Worrying too much about different things: 0 = Not at all Trouble relaxin = Not at all Being so restless that it is hard to sit still: 0 = Not at all Becoming easily annoyed or irritable: 0 = Not at all Feeling afraid as if something awful might happen: 0 = Not at all Total TODD-7 score (0-4 normal; 5-9 mild; 10-14 moderate; 15-21 severe): 0 Source: Developed by Drs. Yosef Johnson, Christiana Yepez, Salinas Morgan and colleagues, with an educational caren from [employer]. Review of Systems Const Denies chills, Reports difficulty sleeping (at times - due to his joint pains), Denies fatigue, Denies fever(s), Denies headache(s) and Denies weakness ENT Denies dysphagia, Denies dizziness, Denies otalgia, Denies headache(s), Reports nasal congestion (mild), Denies neck pain, Denies odynophagia and Denies sore throat Card Denies chest pain, Denies rapid heart rate, Denies irregular heart rhythm, Denies palpitations and Denies dyspnea Resp Denies chest congestion, Reports cough (occasional, non-productive), Denies dyspnea and Denies wheezing GI Denies abdominal pain, Denies bloating, Denies constipation, Denies dysphagia, Denies heartburn, Denies diarrhea, Denies nausea, Denies odynophagia and Denies vomiting Denies hematuria, Denies difficulty urinating, Denies dysuria and Denies urinary frequency Musc Reports back pain (over the left lower back), Reports arthralgias (involving multiple joints ), Reports joint swelling (on and off, especially in both hands) and Denies neck pain Skin/Breast Details: (+) cysts over the lower legs bilaterally Denies change in pigmentation, Reports lesions ((+) multiple hyperpigmented lesions on the face) and Denies unusual bruising Neuro Denies dizziness, Denies headache(s), Reports paresthesias (over both lower extremities) and Denies weakness Endo Denies fatigue and Denies palpitations Aller/Immun Denies wheezing Physical exam (Primary Care) Vital Signs: Last Vital Signs Pulse 70 12/01/22 15:02 BP 120/68 12/01/22 15:02 Pulse Ox 96 12/01/22 15:02 BMI result Body Mass Index 42.4 Tobacco/Smoking Status: Tobacco use Status Tobacco use date assessed 12/01/22 12/01/22 15:13 Patient Tobacco Use Status Never used Tobacco 12/01/22 15:13 e-Cigarette/Vaping Use Never Used 12/01/22 15:13 PHQ-9: PHQ-9 Score PHQ-9: Total score 0 12/01/22 16:08 Depression Screening Interpretation: Negative Thrive Assessment: Date of Thrive Assessment Date Thrive assessed 12/01/22 12/01/22 15:13 Currently or been in a relationship where the following occur: no concerns reported Const General: no acute distress and alert HENMT Ears: TM's normal bilaterally and EAC's normal Throat: Yes posterior oropharynx normal and Yes tonsils normal (no TP congestion) Neck Neck: Yes no lymphadenopathy and Yes supple Thyroid: Thyroid normal Resp Auscultation: clear to auscultation bilaterally, no rales and no wheezes Cardio Rhythm: regular rhythm Heart sounds: no murmurs GI Palpation (GI): Soft to palpation, nontender and No hepatosplenomegaly present Auscultation: normal bowel sounds General: Yes no CVA tenderness Back/Spine/Pelvis Back: no CVA tenderness Thoracic/Lumbar Spine: paraspinal muscle tenderness on the left in the mid lumbar and in the lower lumbar and No lumbar spinal tenderness Skin Rashes: no rashes Extrem Other: (+) bilateral shoulder and elbow tenderness but with normal ROM of both shoulders and elbows; (+) tenderness noted in both hands General: Yes no clubbing, cyanosis or edema Assessment and Plan Assessment & Plan (1) Elevated LFTs: Code(s): R79.89 - Other specified abnormal findings of blood chemistry Plan: Suspect viral etiology as work ups done in the hospital, including hepatitis profile and MRCP, were all negative Will refer him to GI for further evaluation and management (2) Respiratory tract infection: Code(s): J98.8 - Other specified respiratory disorders Plan: Will send him to the lab to test for COVID Plan Follow up as scheduled in March 2023 Orders: Orders SARS-CoV2/FLU/RSV 12/01/22 J98.8 - Other specified respiratory disorders, Z20.822 - Contact with and (suspected) exposure to COVID-19 Referrals Gastroenterology Referral B17.9 - Acute viral hepatitis, unspecified, R79.89 - Other specified abnormal findings of blood chemistry Coding Level of Care Code Est Pt Level 3 (33548) Diagnoses Elevated LFTs R79.89 Respiratory tract infection J98.8
== END 2022-12-01 16:09 | disposition home or self-care (01) ==
PROVIDERS: PCP Internal Medicine; Visit Provider Internal Medicine
DX: R79.89 Other specified abnormal findings of blood chemistry (principal); J98.8 Other specified respiratory disorders; Z86.39 Personal history of other endocrine, nutritional and metabolic disease
CPT/HCPCS: 99213

== ENCOUNTER 2022-12-01 16:22 | Outpatient (REF) | payer OTHER, SELFPAY ==
[2022-12-01 17:38] LABS: Influenza A PCR NEGATIVE (Negative); Influenza B PCR NEGATIVE (Negative); Resp Syncy Virus RNA Qual PCR NEGATIVE (Negative); SARS COV2 PCR INHOUSE POSITIVE (Negative)
[2022-12-01 18:20] LABS: Appearance Urine Clear; Color Urine Yellow; Glucose Urine UA Negative (Negative); Leukocyte Esterase Urine Negative (Negative); Nitrite Urine Negative (Negative); Specific Gravity - Urine 1.025 (1.005-1.025); Urine Blood Negative (Negative); Urine Ketones Negative (Negative); Urine Protein Negative (Neg-Trace)
== END 2022-12-01 16:23 | disposition home or self-care (01) ==
LOC: HO.LAB 16:22
PROVIDERS: PCP Internal Medicine; Visit Provider Internal Medicine
DX: Z00.00 Encounter for general adult medical examination without abnormal findings (principal); J98.8 Other specified respiratory disorders; Z20.822 Contact with and (suspected) exposure to COVID-19
CPT/HCPCS: 0241U; 81003

== ENCOUNTER 2022-12-11 08:47 | Outpatient (REF) | payer OTHER, SELFPAY | END 2022-12-11 08:48 | disposition home or self-care (01) | LOC: HO.NEURO 08:47 | PROVIDERS: PCP Internal Medicine; Visit Provider Internal Medicine | DX: R20.2 Paresthesia of skin (principal) | CPT/HCPCS: 95886; 95909 ==

== ENCOUNTER → 2022-12-11 08:50 | Outpatient (BNV) | payer OTHER, SELFPAY | PROVIDERS: PCP Internal Medicine; Visit Provider Physical Medicine & Rehabilitation | DX: G62.89 Other specified polyneuropathies (principal) | CPT/HCPCS: 95886; 95909 ==

== ENCOUNTER 2022-12-18 15:58 | Outpatient (AMB) | payer OTHER, SELFPAY ==
[2022-12-18 16:04] VITALS: BP 140/66; PULSE 71; BMI 42.9
--- NOTE | 2022-12-18 16:04 | MHC.OFFVIS ---
Intake Vital Signs 12/18/22 16:04 Height 5 ft 8 in Weight 282 lb 3.067 oz BMI 42.9 BP 140/66 H Blood Pressure Location Lt brachial Position Sitting Pulse 71 Intake Visit Reasons: Viral Hepatitis Intake Note: Ludwin presents in the office for Viral Hepatitis. CC: He states that he is not having any symptoms. 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 Hosp admission 11/18-: P/w RUQ colicky pain of 1 day duration reminiscent of acute cholecystitis pain from Mar 2022 and was found to have elevated LFTs with bili- 1.7, AST 838, ALT 572, alk phos: 176. Imaging US on 11/18 with dilated bile duct to 8 mm however by the time of MRCP on 11/19 had decreased to 4 mm without any CBD stone. LFTs also decreased significantly over 48 hours with discharge LFTs T bili 0.6, AST 183, ALT 514 and ALP 163. 12/18/22: Reports abd pain and nausea had relieved within hours of coming to the hospital. No recurrence of pain since then. Feels back to baseline. Aware of baseline dx of fatty liver. Metabolic risk factors include BMI 42, dyslipidemia and prediabetes. Reports drinking only 2-3 times a year. In terms of bariatric procedures, duodenal switch noted in problem list but pt reports, he was initially scheduled for the switch but when he was seen in follow up, it was clarified that underwent revision of his sleeve. [facility] Medical History Morbid obesity with BMI of 40.0-44.9, adult Cholecystitis Obesity (BMI 30-39.9) Vitamin D deficiency Frequent loose stools Diarrhea due to malabsorption Surgical History History of laparoscopic cholecystectomy (03/19/22) History of gastric bypass (~04/05/20) Status post laparoscopic sleeve gastrectomy Status post gastric bypass for obesity Family History Mother Arthritis Father Parkinsons Social History Household Members: Spouse and Children Housing: House Do you presently have visiting nurse or other home services: No Alcohol intake: unknown Patient Tobacco Use Status: Never used Tobacco e-Cigarette/Vaping Use: Never Used Second Hand Smoke Exposure: No service: No Current occupational status: unemployed Cognitive needs: No Hearing needs: No Vision needs: Yes Review of Systems Const All systems reviewed & are unremarkable except as noted in HPI and below Physical Exam Vital Signs: Last Vital Signs Pulse 71 12/18/22 16:04 BP 140/66 H 12/18/22 16:04 BMI result Body Mass Index 42.9 Gen appear: NAD with central obesity HEENT: nonicteric, no cervical lymphadenopathy Chest: CTA CVS: Regular S1/S2 Abd: soft, nontender, no hepatomegaly Ext: no peripheral edema Neuro: A/Ox3, noted to move all extremities spontaneously Psych: interacting appropriately Assessment & Plan Assessment & Plan (1) Elevated LFTs: Code(s): R79.89 - Other specified abnormal findings of blood chemistry (2) Hepatocellular injury: Code(s): K76.9 - Liver disease, unspecified (3) Morbid obesity with BMI of 40.0-44.9, adult: Code(s): E66.01 - Morbid (severe) obesity due to excess calories; Z68.41 - Body mass index [BMI] 40.0-44.9, adult (4) Fatty liver: Code(s): K76.0 - Fatty (change of) liver, not elsewhere classified Plan 1. Acutely elevated LFTs: Reviewed that given overall presentation most consistent with passed CBD stone given sudden onset RUQ pain with dilated CBD to 8 mm on initial US which then normalised in caliber over 24h along with improvement in LFTs. LFTs curve slower than expected to normalise likely due to underlying fatty liver. Plan: - Recheck LFTs - anticipate these to normalise 2. Fatty liver: Likely due to MAFLD/FORRESTER. Strong counseling of control of metabolic factors marj obesity despite x2 bariatric procedures (sleeve gastrectomy followed by ??switch vs revision - records N/A). Encouraged to see bariatric medicine again for nutritional and pharmacological therapies, as well as ? candidacy for intragastric balloon. Plan: - bariatric prog referral placed - Fib 4: 0.89 even if elevated LFTs- i.e low likelihood of advanced fibrosis at this time Follow up in 4 weeks if LFTs cont to remain abnormal, otherwise PRN Orders: Orders Liver Panel 12/18/22 R79.89 - Other specified abnormal findings of blood chemistry Referrals Bariatric Surgery Referral E66.01 - Morbid (severe) obesity due to excess calories, Z68.41 - Body mass index [BMI] 40.0-44.9, adult Coding Level of Care Code Est Pt Level 4 (98233) Diagnoses Elevated LFTs R79.89 Hepatocellular injury K76.9 Morbid obesity with BMI of 40.0-44.9, adult E66.01; Z68.41 Fatty liver K76.0
== END 2022-12-18 16:29 | disposition home or self-care (01) ==
PROVIDERS: PCP Internal Medicine; Visit Provider Internal Medicine
DX: R79.89 Other specified abnormal findings of blood chemistry (principal); K76.9 Liver disease, unspecified; E66.01 Morbid (severe) obesity due to excess calories; Z68.41 Body mass index [BMI] 40.0-44.9, adult; K76.0 Fatty (change of) liver, not elsewhere classified
CPT/HCPCS: 99214

== ENCOUNTER 2022-12-18 15:58 | Outpatient (REF) | payer OTHER, SELFPAY ==
[2022-12-18 17:39] LABS: Alanine Aminotransferase 35 U/L (0-40); Albumin Level 4.2 g/dL (3.5-5.0); Alkaline Phosphatase 89 U/L (39-117); Aspartate Amino Transferase 20 U/L (5-37); Bilirubin Direct 0.1 mg/dL (0.0-0.5); Bilirubin Total 0.4 mg/dL (0.0-1.0); Total Protein 7.3 g/dL (6.5-8.0)
== END 2022-12-18 15:59 | disposition home or self-care (01) ==
LOC: HO.LAB 15:58
PROVIDERS: PCP Internal Medicine; Visit Provider Internal Medicine
DX: R79.89 Other specified abnormal findings of blood chemistry (principal); K76.9 Liver disease, unspecified; E66.01 Morbid (severe) obesity due to excess calories; K76.0 Fatty (change of) liver, not elsewhere classified; Z68.41 Body mass index [BMI] 40.0-44.9, adult
CPT/HCPCS: 36415; 80076; 99212

== ENCOUNTER 2023-01-20 15:01 | Outpatient (AMB) | payer OTHER, SELFPAY ==
--- NOTE | 2023-01-20 15:05 | A.OFFVIS_ITS ---
Intake Vital Signs 01/20/23 15:07 Height 5 ft 8 in Weight 286 lb 9.615 oz BMI 43.6 BP 135/64 Blood Pressure Location Lt brachial Position Sitting Pulse 80 Intake Visit Reasons: 4 week follow up Intake Note: Ludwin presents in the office as a 4 week follow up. CC: He states that he is not having any concerns today. Allergies No Known Allergies Allergy (Verified 03/15/23 13:12) HPI HPI Comments History of Present Illness Details This is a 37y.o M with PMH of morbid obesity with hx of sleeve gastrectomy 2015 followed by duodenal switch 2020, who was seen in house for elevated LFTs and is coming in for follow up. Hosp admission 11/18-: P/w RUQ colicky pain of 1 day duration reminiscent of acute cholecystitis pain from Mar 2022 and was found to have elevated LFTs with bili- 1.7, AST 838, ALT 572, alk phos: 176. Imaging US on 11/18 with dilated bile duct to 8 mm however by the time of MRCP on 11/19 had decreased to 4 mm without any CBD stone. LFTs also decreased significantly over 48 hours with discharge LFTs T bili 0.6, AST 183, ALT 514 and ALP 163. 12/18/22: Reports abd pain and nausea had relieved within hours of coming to the hospital. No recurrence of pain since then. Feels back to baseline. Aware of baseline dx of fatty liver. Metabolic risk factors include BMI 42, dyslipidemia and prediabetes. Reports drinking only 2-3 times a year. In terms of bariatric procedures, duodenal switch noted in problem list but pt reports, he was initially scheduled for the switch but when he was seen in follow up, it was clarified that underwent revision of his sleeve. 01/20/23: Seen in follow up elevated LFTs (see above) as well as for fatty liver. Labs from 12/18 reviewed and LFTs back to normal as anticipated. Pt also remains asymptomatic. In terms of metabolic risk factor modification for MAFLD, weight has increased even further in the last 2 months. Has not seen his previous bariatric surgeon yet for follow up and interested in seeing bariatrics here for non-invasive strategies. [facility] Medical History Morbid obesity with BMI of 40.0-44.9, adult Cholecystitis Obesity (BMI 30-39.9) Vitamin D deficiency Frequent loose stools Diarrhea due to malabsorption Surgical History History of laparoscopic cholecystectomy (03/19/22) History of gastric bypass (~04/05/20) Status post laparoscopic sleeve gastrectomy Status post gastric bypass for obesity Family History Mother Arthritis Father Parkinsons Maternal Grandfather Colon cancer Family/Other Colon cancer Social History Household Members: Spouse and Children Housing: House Do you presently have visiting nurse or other home services: No Alcohol intake: unknown Patient Tobacco Use Status: Never used Tobacco e-Cigarette/Vaping Use: Never Used Second Hand Smoke Exposure: No service: No Current occupational status: unemployed Cognitive needs: No Hearing needs: No Vision needs: Yes Review of Systems Const All systems reviewed & are unremarkable except as noted in HPI and below Physical Exam Vital Signs: Last Vital Signs Pulse 80 01/20/23 15:07 BP 135/64 01/20/23 15:07 BMI result Body Mass Index 43.6 Gen appear: NAD with central obesity HEENT: nonicteric, no cervical lymphadenopathy Chest: CTA CVS: Regular S1/S2 Abd: soft, nontender, no hepatomegaly Ext: no peripheral edema Neuro: A/Ox3, noted to move all extremities spontaneously Psych: interacting appropriately Assessment & Plan Assessment & Plan (1) Elevated LFTs: Code(s): R79.89 - Other specified abnormal findings of blood chemistry (2) Fatty liver: Code(s): K76.0 - Fatty (change of) liver, not elsewhere classified (3) Morbid obesity with BMI of 40.0-44.9, adult: Code(s): E66.01 - Morbid (severe) obesity due to excess calories; Z68.41 - Body mass index [BMI] 40.0-44.9, adult (4) History of gastric bypass: Onset Date: ~04/05/20 Comment: conversion of gastric sleeve to [place] single anastomosis duodenal switch - Dr. Chong ([facility]) Code(s): Z98.84 - Bariatric surgery status Plan 1. Acutely elevated LFTs - resolved. Reviewed that given overall presentation most consistent with passed CBD stone given sudden onset RUQ pain with dilated CBD to 8 mm on initial US which then normalised in caliber over 24h along with improvement in LFTs. 2. Fatty liver: Does have underlying fatty liver however likely due to MAFLD/FORRESTER. Again reviewed weight control and counseling of control of other metabolic factors marj such as prediabetes, HTN, HLD. He reports previous hx of x2 bariatric procedures (sleeve gastrectomy followed by ??switch vs revision - records N/A). He was reminded to call the [facility] bariatrics office to make an appt as marj interested in intragastric balloon. Plan: - bariatric prog referral pending - Since has low Fib-4 of 0.59 low suspicion for advanced fibrosis - will be discharged back to PCP's care with recommendation to check lfts periodically and to refer back to GI for progression of liver disease or for any other concerns Coding Level of Care Code Est Pt Level 4 (24279) Diagnoses Elevated LFTs R79.89 Fatty liver K76.0 Morbid obesity with BMI of 40.0-44.9, adult E66.01; Z68.41 History of gastric bypass Z98.84
[2023-01-20 15:07] VITALS: BP 135/64; PULSE 80; BMI 43.6
== END 2023-01-20 16:45 | disposition home or self-care (01) ==
PROVIDERS: PCP Internal Medicine; Visit Provider Internal Medicine
DX: R79.89 Other specified abnormal findings of blood chemistry (principal); K76.0 Fatty (change of) liver, not elsewhere classified; E66.01 Morbid (severe) obesity due to excess calories; Z68.41 Body mass index [BMI] 40.0-44.9, adult; Z98.84 Bariatric surgery status
CPT/HCPCS: 99214

== ENCOUNTER → 2023-01-20 15:01 | Outpatient (BNVA) | payer OTHER, SELFPAY | PROVIDERS: PCP Internal Medicine; Visit Provider Internal Medicine | DX: K76.0 Fatty (change of) liver, not elsewhere classified (principal); R79.89 Other specified abnormal findings of blood chemistry; E66.01 Morbid (severe) obesity due to excess calories; Z98.84 Bariatric surgery status; Z68.41 Body mass index [BMI] 40.0-44.9, adult | CPT/HCPCS: 99212 ==

== ENCOUNTER 2023-03-15 12:41 | Outpatient (AMB) | payer OTHER, SELFPAY ==
[2023-03-15 12:43] VITALS: BP 140/90; PULSE 79; O2SAT 96; BMI 43.9
--- NOTE | 2023-03-15 12:43 | MHC.PC.OV ---
Vital Signs 03/15/23 12:43 Height 5 ft 8 in Weight 289 lb BMI 43.9 BP 140/90 H Blood Pressure Location Lt brachial Position Sitting Pulse 79 Pulse Source Pulse Oximeter Pulse Oximetry (%) 96 Oxygen Delivery Method Room Air Intake Visit Reasons: DM, arthralgia Manager Risk Management Required: No Accompanied by: Self / Same As Patient Allergies No Known Allergies Allergy (Verified 03/15/23 13:12) Medication List - Last Reconciled 03/15/23 by Rajan Clark MD blood sugar diagnostic As directed cholecalciferol (vitamin D3) 50 mcg PO DAILY 90 days ibuprofen 800 mg PO Q8H PRN 30 days Tobacco use date assessed: 03/15/23 Dental Screening Dental Screen Date: 03/15/23 Did you have a dental visit in the last 12 months?: No Did you have a dental problem in the last 6 months where you did not have access to dental care?: No Was dental information given to patient?: No HPI DM, arthralgia HPI Details Patient comes in today for his follow up visit States that he has not been feeling good for the past 5 days - has had increased sinus congestion and sore throat for the past few days and started coughing a couple of days ago States that he coughs up thick greenish phlegm often lately and relates (+) on and off headaches lately - thinks that he may have a sinus infection Has also been experiencing recurrent sharp upper back pain (in between his shoulder blades) lately and also recurrent pains shooting down his arms on both sides States that he does a lot of heavy lifting at work and is concerned that he may now have some upper back problems as a result Also relates increased pain in his right shoulder lately and feels that his shoulder sometimes gives out on him; reports (+) left shoulder pain at times as well He denies any fever or dizziness Denies any chest pains, no increased SOB No nausea/vomiting, no abdominal pain No change in bowel habits noted Adds that he also recently felt a lump over his left breast area and recalls being advised not too long ago that someone in his family tested positive for a gene that increases the family's risks for breast cancer and would like to get this checked out further [facility] Medical History Morbid obesity with BMI of 40.0-44.9, adult Cholecystitis Obesity (BMI 30-39.9) Vitamin D deficiency Frequent loose stools Diarrhea due to malabsorption Surgical History History of laparoscopic cholecystectomy (03/19/22) History of gastric bypass (~04/05/20) Status post laparoscopic sleeve gastrectomy Status post gastric bypass for obesity Family History Mother Arthritis Father Parkinsons Maternal Grandfather Colon cancer Family/Other Colon cancer Social History Household Members: Spouse and Children Housing: House Do you presently have visiting nurse or other home services: No Alcohol intake: unknown Patient Tobacco Use Status: Never used Tobacco e-Cigarette/Vaping Use: Never Used Second Hand Smoke Exposure: No service: No Current occupational status: unemployed Cognitive needs: No Hearing needs: No Vision needs: Yes Questionnaire PHQ-9 Over the last 2 weeks, how often have you been bothered by any of the following problems? 1. Little interest or pleasure in doing things: not at all 2. Feeling down, depressed, or hopeless: not at all 3. Trouble falling or staying asleep, or sleeping too much: not at all 4. Feeling tired or having little energy: not at all 5. Poor appetite or overeating: not at all 6. Feeling bad about yourself - or that you are a failure or have let yourself or your family down: not at all 7. Trouble concentrating on things, such as reading the newspaper or watching television: not at all 8. Moving or speaking so slowly that other people could have noticed. Or the opposite - being so fidgety or restless that you have been moving around a lot more than usual: not at all 9. Thoughts that you would be better off or of hurting yourself in some way: not at all Total score: 0 Depression Screening Interpretation: Negative Depression Screening Done: Yes 46710 - PHQ-9 Billing: Yes Source: Developed by Drs. Yosef Johnson, Christiana Yepez, Salinas Morgan and colleagues, with an educational caren from [employer]. Thrive Questionnaire Date Thrive assessed: 03/15/23 I am a: Patient What is your living situation today?: I have a steady place to live Within the past 12 months, did the food you bought not last and you didn't have the money to get more?: Never true Within the past 12 months, did you worry whether your food would run out before you got money to buy more?: Never true Do you have trouble paying for medicines?: No Do you have trouble getting transportation to medical appointments?: No Do you have trouble paying your heating and electricity bill?: No Do you have trouble taking care of your child, family member or friend?: No Do you have trouble with day-to-day activities such as bathing, preparing meals, shopping, managing finances, etc.?: No Are you currently unemployed and looking for a job?: No Are you interested in more education?: No Please select the resources that you would like help with: None Currently or been in a relationship where the following occur: no concerns reported AUDIT C Alcohol Use Questionnaire (AUDIT-C) 1. How often do you have a drink containing alcohol?: Monthly or less 2. How many drinks containing alcohol do you have on a typical day when you are drinking?: 1 or 2 3. How often do you have six or more drinks on one occasion?: Less than monthly Total Score: 2 Score Reviewed/Action Taken: Yes TODD-7 AMB Questionnaire TODD-7 Date TODD - 7 assessed: 03/15/23 Feeling nervous, anxious, or on edge: 0 = Not at all Not being able to stop or control worryin = Not at all Worrying too much about different things: 0 = Not at all Trouble relaxin = Not at all Being so restless that it is hard to sit still: 0 = Not at all Becoming easily annoyed or irritable: 0 = Not at all Feeling afraid as if something awful might happen: 0 = Not at all Total TODD-7 score (0-4 normal; 5-9 mild; 10-14 moderate; 15-21 severe): 0 Source: Developed by Drs. Yosef Johnson, Christiana Yepez, Salinas Morgan and colleagues, with an educational caren from [employer]. Review of Systems Const Denies chills, Reports difficulty sleeping (at times), Reports fatigue, Denies fever(s), Reports headache(s) (on and off) and Denies weakness ENT Denies dysphagia, Denies dizziness, Denies otalgia, Reports headache(s) (on and off), Reports nasal congestion (increased), Denies neck pain, Denies odynophagia, Reports sinus pain and Reports sore throat (mild) Card Denies chest pain, Denies rapid heart rate, Denies irregular heart rhythm, Denies palpitations and Denies dyspnea Resp Reports chest congestion, Reports cough (recurrent; coughs up thick greenish phlegm at times), Denies dyspnea and Denies wheezing GI Denies abdominal pain, Denies constipation, Denies dysphagia, Denies heartburn, Denies diarrhea, Denies nausea, Denies odynophagia and Denies vomiting Denies hematuria, Denies difficulty urinating, Denies dysuria and Denies urinary frequency Musc Reports back pain (over the upper back, recurrent, sharp), Reports arthralgias (involving multiple joints, especially over the right shoulder lately), Reports joint swelling (on and off, especially in both hands), Denies neck pain and Reports radiating pain into limb (into both arms at times) Skin/Breast Reports breast mass (over the left breast at the 12 o'clock position) and Denies rash Neuro Denies dizziness, Reports headache(s) (on and off), Reports paresthesias (over both lower extremities) and Denies weakness Endo Reports fatigue and Denies palpitations Aller/Immun Denies wheezing Physical exam (Primary Care) Vital Signs: Last Vital Signs Pulse 79 03/15/23 12:43 BP 140/90 H 03/15/23 12:43 Pulse Ox 96 03/15/23 12:43 Oxygen Delivery Method Room Air 03/15/23 12:43 BMI result Body Mass Index 43.9 Tobacco/Smoking Status: Tobacco use Status Tobacco use date assessed 03/15/23 03/15/23 12:46 Patient Tobacco Use Status Never used Tobacco 03/15/23 12:46 e-Cigarette/Vaping Use Never Used 03/15/23 12:46 PHQ-9: PHQ-9 Score PHQ-9: Total score 0 03/15/23 12:46 Depression Screening Interpretation: Negative Thrive Assessment: Date of Thrive Assessment Date Thrive assessed 03/15/23 03/15/23 12:46 Currently or been in a relationship where the following occur: no concerns reported Const General: no acute distress and alert HENMT Ears: TM's normal bilaterally and EAC's normal Throat: Yes tonsils normal (no TP congestion) and Yes posterior oropharynx abnormal (increased erythema of the posterior pharynx) Neck Neck: Yes no lymphadenopathy and Yes supple Thyroid: Thyroid normal Chest Other: (+) small, non-tender, palpable lump at the 12 o'clock position on the left breast Resp Auscultation: no crackles, no rales, rhonchi (scattered) throughout, no wheezes and bronchial breath sounds bilateral Cardio Rate: regular rate Rhythm: regular rhythm Heart sounds: no murmurs GI Palpation (GI): Soft to palpation and nontender Auscultation: normal bowel sounds General: Yes no CVA tenderness Back/Spine/Pelvis Back: no CVA tenderness Cervical Spine: Cervical spine tenderness Thoracic/Lumbar Spine: thoracic spinal tenderness and No lumbar spinal tenderness Skin Rashes: no rashes Extrem Other: (+) bilateral shoulder and elbow tenderness but with normal ROM of both shoulders and elbows; (+) tenderness noted in both hands General: Yes no clubbing, cyanosis or edema Right upper extremity: shoulder/upper arm Details: tenderness Location: of the A-C joint; no swelling Assessment and Plan Assessment & Plan (1) Bronchitis: Code(s): J40 - Bronchitis, not specified as acute or chronic Plan: Will start him on Augmentin 875 mg BID x 10 days Patient is advised to take some OTC cough/cold meds PRN for symptomatic relief (2) Breast lump on left side at 12 o'clock position: Code(s): N63.25 - Unspecified lump in the left breast, overlapping quadrants Plan: Will send him for US of the left breast for further evaluation (3) Upper back pain: Code(s): M54.9 - Dorsalgia, unspecified Plan: Will send him for thoracic spine x-rays as well as x-rays of both shoulders for further evaluation (4) Cervical radiculopathy: Code(s): M54.12 - Radiculopathy, cervical region Plan: Will also send him for cervical spine x-rays for further evaluation (5) Right shoulder pain: Code(s): M25.511 - Pain in right shoulder Qualifiers: Chronicity: unspecified Qualified Code(s): M25.511 - Pain in right shoulder Plan: Will send patient for x-rays of the right shoulder for further evaluation (6) Arthralgia: Code(s): M25.50 - Pain in unspecified joint Qualifiers: Joint pain location: unspecified Qualified Code(s): M25.50 - Pain in unspecified joint Plan: Involving multiple joints, including right knee, shoulders, elbows, hands and lower back, which he states have been going on for a while now Relates (+) Hx of RA (mother) and he is concerned that he may also have RA or some other inflammatory joint disease He was sent for labs to evaluate him for possible inflammatory joint disease or other related CTDs - have reassured him that his tests have all come back negative and that his joint pains are most likely due to osteoarthritis and tendinitis/bursitis and are likely related to the work that he does at his current job Advised that these can be managed conservatively with NSAIDs like ibuprofen as needed and also with physical therapy when appropriate (7) Diabetes mellitus type 2, controlled: Code(s): E11.9 - Type 2 diabetes mellitus without complications Qualifiers: Diabetes mellitus remote computer terminal operator insulin use: without remote computer terminal operator use Diabetes mellitus complication status: without complication Qualified Code(s): E11.9 - Type 2 diabetes mellitus without complications Plan: His HgbA1c remained normal at 5.7% when checked a few months ago; in-office HgbA1c was also previously normal at 5.6% back in June 2021 Reinforced diabetic diet Patient has not required any Rx for diabetes since his bariatric surgery (8) Vitamin D deficiency: Code(s): E55.9 - Vitamin D deficiency, unspecified Plan: Continue Vitamin D3 2000 units QD (9) Status post gastric bypass for obesity: Code(s): Z98.84 - Bariatric surgery status Plan: Continue Pantoprazole 40 mg QD; was on Ursodiol 300 mg BID in the past but he stopped taking this sometime last year Continue Multivitamins and Vitamin B complex daily as well (10) Morbid obesity with BMI of 40.0-44.9, adult: Code(s): E66.01 - Morbid (severe) obesity due to excess calories; Z68.41 - Body mass index [BMI] 40.0-44.9, adult Plan: Reinforced diet/exercise as tolerated/lose weight Plan Follow up in 4 months Orders: Orders US breast LT limited Today N63.25 - Unspecified lump in the left breast, overlapping quadrants XR thoracic spine 3V Today M54.9 - Dorsalgia, unspecified XR cervical spine 3V Today M54.12 - Radiculopathy, cervical region XR shoulder RT min 2V Today M25.511 - Pain in right shoulder, M54.12 - Radiculopathy, cervical region XR shoulder LT min 2V Today M54.12 - Radiculopathy, cervical region Medications: New amoxicillin-pot clavulanate 875-125 mg 1 tab PO BID 10 days 20 tabs 0RF Coding Level of Care Code Est Pt Level 4 (88970) Diagnoses Bronchitis J40 Breast lump on left side at 12 o'clock position N63.25 Upper back pain M54.9 Cervical radiculopathy M54.12 Right shoulder pain, unspecified chronicity M25.511 Chronicity: unspecified Arthralgia, unspecified joint M25.50 Joint pain location: unspecified Controlled type 2 diabetes mellitus without complication, without long-term current use of insulin E11.9 Diabetes mellitus remote computer terminal operator insulin use: without remote computer terminal operator use Diabetes mellitus complication status: without complication Vitamin D deficiency E55.9 Status post gastric bypass for obesity Z98.84 Morbid obesity with BMI of 40.0-44.9, adult E66.01; Z68.41
== END 2023-03-15 13:31 | disposition home or self-care (01) ==
PROVIDERS: PCP Internal Medicine; Visit Provider Internal Medicine
DX: E11.9 Type 2 diabetes mellitus without complications (principal); E66.01 Morbid (severe) obesity due to excess calories; Z68.41 Body mass index [BMI] 40.0-44.9, adult; J40 Bronchitis, not specified as acute or chronic; N63.25 Unspecified lump in the left breast, overlapping quadrants; M25.511 Pain in right shoulder; M54.9 Dorsalgia, unspecified; M54.12 Radiculopathy, cervical region; M25.50 Pain in unspecified joint; E55.9 Vitamin D deficiency, unspecified; Z98.84 Bariatric surgery status
CPT/HCPCS: 99214

== ENCOUNTER 2023-03-15 13:42 | Outpatient (REF) | payer OTHER, SELFPAY ==
--- NOTE | ~2023-03-15 | XR_ITS ---
EXAMINATION: XR SHOULDER, LEFT CLINICAL INFORMATION: Radiculopathy with shoulder pain COMPARISON: None available. TECHNIQUE: AP external rotation, Grashey, scapular Y, and axillary views of the left shoulder. FINDINGS: The bones and soft tissues are normal. No fracture. Glenohumeral and acromioclavicular alignment is anatomic with normal joint space. No abnormal soft tissue calcifications. XR/XR shoulder LT min 2V IMPRESSION: Normal left shoulder.
--- NOTE | ~2023-03-15 | XR_ITS ---
EXAMINATION: XR SHOULDER, RIGHT CLINICAL INFORMATION: Radiculopathy with shoulder pain COMPARISON: None available. TECHNIQUE: AP external rotation, Grashey, scapular Y, and axillary views of the right shoulder. FINDINGS: The bones and soft tissues are normal. No fracture. Glenohumeral and acromioclavicular alignment is anatomic with normal joint space. No abnormal soft tissue calcifications. XR/XR shoulder RT min 2V IMPRESSION: Normal right shoulder.
--- NOTE | ~2023-03-15 | XR_ITS ---
EXAMINATION: XR THORACIC SPINE CLINICAL INFORMATION: Dorsalgia COMPARISON: None available. TECHNIQUE: 3 views of the thoracic spine were obtained. FINDINGS: There is no fracture or bone destruction seen and the vertebral alignment is normal. There is no disc space narrowing. There is no abnormality of the paraspinal soft tissues. XR/XR thoracic spine 3V IMPRESSION: Unremarkable examination.
--- NOTE | ~2023-03-15 | XR_ITS ---
EXAMINATION: XR CERVICAL SPINE CLINICAL INFORMATION: Cervical radiculopathy COMPARISON: None available. TECHNIQUE: 3 views of the cervical spine were obtained. FINDINGS: There is straightening of cervical lordosis without intervertebral disc space narrowing or subluxations. Soft tissues unremarkable. XR/XR cervical spine 3V IMPRESSION: Most likely muscle spasm with straightening of cervical lordosis
== END 2023-03-15 13:43 | disposition home or self-care (01) ==
LOC: HO.XRAY 13:42
PROVIDERS: PCP Internal Medicine; Visit Provider Internal Medicine
DX: M54.12 Radiculopathy, cervical region (principal); M54.9 Dorsalgia, unspecified; M25.511 Pain in right shoulder; M25.512 Pain in left shoulder
CPT/HCPCS: 72040; 72072; 73030

== ENCOUNTER 2023-04-06 10:43 | Outpatient (REF) | payer OTHER, SELFPAY ==
--- NOTE | ~2023-04-06 | US_ITS ---
EXAMINATION: MM DIAGNOSTIC DIGITAL BREAST TOMOSYNTHESIS, BILATERAL US BREAST LIMITED, LEFT MAMMOGRAPHY: CLINICAL INFORMATION: 38-year-old male, unspecified and lump left breast approximate 10:00 axis periareolar. Patient reports positive genetic family history for increased breast cancer risk. COMPARISON: Mammography: None. Baseline exam. TECHNIQUE: Digital breast tomosynthesis is performed in both the craniocaudal and mediolateral oblique views along with computer-aided detection (CAD). Synthesized 2D images are generated from the tomosynthesis. In addition a full-field left mediolateral view was obtained. FINDINGS: The breasts are almost entirely fatty (ACR BI-RADS breast composition Category a). There is mild bilateral retroareolar gynecomastia. There is a right sided intramammary lymph node with small fatty notch in the anterior right breast approximately 10-11 o'clock position. This is benign. There is no additional mammographic abnormality in either breast. No mammographic correlate is seen adjacent to the marker in the left breast placed at the approximate 10:00 axis periareolar. No skin or axillary abnormalities noted. ULTRASOUND: CLINICAL INFORMATION: As above. Palpable lump left breast 10:00 periareolar. COMPARISON: None TECHNIQUE: Targeted sonographic evaluation was performed using a high frequency linear transducer. Attention was given to the 10:00 axis left breast in the region of palpable concern. Selected archived documentation. FINDINGS: LEFT BREAST: There is a primarily fatty tissue present. No suspicious mass is seen. There is no pathologic acoustic shadowing. There is no cystic abnormality. There is no edema within the soft tissue planes or skin thickening. No ultrasound correlate to the region of palpable concern is evident. US/US breast LT limited mamm only IMPRESSION: There are no findings suspicious for malignancy in either breast. There is mild bilateral gynecomastia incidentally noted. There is no ultrasonographic or mammographic correlate to the focus of palpable concern in the superior left periareolar breast. Recommend clinical management. OVERALL ASSESSMENT: Mammography: BI-RADS 2 - Benign Findings Ultrasound: BI-RADS 2 - Benign Findings RECOMMENDATION: 1. Patient should be managed based on the clinical impression. Decision to proceed with biopsy should be based on clinical grounds and degree of clinical concern.
== END 2023-04-06 10:44 | disposition home or self-care (01) ==
LOC: HO.MAMMO 10:43
PROVIDERS: PCP Internal Medicine; Visit Provider Internal Medicine
DX: N63.25 Unspecified lump in the left breast, overlapping quadrants (principal)
CPT/HCPCS: 76642; 77062; 77066

== ENCOUNTER → 2023-04-06 11:00 | Outpatient (BNV) | payer OTHER, SELFPAY | PROVIDERS: PCP Internal Medicine; Visit Provider Radiology Diagnostic Radiology | DX: N63.22 Unspecified lump in the left breast, upper inner quadrant (principal) | CPT/HCPCS: 76642; 77062; 77066 ==

== ENCOUNTER 2023-07-14 14:58 | Outpatient (AMB) | payer OTHER, SELFPAY ==
[2023-07-14 14:59] VITALS: BP 126/74; PULSE 73; O2SAT 97; BMI 44.7
--- NOTE | 2023-07-14 14:59 | A.OFFPC_ITS ---
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 Allergies No Known Allergies Allergy (Verified 07/14/23 15:41) Medication List - Last Reconciled 07/14/23 by Rajan Clark MD blood sugar diagnostic As directed cholecalciferol (vitamin D3) 50 mcg PO DAILY 90 days ibuprofen 800 mg PO Q8H PRN 30 days Tobacco use date assessed: 07/14/23 Dental Screening Dental Screen Date: 07/14/23 Did you have a dental visit in the last 12 months?: No Did you have a dental problem in the last 6 months where you did not have access to dental care?: No HPI 4mth f/u HPI Details Patient comes in today for his follow up visit States that he is still experiencing increased pain over his right shoulder and arm/right neck area lately He had x-rays of the cervical spine and both shoulders done back in March 2023 that all came out normal Needs his Ibuprofen Rx refilled States that he feels okay otherwise He denies any headaches or dizziness Denies any chest pains, no SOB No nausea/vomiting, no abdominal pain No change in bowel habits noted [facility] Medical History Morbid obesity with BMI of 40.0-44.9, adult Cholecystitis Obesity (BMI 30-39.9) Vitamin D deficiency Frequent loose stools Diarrhea due to malabsorption Surgical History History of laparoscopic cholecystectomy (03/19/22) History of gastric bypass (~04/05/20) Status post laparoscopic sleeve gastrectomy Status post gastric bypass for obesity Family History Mother Arthritis Father Parkinsons Maternal Grandfather Colon cancer Family/Other Colon cancer Social History Household Members: Spouse and Children Housing: House Do you presently have visiting nurse or other home services: No Alcohol intake: unknown Patient Tobacco Use Status: Never used Tobacco e-Cigarette/Vaping Use: Never Used Second Hand Smoke Exposure: No service: No Current occupational status: unemployed Cognitive needs: No Hearing needs: No Vision needs: Yes Questionnaire PHQ-9 Over the last 2 weeks, how often have you been bothered by any of the following problems? 1. Little interest or pleasure in doing things: not at all 2. Feeling down, depressed, or hopeless: not at all 3. Trouble falling or staying asleep, or sleeping too much: not at all 4. Feeling tired or having little energy: not at all 5. Poor appetite or overeating: not at all 6. Feeling bad about yourself - or that you are a failure or have let yourself or your family down: not at all 7. Trouble concentrating on things, such as reading the newspaper or watching television: not at all 8. Moving or speaking so slowly that other people could have noticed. Or the opposite - being so fidgety or restless that you have been moving around a lot more than usual: not at all 9. Thoughts that you would be better off or of hurting yourself in some way: not at all Total score: 0 Depression Screening Interpretation: Negative Depression Screening Done: Yes 60277 - PHQ-9 Billing: Yes Source: Developed by Drs. Yosef Johnson, Christiana Yepez, Salinas Morgan and colleagues, with an educational caren from [employer]. Thrive Questionnaire Date Thrive assessed: 07/14/23 I am a: Patient What is your living situation today?: I have a steady place to live Within the past 12 months, did the food you bought not last and you didn't have the money to get more?: Never true Within the past 12 months, did you worry whether your food would run out before you got money to buy more?: Never true Do you have trouble paying for medicines?: No Do you have trouble getting transportation to medical appointments?: No Do you have trouble paying your heating and electricity bill?: No Do you have trouble taking care of your child, family member or friend?: No Do you have trouble with day-to-day activities such as bathing, preparing meals, shopping, managing finances, etc.?: No Are you currently unemployed and looking for a job?: No Are you interested in more education?: No Please select the resources that you would like help with: None Currently or been in a relationship where the following occur: no concerns reported THRIVE Score: 0 AUDIT C Alcohol Use Questionnaire (AUDIT-C) 1. How often do you have a drink containing alcohol?: Monthly or less 2. How many drinks containing alcohol do you have on a typical day when you are drinking?: 1 or 2 3. How often do you have six or more drinks on one occasion?: Less than monthly Total Score: 2 Score Reviewed/Action Taken: Yes TODD-7 AMB Questionnaire TODD-7 Date TODD - 7 assessed: 03/15/23 Source: Developed by Drs. Yosef Johnson, Christiana Yepez, Salinas Morgan and colleagues, with an educational caren from [employer]. Review of Systems Const Denies chills, Reports difficulty sleeping (at times), Reports fatigue, Denies fever(s), Denies headache(s) and Denies weakness ENT Denies dysphagia, Denies dizziness, Denies otalgia, Denies headache(s), Denies nasal congestion, Denies neck pain, Denies odynophagia and Denies sore throat Card Denies chest pain, Denies rapid heart rate, Denies irregular heart rhythm, Denies palpitations and Denies dyspnea Resp Denies cough, Denies dyspnea and Denies wheezing GI Denies abdominal pain, Denies constipation, Denies dysphagia, Denies heartburn, Denies diarrhea, Denies nausea, Denies odynophagia and Denies vomiting Denies hematuria, Denies difficulty urinating, Denies dysuria and Denies urinary frequency Musc Reports back pain (over the upper back, recurrent, sharp), Reports arthralgias (involving multiple joints, especially over the right shoulder lately), Reports joint swelling (on and off, especially in both hands), Denies neck pain and Reports radiating pain into limb (into both arms at times) Skin/Breast Denies rash Neuro Denies dizziness, Denies headache(s), Reports paresthesias (over both lower extremities) and Denies weakness Endo Reports fatigue and Denies palpitations Aller/Immun Denies wheezing Physical exam (Primary Care) Vital Signs: Last Vital Signs Pulse 73 05/08/24 14:59 BP 126/74 07/14/23 14:59 Pulse Ox 97 07/14/23 14:59 Oxygen Delivery Method Room Air 07/14/23 14:59 BMI result Body Mass Index 44.7 Tobacco/Smoking Status: Tobacco use Status Tobacco use date assessed 07/14/23 07/14/23 15:01 Patient Tobacco Use Status Never used Tobacco 07/14/23 15:01 e-Cigarette/Vaping Use Never Used 07/14/23 15:01 PHQ-9: PHQ-9 Score PHQ-9: Total score 0 07/14/23 15:39 Depression Screening Interpretation: Negative Thrive Assessment: Date of Thrive Assessment Date Thrive assessed 07/14/23 07/14/23 15:01 Currently or been in a relationship where the following occur: no concerns reported Const General: no acute distress and alert HENMT Ears: TM's normal bilaterally and EAC's normal Throat: Yes posterior oropharynx normal and Yes tonsils normal (no TP congestion) Neck Neck: Yes no lymphadenopathy and Yes supple Thyroid: Thyroid normal Resp Auscultation: clear to auscultation bilaterally, no crackles, no rales and no wheezes Cardio Rate: regular rate Rhythm: regular rhythm Heart sounds: no murmurs GI Palpation (GI): Soft to palpation and nontender Auscultation: normal bowel sounds General: Yes no CVA tenderness Back/Spine/Pelvis Back: no CVA tenderness Cervical Spine: Cervical spine tenderness Thoracic/Lumbar Spine: thoracic spinal tenderness and No lumbar spinal tenderness Skin Rashes: no rashes Extrem Other: (+) bilateral shoulder and elbow tenderness but with normal ROM of both shoulders and elbows; (+) tenderness noted in both hands General: Yes no clubbing, cyanosis or edema Right upper extremity: shoulder/upper arm Details: tenderness Location: of the A-C joint; no swelling Results AMB Hemoglobin A1c AMB Hemoglobin A1c 6.3 % Last Edit by CHRIS López on 07/14/23 15:16 Results Reviewed Results Reviewed: Laboratory Last Values Hgb A1c (Clinic) 6.3 % (4.0-6.0) H 07/14/23 13:21 Assessment and Plan Assessment & Plan (1) Right shoulder pain: Code(s): M25.511 - Pain in right shoulder Qualifiers: Chronicity: unspecified Qualified Code(s): M25.511 - Pain in right shoulder Plan: Right shoulder x-rays done back in March 2023 came out normal Continue Ibuprofen 800 mg Q 8 hours PRN for now Will refer him to orthopedics for further evaluation and management (2) Arthralgia: Code(s): M25.50 - Pain in unspecified joint Qualifiers: Joint pain location: unspecified Qualified Code(s): M25.50 - Pain in unspecified joint Plan: Involving multiple joints, including right knee, shoulders, elbows, hands and lower back, which he states have been going on for a while now Relates (+) Hx of RA (mother) and he is concerned that he may also have RA or some other inflammatory joint disease He was sent for labs to evaluate him for possible inflammatory joint disease or other related CTDs - have reassured him that his tests have all come back negative and that his joint pains are most likely due to osteoarthritis and tendinitis/bursitis and are likely related to the work that he does at his current job He was advised that these can continue to be managed conservatively with NSAIDs like ibuprofen as needed and also with physical therapy when appropriate (3) Diabetes mellitus type 2, controlled: Code(s): E11.9 - Type 2 diabetes mellitus without complications Qualifiers: Diabetes mellitus terminal system operator insulin use: without terminal system operator use Diabetes mellitus complication status: without complication Qualified Code(s): E11.9 - Type 2 diabetes mellitus without complications Plan: In-office HgbA1c done today is at 6.3% Have advised patient that this is the highest it has been over the past few years - his HgbA1c was normal at 5.7% when checked a few months ago; in-office HgbA1c was also previously normal at 5.6% back in June 2021 Reinforced diabetic diet Patient has not required any Rx for diabetes since his bariatric surgery so far and we can hopefully continue to keep it that way IF he can get his HgbA1c back down to under 6.0% (4) Vitamin D deficiency: Code(s): E55.9 - Vitamin D deficiency, unspecified Plan: Continue Vitamin D3 2000 units QD (5) Status post gastric bypass for obesity: Code(s): Z98.84 - Bariatric surgery status Plan: Continue Pantoprazole 40 mg QD; was on Ursodiol 300 mg BID in the past but he stopped taking this sometime last year Continue Multivitamins and Vitamin B complex daily as well (6) Morbid obesity with BMI of 40.0-44.9, adult: Code(s): E66.01 - Morbid (severe) obesity due to excess calories; Z68.41 - Body mass index [BMI] 40.0-44.9, adult Plan: Reinforced diet/exercise as tolerated/lose weight Plan To return in December 2023 for his annual physical examination He is reminded to get his labs done 1 to 2 weeks before his appointment in December 2023 Orders: Orders Comprehensive Humphrey. Panel Fast 11/27/23 E78.00 - Pure hypercholesterolemia, unspecified, Z00.00 - Encounter for general adult medical examination without abnormal findings TSH reflex Free T4 11/27/23 E78.00 - Pure hypercholesterolemia, unspecified, Z00.00 - Encounter for general adult medical examination without abnormal findings UA CC w/rflx Micro + Cult 11/27/23 R30.0 - Dysuria, Z00.00 - Encounter for general adult medical examination without abnormal findings Hemoglobin A1c 11/27/23 E11.9 - Type 2 diabetes mellitus without complications, Z00.00 - Encounter for general adult medical examination without abnormal findings AMB Hemoglobin A1c 07/14/23 E11.9 - Type 2 diabetes mellitus without complications Complete Blood Count Auto Diff 11/27/23 D64.9 - Anemia, unspecified, Z00.00 - Encounter for general adult medical examination without abnormal findings Lipid Panel 11/27/23 E78.00 - Pure hypercholesterolemia, unspecified, Z00.00 - Encounter for general adult medical examination without abnormal findings Referrals Orthopedics Referral M25.511 - Pain in right shoulder, M79.601 - Pain in right arm Medications: Refilled ibuprofen Take with food 800 mg PO Q8H 30 days PRN 90 tabs 1RF pain Coding Level of Care Code Est Pt Level 4 (52040) Diagnoses Right shoulder pain, unspecified chronicity M25.511 Chronicity: unspecified Arthralgia, unspecified joint M25.50 Joint pain location: unspecified Controlled type 2 diabetes mellitus without complication, without long-term current use of insulin E11.9 Diabetes mellitus terminal system operator insulin use: without terminal system operator use Diabetes mellitus complication status: without complication Vitamin D deficiency E55.9 Status post gastric bypass for obesity Z98.84 Morbid obesity with BMI of 40.0-44.9, adult E66.01; Z68.41
== END 2023-07-14 15:52 | disposition home or self-care (01) ==
PROVIDERS: PCP Internal Medicine; Visit Provider Internal Medicine
DX: E11.9 Type 2 diabetes mellitus without complications (principal)
CPT/HCPCS: 83036; 99214

== ENCOUNTER 2023-08-12 10:17 | Outpatient (AMB) | payer OTHER, SELFPAY ==
--- NOTE | 2023-08-12 10:27 | MHC.OFFVIS ---
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 Patient reports about a year ago he had an injury at work, however he was not treated. Currently his pain radiates into his neck and down his arm to his wrist. He has stabbing sensation with ROM, such as lifting his arm up. He has soreness with lifting objects as well as weakness. States discomfort with activity. Finds some relief with ibuprofen. 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 He currently states pain in his shoulder that radiates into his neck and down to his arm and wrist. His pain is aggravated in the morning and occasionally at night. He also experiences a stabbing sensation with ROM such as lifting his arm up. He has weakness and soreness with lifting objects as well as discomfort with activities. He denies any numbness or tingling. He finds mild relief with ibuprofen. [facility] Medical History Morbid obesity with BMI of 40.0-44.9, adult Cholecystitis Obesity (BMI 30-39.9) Vitamin D deficiency Frequent loose stools Diarrhea due to malabsorption Surgical History History of laparoscopic cholecystectomy (03/19/22) History of gastric bypass (~04/05/20) Status post laparoscopic sleeve gastrectomy Status post gastric bypass for obesity Family History Mother Arthritis Father Parkinsons Maternal Grandfather Colon cancer Family/Other Colon cancer Social History Household Members: Spouse and Children Housing: House Do you presently have visiting nurse or other home services: No Alcohol intake: unknown Patient Tobacco Use Status: Never used Tobacco e-Cigarette/Vaping Use: Never Used Second Hand Smoke Exposure: No service: No Current occupational status: unemployed Cognitive needs: No Hearing needs: No Vision needs: Yes Review of Systems Const All systems reviewed & are unremarkable except as noted in HPI and below Physical Exam Const General: cooperative, healthy appearing, comfortable, no acute distress, well developed and alert Orientation/consciousness: patient oriented x3 HEENT Head: Yes normal to inspection, Yes normocephalic and Yes atraumatic Eyes General: appearance normal, both eyes and all related structures Resp Effort & Inspection: normal respiratory effort and able to speak in complete sentences Cardio Rate: regular rate Peripheral pulses: Peripheral pulses 2+ throughout GI Palpation (GI): Soft to palpation Skin Lesions: no lesions Rashes: no rashes Neuro General: patient oriented x3 Extrem Other: Right shoulder normal to inspection. Tenderness over the proximal tendon region of the shoulder. Forward flexion to 175, external rotation to 90, internal rotation to S1. Weakness and pain with RTC strength testing. Positive O'Briens. NVI. Results Reviewed Results Reviewed: Xrays of the right shoulder obtained previously show mild ac joint oa Assessment & Plan Assessment & Plan (1) Biceps tendonitis on right: Code(s): M75.21 - Bicipital tendinitis, right shoulder Category: Medical (2) Biceps tendonitis on right: Code(s): M75.21 - Bicipital tendinitis, right shoulder Category: Medical (3) Myofascial pain on right side: Code(s): M79.18 - Myalgia, other site Category: Medical Plan We discussed options which include corticosteroid injection which he would like to hold off at this time. We will get him into physical therapy to work on ROM and postural train along with RTC strengthening. An MRI with arthrogram of the right shoulder was ordered to further evaluate the RTC and surrounding structures. I will see him back once the scan is complete. Orders: Orders MR shoulder RT w con Today M25.311 - Other instability, right shoulder, M75.21 - Bicipital tendinitis, right shoulder PT Evaluation and Treatment Today M75.21 - Bicipital tendinitis, right shoulder, M79.18 - Myalgia, other site Patient Instructions: Scribed for Israel Montes PA-C, by Daniel Ford medical delivery driver, on 08/12/2023 at 10:00 AM EST.? I, Israel Montes PA-C, have personally reviewed and agree with the information entered by the scribe. Coding Level of Care Code New Pt Level 3 (41673) Diagnoses Biceps tendonitis on right M75.21 Myofascial pain on right side M79.18
== END 2023-08-12 11:01 | disposition home or self-care (01) ==
LOC: HO.HOS 10:17
PROVIDERS: PCP Internal Medicine; Visit Provider Physician Assistant
DX: M75.21 Bicipital tendinitis, right shoulder (principal); M79.18 Myalgia, other site
CPT/HCPCS: 99203

== ENCOUNTER → 2023-08-12 10:17 | Outpatient (BNVA) | payer OTHER, SELFPAY | PROVIDERS: PCP Internal Medicine; Visit Provider Physician Assistant | DX: M75.21 Bicipital tendinitis, right shoulder (principal); M79.18 Myalgia, other site | CPT/HCPCS: 99202 ==

== ENCOUNTER 2023-09-21 09:38 | Outpatient (AMB) | payer OTHER, SELFPAY ==
--- NOTE | 2023-09-21 09:42 | A.OFFVIS_ITS ---
Vital Signs 09/21/23 09:52 Height 5 ft 8 in Weight 294 lb BMI 44.7 Intake Visit Reasons: NewProb-Bilateral shoulder pain Intake Note: Boris 38 year old male who presents today for bilateral shoulder pain. Patient reports bilateral shoulder pain with his right shoulder being the worse. States pain with ROM. He is currently awaiting an MRI arthrogram of right shoulder. He is requesting bilateral shoulder injections in the meantime. Allergies No Known Allergies Allergy (Verified 09/21/23 09:45) HPI HPI NewProb-Bilateral shoulder pain: Details: 38-year-old male who presents to the office today for an evaluation of bilateral shoulder pain. He states he has pain in his bilateral shoulder that is worse on his right shoulder. His pain is aggravated with ROM, lifting, reaching and with sleeping and laying on his arms. He is interested in having a cortisone injection. [facility] Medical History Morbid obesity with BMI of 40.0-44.9, adult Cholecystitis Obesity (BMI 30-39.9) Vitamin D deficiency Frequent loose stools Diarrhea due to malabsorption Surgical History History of laparoscopic cholecystectomy (03/19/22) History of gastric bypass (~04/05/20) Status post laparoscopic sleeve gastrectomy Status post gastric bypass for obesity Family History Mother Arthritis Father Parkinsons Maternal Grandfather Colon cancer Family/Other Colon cancer Social History Household Members: Spouse and Children Housing: House Do you presently have visiting nurse or other home services: No Alcohol intake: unknown Patient Tobacco Use Status: Never used Tobacco e-Cigarette/Vaping Use: Never Used Second Hand Smoke Exposure: No service: No Current occupational status: unemployed Cognitive needs: No Hearing needs: No Vision needs: Yes Review of Systems Const All systems reviewed & are unremarkable except as noted in HPI and below Physical Exam Vital Signs: BMI result Body Mass Index 44.7 Extrem Other: Bilateral shoulder: Normal to inspection. Tenderness over the bicipital groove and along the deltoid region of the shoulder. Forward flexion to 175, external rotation to 90, internal rotation to S1. 5/5 RTC strength. Negative Mackay and cross body abduction. NVI. Office Procedures Joint Injection/Drain Joint Injection/Drain Primary Site: right shoulder Secondary Site: left shoulder Prep: site was prepped using aseptic technique, ethochloride spray was applied and injection warnings given Injected: 40 mg of, DepoMedrol, with 8 mL of, 1% plain lidocaine and in the subcromial space Approach Used: posterolateral Procedure: The patient tolerated the procedure well and there was some relief with the local anesthesia Coding 50219 - Glenohumeral/Tronchanteric Bursa/Intraarticular Procedure code (CPT) selection complete Assessment & Plan Assessment & Plan (1) Biceps tendonitis on right: Code(s): M75.21 - Bicipital tendinitis, right shoulder Category: Medical (2) Left shoulder tendinitis: Code(s): M77.8 - Other enthesopathies, not elsewhere classified Category: Medical Plan We discussed options today, which include steroid injection. The patient did consent to move forward with the bilateral shoulder injection, which was tolerated well. I recommended rest, ice, and elevation and OTC anti- inflammatories as needed for discomfort. If symptoms persist or worsen over the next 6-8 weeks, patient will contact the office, otherwise follow-up as needed. He is pending and MRI arthrogram of his right shoulder. Patient Instructions: Scribed for Israel Montes PA-C, by Daniel Ford er medical technician, on 09/21/2023 at 9:45 AM EST.? I, Israel Montes PA-C, have personally reviewed and agree with the information entered by the scribe. Coding Level of Care Code Est Pt Level 3 (39132) Diagnoses Biceps tendonitis on right M75.21 Left shoulder tendinitis M77.8 CPT Codes Coding - Joint 7: 29108 - Glenohumeral/Tronchanteric Bursa/Intraarticular ([id number])
[2023-09-21 09:52] VITALS: BMI 44.7
== END 2023-09-21 10:27 | disposition home or self-care (01) ==
PROVIDERS: PCP Internal Medicine; Visit Provider Physician Assistant
DX: M75.21 Bicipital tendinitis, right shoulder (principal); M77.8 Other enthesopathies, not elsewhere classified
CPT/HCPCS: 20610; 99213

== ENCOUNTER → 2023-09-21 09:38 | Outpatient (BNVA) | payer OTHER, SELFPAY | PROVIDERS: PCP Internal Medicine; Visit Provider Physician Assistant | DX: M75.21 Bicipital tendinitis, right shoulder (principal); M77.8 Other enthesopathies, not elsewhere classified | CPT/HCPCS: 20610; 99212; J1010 ==

== ENCOUNTER 2023-11-07 08:18 | Emergency (ER) | payer OTHER, SELFPAY ==
--- NOTE | ~2023-11-07 | XR_ITS ---
EXAMINATION: XR CHEST CLINICAL INFORMATION: Productive cough COMPARISON: 11/18/2022 TECHNIQUE: 2 views of the chest were obtained. FINDINGS: The lungs are clear with no focal consolidation. No evidence of pneumothorax, pulmonary edema, or pleural effusions. The cardiomediastinal silhouette is unremarkable. No acute osseous findings. XR/XR chest 2V IMPRESSION: No acute cardiopulmonary findings. Electronically signed by: Thaddeus Galeas MD 11/07/2023 10:37 AM EDT
[2023-11-07 08:40] VITALS: BP 146/62; PULSE 67; RESP 16; TEMP 36.8; O2SAT 97; BMI 45.2
[2023-11-07 09:23] LABS: IDNOW Serial# 58CA691E; Strep A Nucleic Acid Negative (Negative)
[2023-11-07 09:30] LABS: COVID-19 Test Negative (Negative); IDNOW Serial# 6674DD1D
--- NOTE | 2023-11-07 09:39 | ED_ITS ---
HPI - General Adult General Chief complaint: Upper Respiratory Symptoms Stated complaint: ear and throat irritation Time Seen by Provider: 11/07/23 09:03 Source: patient Mode of arrival: ambulatory Limitations: no limitations History of Present Illness ED Provider: osmar waters pa-[facility] HPI narrative: 38-year-old male with pmhx significant for morbid obesity, T2DM, hepatitis, presents to the ED today for evaluation of myalgias, headache, bilateral ear discomfort, nasal congestion, sore throat and productive cough x3 days. Reports his and child have similar symptoms at home. No other sick contacts. His child does not go to daycare. Denies fever, chills, chest pain, shortness of breath or dyspnea, rash, odynophagia. Related Data Home Medications ?Medication ?Instructions ?Recorded ?Confirmed blood sugar diagnostic #10 ea 05/03/20 07/14/23 Previous Rx's ?Medication ?Instructions ?Recorded cholecalciferol (vitamin D3) 50 50 mcg PO DAILY 90 days #90 caps 11/11/21 mcg (2,000 unit) capsule ibuprofen 800 mg tablet 800 mg PO Q8H PRN pain 30 days #90 07/19/23 tabs benzocaine 15 mg-menthol 2.6 mg 1 sharon mucous membrane Q2-4H PRN 11/07/23 lozenges (Cepacol Sore Throat sore throat #16 ea (benzocaine-menthol)) benzonatate 100 mg capsule 100 mg PO BID PRN cough #20 caps 11/07/23 Allergies Allergy/AdvReac Type Severity Reaction Status Date / Time No Known Allergies Allergy Verified 11/07/23 08:43 Review of Systems Review of Systems: Constitutional: No fever, chills, fatigue, night sweats, weight changes ENT/Mouth: No ear pain, hearing loss, nasal congestion, sinus pain, rhinorrhea, +sore throat Eyes: No eye pain, swelling, redness, vision changes, discharge Cardio: No chest pain, palpitations, PARMAR, orthopnea, peripheral edema Pulm: No SOB, cough, sputum, wheezing, dyspnea, hemoptysis, +cough GI: No nausea, vomiting, hematemesis, abdominal pain, diarrhea, constipation, hematochezia, melena : No irregular bleeding, dysuria, frequency, urgency, hesitancy, hematuria, flank pain, urinary flow changes, urinary incontinence or retention MSK: No back pain, neck pain, joint pain, myalgias Skin: No lesions, rashes Neuro: No weakness, numbness, paresthesias, LOC, dizziness, +headache Psych: No anxiety/panic, depression, SI/HI, AH/VH All other systems reviewed and are negative. [facility] Past Medical History Attestation statement: The following information was validated with the patient. Source: old records reviewed and nursing notes reviewed Medical History Morbid obesity with BMI of 40.0-44.9, adult Cholecystitis Obesity (BMI 30-39.9) Vitamin D deficiency Frequent loose stools Diarrhea due to malabsorption Surgical History History of laparoscopic cholecystectomy (03/19/22) History of gastric bypass (~04/05/20) Status post laparoscopic sleeve gastrectomy Status post gastric bypass for obesity Family History Family History Mother Arthritis Father Parkinsons Maternal Grandfather Colon cancer Family/Other Colon cancer Social History Social History Household Members: Spouse and Children Housing: House Do you presently have visiting nurse or other home services: No Alcohol intake: unknown Patient Tobacco Use Status: Never used Tobacco e-Cigarette/Vaping Use: Never Used Second Hand Smoke Exposure: No Advance Directives: No Advance Directives Information Provided: Yes service: No Current occupational status: unemployed Cognitive needs: No Hearing needs: No Vision needs: Yes Physical Exam ED Vital Signs: Vital Signs - 24 hr 11/07/23 08:40 11/07/23 11:04 11/07/23 11:09 Temperature 98.2 F 98.3 F 98.3 F Pulse Rate 67 70 70 Respiratory Rate 16 14 14 Blood Pressure 146/62 H 132/80 132/80 Pulse Oximetry 97 96 96 Oxygen Delivery Method Room Air Room Air Room Air BMI result Body Mass Index 45.2 Vital signs stable General: Well appearing, in no acute distress. Skin: Warm, dry, intact. No rashes or lesions. Head: Normocephalic, atraumatic. EENT: Hearing is intact b/l. Conjunctiva clear. PERRLA. Moist mucous membranes.? Posterior oropharynx erythematous without edema. No tonsillar exudates or masses. Uvula midline. Controlling secretions and speaking in complete sentences. Neck: Supple without LAD. FROM. Trachea midline.? Cardiac: Chest wall symmetric. RRR. No MRG. No JVD. Lungs: Normal respiratory effort without accessory muscle use. CTA bilaterally. No rales, rhonchi, or wheezes.? Abdomen: Soft, non-tender, non-distended. No rebound tenderness or guarding. Positive BS x4. Back: No midline spinous or paraspinal tenderness. No step off deformity. Ext: Upper and lower extremities atraumatic, without tenderness, deformity, swelling or erythema. Full ROM throughout. Neuro: AOx3. Normal speech. Strength 5/5 intact throughout. Sensation intact to light touch. NV intact distally. Reflexes 2+ bilaterally. Ambulating with steady gait. Psych: Appropriate mood and affect. Responds appropriately to questions. Course Course Course Narrative: Patient tested positive for COVID. Educated on symptomatic treatment. Patient has remained stable throughout ED visit today. Discussed worrisome signs and symptoms and when to return to the ED. All questions answered at this time. Patient is agreeable with disposition and stable for discharge. Reevaluation(s) Reevaluation #1: 0951 -- COVID and strep swabs ordered in triage. He was tested negative for both COVID and strep. Will add on flu swab and chest x-ray to rule out pneumonia although less likely. 1100 -- patient tested negative for influenza. Chest x-ray unremarkable. Will send Cepacol throat lozenges and Tessalon Perles to pharmacy for symptomatic treatment. Likely viral upper respiratory infection. Patient has remained stable throughout ED visit today. Discussed worrisome signs and symptoms and when to return to the ED. All questions answered at this time. Patient is agreeable with disposition and stable for discharge. Medical Decision Making Medical Decision Making MDM Narrative: 38-year-old male with pmhx significant for morbid obesity, T2DM, hepatitis, presents to the ED today for evaluation of myalgias, bilateral ear discomfort, nasal congestion, sore throat and productive cough x3 days. Patient hypertensive to 146/62. Vitals otherwise WNL. Afebrile. He is nontoxic- appearing and in no acute distress. Bilateral EACs and TMs WNL. Posterior oropharynx slightly erythematous without noted edema. No tonsillar exudates or peritonsillar masses. Uvula midline. Controlling secretions and speaking in complete sentences. Lungs are CTA bilaterally. No increased effort of breathing or tripoding. Actively coughing on exam. Differential diagnosis includes viral syndrome, strep throat, headache, migraine, pneumonia, bronchitis. Unlikely ASSISTANT DEAN, retropharyngeal abscess, e piglottitis, peritonsillar abscess. Plan for viral and strep swabs, chest x-ray, re-evaluation. Differential Diagnosis Differential Diagnoses: The differential diagnosis associated with the presentation includes As above Admission/Observation Not indicated Lab Data MDM Lab Attestation statement: I reviewed the patient's lab results. As above Labs: Lab Results 11/07/23 11/07/23 Range/Units 08:55 10:05 COVID-19 (REMY) Negative (Negative) COVID-19 Clin Com See Note Influenza Type A (ARIEL) Negative (Negative) Influenza Type B (ARIEL) Negative (Negative) Influenza A & B Note See Note S. pyogenes GrpA ARIEL Negative (Negative) Independent Interpretation I performed an independent interpretation of an: Plain X-Ray Interpretation: Chest x-ray without infiltrate or consolidation, agree with radiologist's interpretation. Radiology Impression Discussion of test interpretation with radiology: I have reviewed the radiologist's reading. Radiologist Impression: EXAMINATION: XR CHEST CLINICAL INFORMATION: Productive cough COMPARISON: 11/18/2022 TECHNIQUE: 2 views of the chest were obtained. FINDINGS: The lungs are clear with no focal consolidation. No evidence of pneumothorax, pulmonary edema, or pleural effusions. The cardiomediastinal silhouette is unremarkable. No acute osseous findings. XR/XR chest 2V IMPRESSION: No acute cardiopulmonary findings. Electronically signed by: Thaddeus Galeas MD 11/07/2023 10:37 AM EDT External Record Review External record reviewed: Inpatient record Prescription Management I considered prescription management with: Other (Tessalon Perles, Cepacol throat lozenges) Social Determinants Patient?s care significantly limited by Social Determinants of Health including: Other Social Determinant of Health Critical Care Time Critical Care Time Critical Care Time: No Discharge Plan Discharge Clinical Impression: Viral upper respiratory infection Patient Disposition: Home, Self-Care Instructions: Upper Respiratory Infection (ED), Viral Syndrome (ED) Additional Instructions: You tested negative for COVID and flu. Your chest x-ray is normal. You likely have a viral upper respiratory infection that does not require treatment with antibiotics. Treatment for this is symptomatic. Take Tylenol and ibuprofen at home as needed for fevers or body aches Tessalon Perles have been sent to your pharmacy for you to take as needed for cough. Cepacol throat lozenges have been sent to your pharmacy for you to take for sore throat. Please keep both of these out of reach of children. Follow-up with PCP as needed. Return with new or worsening symptoms. In the case of an emergency call 911. Prescriptions: New benzonatate 100 mg capsule 100 mg PO BID PRN (Reason: cough) Qty: 20 0RF Cepacol Sore Throat (soila-men) 15-2.6 mg lozenge 1 sharon mucous membrane Q2-4H PRN (Reason: sore throat) Qty: 16 0RF No Action (DME) blood sugar diagnostic Strip See Rx Instructions Not Applicable DAILY Qty: 10 Rx Instructions: As directed cholecalciferol (vitamin D3) 50 mcg (2,000 unit) capsule 50 mcg PO DAILY 90 Days Qty: 90 3RF ibuprofen 800 mg tablet 800 mg PO Q8H PRN (Reason: pain) 30 Days Qty: 90 1RF Rx Instructions: Take with food Referrals: Rajan Clark MD [Primary Care Provider] - Interventions: ED Discharge Assessment Last Done: 11/07/23 11:09 Discharge Date/Time: 11/07/23 11:10 Print Language: Macedonian
[2023-11-07 10:32] LABS: IDNOW Serial# 08D9AD1C; Influenza A Negative (Negative); Influenza B2 Negative (Negative)
[2023-11-07 11:04] VITALS: BP 132/80; PULSE 70; RESP 14; TEMP 36.8; O2SAT 96
[2023-11-07 11:09] VITALS: BP 132/80; PULSE 70; RESP 14; TEMP 36.8; O2SAT 96
== END 2023-11-07 11:10 | disposition home or self-care (01) ==
PROVIDERS: Physician Assistant Medical; Emergency Provider Emergency Medicine; PCP Internal Medicine
DX: J06.9 Acute upper respiratory infection, unspecified (principal); M79.10 Myalgia, unspecified site; R51.9 Headache, unspecified; R05.9 Cough, unspecified; R07.0 Pain in throat; Z11.52 Encounter for screening for COVID-19; Z79.899 Other long term (current) drug therapy
CPT/HCPCS: 71046; 87502; 87635; 87651; 99282; 99283

== ENCOUNTER 2023-11-15 12:25 | Outpatient (AMB) | payer OTHER, SELFPAY ==
--- NOTE | 2023-11-15 12:32 | A.OFFPC_ITS ---
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 Required: No Accompanied by: Self / Same As Patient Allergies No Known Allergies Allergy (Verified 11/15/23 12:47) Medication List - Last Reconciled 11/15/23 by Rajan Clark MD blood sugar diagnostic As directed cholecalciferol (vitamin D3) 50 mcg PO DAILY 90 days ibuprofen 800 mg PO Q8H PRN 30 days Tobacco use date assessed: 11/15/23 Dental Screening Dental Screen Date: 11/15/23 Did you have a dental visit in the last 12 months?: No Did you have a dental problem in the last 6 months where you did not have access to dental care?: No Was dental information given to patient?: No HPI Annual Exam HPI Details Patient comes in today for his annual physical examination He went to the ER last week for sore throat and ear symptoms - was diagnosed with viral URI and prescribed some meds for symptomatic relief He tested negative then for COVID, influenza and strep States that he currently feels okay and that most of his recent URI symptoms have improved although he still has recurrent SOB/PARMAR and his chest still feels somewhat congested Still has on and off cough and he coughs up minimal clear to whitish phlegm He denies any headaches or dizziness; denies any fever or sore throat Denies any chest pains No nausea/vomiting, no abdominal pain No change in bowel habits noted - still has frequent loose stools (especially post-prandially) and on and off diarrhea He denies any acute urinary symptoms He was not able to get his follow up labs done prior to his appointment today [facility] Medical History (Updated 11/15/23 @ 13:42 by Rajan Clark MD) Diabetes mellitus Morbid obesity with BMI of 40.0-44.9, adult Cholecystitis Obesity (BMI 30-39.9) Vitamin D deficiency Frequent loose stools Diarrhea due to malabsorption Surgical History History of laparoscopic cholecystectomy (03/19/22) History of gastric bypass (~04/05/20) Status post laparoscopic sleeve gastrectomy Status post gastric bypass for obesity Family History Mother Arthritis Father Parkinsons Maternal Grandfather Colon cancer Family/Other Colon cancer Social History Household Members: Spouse and Children Housing: House Do you presently have visiting nurse or other home services: No Alcohol intake: unknown Patient Tobacco Use Status: Never used Tobacco e-Cigarette/Vaping Use: Never Used Second Hand Smoke Exposure: No service: No Current occupational status: unemployed Cognitive needs: No Hearing needs: No Vision needs: Yes Questionnaire PHQ-9 Over the last 2 weeks, how often have you been bothered by any of the following problems? 1. Little interest or pleasure in doing things: several days 2. Feeling down, depressed, or hopeless: not at all 3. Trouble falling or staying asleep, or sleeping too much: not at all 4. Feeling tired or having little energy: not at all 5. Poor appetite or overeating: not at all 6. Feeling bad about yourself - or that you are a failure or have let yourself or your family down: not at all 7. Trouble concentrating on things, such as reading the newspaper or watching television: not at all 8. Moving or speaking so slowly that other people could have noticed. Or the opposite - being so fidgety or restless that you have been moving around a lot more than usual: not at all 9. Thoughts that you would be better off or of hurting yourself in some way: not at all Total score: 1 Depression Screening Interpretation: Negative Depression Screening Done: Yes 47822 - PHQ-9 Billing: Yes Source: Developed by Drs. Yosef Johnson, Christiana Yepez, Salinas Morgan and colleagues, with an educational caren from [employer]. Thrive Questionnaire Date Thrive assessed: 11/15/23 I am a: Patient What is your living situation today?: I have a steady place to live Within the past 12 months, did the food you bought not last and you didn't have the money to get more?: Sometimes True Within the past 12 months, did you worry whether your food would run out before you got money to buy more?: Sometimes True Do you have trouble paying for medicines?: No Do you have trouble getting transportation to medical appointments?: No Do you have trouble paying your heating and electricity bill?: No Do you have trouble taking care of your child, family member or friend?: No Do you have trouble with day-to-day activities such as bathing, preparing meals, shopping, managing finances, etc.?: No Are you currently unemployed and looking for a job?: No Are you interested in more education?: No Please select the resources that you would like help with: None Currently or been in a relationship where the following occur: No concerns reported THRIVE Score: 2 AUDIT C Alcohol Use Questionnaire (AUDIT-C) 1. How often do you have a drink containing alcohol?: Monthly or less 2. How many drinks containing alcohol do you have on a typical day when you are drinking?: 1 or 2 3. How often do you have six or more drinks on one occasion?: Less than monthly Total Score: 2 Score Reviewed/Action Taken: Yes TODD-7 AMB Questionnaire TODD-7 Date TODD - 7 assessed: 11/15/23 Feeling nervous, anxious, or on edge: 0 = Not at all Not being able to stop or control worryin = Not at all Worrying too much about different things: 0 = Not at all Trouble relaxin = Not at all Being so restless that it is hard to sit still: 0 = Not at all Becoming easily annoyed or irritable: 0 = Not at all Feeling afraid as if something awful might happen: 0 = Not at all Total TODD-7 score (0-4 normal; 5-9 mild; 10-14 moderate; 15-21 severe): 0 Source: Developed by Drs. Yosef Johnson, Christiana Yepez, Salinas Morgan and colleagues, with an educational caren from [employer]. Review of Systems Const Denies chills, Reports fatigue, Denies fever(s), Denies headache(s) and Denies malaise Eyes Denies blurry vision, Denies irritation and Denies itchy eyes ENT Denies dysphagia, Denies dizziness, Denies otalgia, Denies headache(s), Denies nasal congestion, Denies neck pain, Denies odynophagia and Denies sore throat Card Denies chest pain, Denies rapid heart rate, Denies irregular heart rhythm, Reports palpitations (occasional) and Reports dyspnea on exertion (mild) Resp Reports chest congestion (mild), Reports cough (on and off ), Denies excessive phlegm production, Reports dyspnea on exertion (mild) and Denies wheezing GI Denies abdominal pain, Denies bloating, Denies constipation, Denies dysphagia, Denies heartburn, Reports diarrhea (on and off), Reports loose stools (frequent, including postprandially), Denies nausea, Denies odynophagia and Denies vomiting Denies hematuria, Denies difficulty urinating, Denies dysuria, Denies urinary frequency and Denies urinary urgency Musc Denies back pain, Reports arthralgias, Denies joint swelling, Denies muscle weakness and Denies neck pain Skin/Breast Denies change in pigmentation, Denies lesions, Denies rash and Denies unusual bruising Neuro Denies dizziness, Denies headache(s) and Denies paresthesias Psych Reports anxiety Endo Reports fatigue and Reports palpitations (occasional) Aller/Immun Denies itchy eyes and Denies wheezing Physical exam (Primary Care) Vital Signs: Last Vital Signs Pulse 66 11/15/23 12:37 BP 124/88 11/15/23 12:37 Pulse Ox 96 11/15/23 12:37 Oxygen Delivery Method Room Air 11/15/23 12:37 BMI result Body Mass Index 44.5 Tobacco/Smoking Status: Tobacco use Status Tobacco use date assessed 11/15/23 11/15/23 12:43 Patient Tobacco Use Status Never used Tobacco 11/15/23 12:43 e-Cigarette/Vaping Use Never Used 11/15/23 12:43 PHQ-9: PHQ-9 Score PHQ-9: Total score 1 11/15/23 12:43 Depression Screening Interpretation: Negative Thrive Assessment: Date of Thrive Assessment Date Thrive assessed 11/15/23 11/15/23 12:43 Currently or been in a relationship where the following occur: No concerns reported Const General: no acute distress, alert and awake Orientation/consciousness: patient oriented x3 HENMT Head: Yes normocephalic and Yes atraumatic Ears: external ears normal, TM's normal bilaterally and EAC's normal General nose exam: No nasal discharge present Face and sinus: Yes normal facial exam and Yes sinuses nontender Teeth and gingiva: dentition normal Throat: Yes posterior oropharynx normal and Yes tonsils normal (no TP congestion) Eyes Eyelids: Yes eyelids normal Conjunctivae: conjunctivae normal Pupils: Equal, round and reactive pupils present EOM: EOMs intact bilaterally Neck Neck: Yes no lymphadenopathy and Yes supple Thyroid: Thyroid normal Resp Auscultation: no crackles, no rales, rhonchi (occasional) throughout, no wheezes and diminished lung sounds (slightly) bilateral Cardio Rate: regular rate Rhythm: regular rhythm Heart sounds: no murmurs GI Palpation (GI): Soft to palpation, nontender and No hepatosplenomegaly present Auscultation: normal bowel sounds General: Yes no CVA tenderness Back/Spine/Pelvis Back: no CVA tenderness Cervical Spine: Cervical spine tenderness (mild) Thoracic/Lumbar Spine: lumbar spinal tenderness (mild) Skin Lesions: no lesions Rashes: no rashes Neuro General: patient oriented x3, moves all extremities, no focal motor deficits and CN's II-XI intact bilaterally Cranial nerves: Yes Equal, round and reactive pupils present Cognition (Neuro): normal cognition Gait exam (Neuro): Normal gait present Extrem General: Yes no clubbing, cyanosis or edema Results AMB Hemoglobin A1c AMB Hemoglobin A1c 7.0 % Last Edit by CHRIS Silvestre on 11/15/23 12 :54 Assessment and Plan Assessment & Plan (1) Annual physical exam: Code(s): Z00.00 - Encounter for general adult medical examination without abnormal findings Plan: Check labs (2) Intermittent palpitations: Code(s): R00.2 - Palpitations Plan: Discussed that because of this, together with his current PARMAR, as well as his family Hx (father) of WPTanika, will go ahead and send him for echocardiogram for further evaluation He did have an EKG done as recently as last year, which came out normal (3) Exertional dyspnea: Code(s): R06.09 - Other forms of dyspnea Plan: He just had chest x-rays done at the ER last week when he presented there with some throat and ear symptoms - chest x-rays were normal He is being sent for an echocardiogram for further evaluation of his exertional dyspnea Will go ahead for now and start him on Albuterol HFA 1 to 2 inhalations Q 6 hours PRN short-term, pending further evaluation (4) Diabetes mellitus: Code(s): E11.9 - Type 2 diabetes mellitus without complications Qualifiers: Diabetes mellitus type: type 2 Diabetes mellitus assisted insulin use: without assisted use Diabetes mellitus complication status: without complication Qualified Code(s): E11.9 - Type 2 diabetes mellitus without complications Plan: His in-office HgbA1c done today is at 7.0% (was at 6.3% a few months ago) - goal is ideally <6.5% especially if he wishes to avoid taking any Rx for diabetes Reinforced diabetic diet Patient has not required any Rx for diabetes since his bariatric surgery so far and we can hopefully continue to keep it that way IF he can get his HgbA1c back down to under 6.0% Will continue to hold off on starting him on Rx for diabetes, especially with his current GI issues, but advised that if he cannot get his diabetes controlled improved or lower over the next few months, then we will have to consider starting him on some Rx for his diabetes to slow down its progression (5) Arthralgia: Code(s): M25.50 - Pain in unspecified joint Qualifiers: Joint pain location: unspecified Qualified Code(s): M25.50 - Pain in unspecified joint Plan: Involving multiple joints, including right knee, shoulders, elbows, hands and lower back, which he states have been going on for a while now Relates (+) Hx of RA (mother) and he is concerned that he may also have RA or some other inflammatory joint disease He was sent for labs to evaluate him for possible inflammatory joint disease or other related CTDs and his tests have all come back negative Have advised him that his joint pains are most likely due to osteoarthritis and tendinitis/bursitis and are likely related to the work that he does (at his current job) He was advised that these can continue to be managed conservatively with NSAIDs like ibuprofen as needed and also with physical therapy when appropriate Can consider referring him to rheumatology for further evaluation/recommendations later on if his symptoms of diffuse/multiple joint pains continue to persist or get worse (6) Vitamin D deficiency: Code(s): E55.9 - Vitamin D deficiency, unspecified Plan: Continue Vitamin D3 2000 units QD (7) Status post gastric bypass for obesity: Code(s): Z98.84 - Bariatric surgery status Plan: Continue Pantoprazole 40 mg QD; was on Ursodiol 300 mg BID in the past but he stopped taking this sometime last year Continue Multivitamins and Vitamin B complex daily as well He is advised that this, coupled with his cholecystectomy, are likely the predominant reason(s) for his loose stools and intermittent diarrhea Have advised him to try to find some type of diet or regimen (will likely have to do this through trial and error on his own) that will help regulate his bowel movements and GI symptoms better and that it is likely that the best he can do is to slow down his bowel movements and that there is a good chance that he will never be able to get back to a completely normal bowel regimen (8) Morbid obesity with BMI of 40.0-44.9, adult: Code(s): E66.01 - Morbid (severe) obesity due to excess calories; Z68.41 - Body mass index [BMI] 40.0-44.9, adult Plan: Reinforced diet/exercise as tolerated/lose weight Plan Follow up in 3 months Orders: Orders AMB Hemoglobin A1c Today Z13.9 - Encounter for screening, unspecified CA echo transthoracic complete Today R00.2 - Palpitations, R06.09 - Other forms of dyspnea Microalbumin, Random (w Creat) Today E11.9 - Type 2 diabetes mellitus without complications Vitamin D 25-OH Total Today E55.9 - Vitamin D deficiency, unspecified Medications: New Ventolin HFA 90 mcg/actuation (albuterol sulfate) 2 puffs inhalation Q6H 30 days PRN 18 grams 3RF shortness of breath or wheezing NS blood-glucose meter (FreeStyle Lite Meter kit) As directed 1 ea 0RF E11.9 - Type 2 diabetes mellitus without complications blood sugar diagnostic (FreeStyle Lite Strips) As directed once a day 100 ea 12RF E11.9 - Type 2 diabetes mellitus without complications lancets (FreeStyle Lancets) As directed once a day 100 ea 12RF E11.9 - Type 2 diabetes mellitus without complications Coding Level of Care Code Est Pt Prev Care 40-64y(01263) Diagnoses Annual physical exam Z00.00 Intermittent palpitations R00.2 Exertional dyspnea R06.09 Type 2 diabetes mellitus without complication, without long-term current use of insulin E11.9 Diabetes mellitus type: type 2 Diabetes mellitus assisted 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
[2023-11-15 12:37] VITALS: BP 124/88; PULSE 66; O2SAT 96; BMI 44.5
== END 2023-11-15 13:08 | disposition home or self-care (01) ==
PROVIDERS: PCP Internal Medicine; Visit Provider Internal Medicine
DX: Z00.00 Encounter for general adult medical examination without abnormal findings (principal); R00.2 Palpitations; R06.09 Other forms of dyspnea; E11.9 Type 2 diabetes mellitus without complications; M25.50 Pain in unspecified joint; E55.9 Vitamin D deficiency, unspecified; Z98.84 Bariatric surgery status; E66.01 Morbid (severe) obesity due to excess calories; Z68.41 Body mass index [BMI] 40.0-44.9, adult; Z13.9 Encounter for screening, unspecified
CPT/HCPCS: 83036; 99396

== ENCOUNTER → 2023-12-10 10:49 | Outpatient (REF) | payer OTHER, SELFPAY ==
--- NOTE | 2023-12-10 10:52 | CA_ITS ---
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 The visually estimated ejection fraction is between 55-60%. Diastolic function is normal for age. - Normal right ventricular cavity size and systolic function. - The left atrium is mildly dilated. Findings Procedure Information Contrast agent, definity, is being given per protocol without apparent complications. Left Ventricle Normal left ventricular size, thickness, systolic function, and wall motion. The visually estimated ejection fraction is between 55-60%. Diastolic function is normal for age. Right Ventricle Normal right ventricular cavity size and systolic function. Atria The left atrium is mildly dilated. The right atrium is normal in size. Aortic Valve Normal aortic valve structure and function. There is no aortic valve stenosis. There is no aortic valve regurgitation. Mitral Valve The mitral valve appears normal. There is no mitral valve regurgitation. There is no mitral valve stenosis. Pulmonic Valve The pulmonic valve is normal. There is trace pulmonic valve regurgitation. Tricuspid Valve Normal tricuspid valve structure and function. There is trace tricuspid valve regurgitation. Tricuspid regurgitation envelope is inadequate for calculation of right ventricular systolic pressure. Normal right atrial pressure. Great Vessels The visualized portions of the pulmonary artery and branches are normal. Venous The inferior vena cava is normal in size and collapses greater than 50% with inspiration. Pericardium/Pleural There is no evidence of pericardial effusion. Measurements 2D Linear Measurements IVSd: 0.94 0.6-0.9/0.6-1.0 cm LVIDd: 5.27 3.9-5.3/4.2-5.9 cm LVIDd Index: 2.19 2.4-3.2/2.2-3.1 cm/m2 LVIDs: 3.66 2.0-3.6 cm LVPWd: 0.81 0.7-1.1 cm LA Diam: 3.70 2.7-3.8/3.0-4.0 cm LAIDs Index: 1.54 1.5-2.3 cm/m2 LV Mass: 206.95 67-162/88-224 g LV Mass Index: 85.87 43-95/49-115 g/m2 LVOT Diam: 2.40 3.0+(-)1.3 cm 2D Systolic Function EF 4C: 51.60 >55% EF 2C: 52.60 >55% EF BiP: 50.90 >55% Mitral Valve MV Pk E: 0.54 MV PK A: 0.47 MV Decel Time: 229.00 E/A: 1.10 E'Lateral: 9.25 E'Medial: 6.20 E/E' Med: 8.60 E/E' Lat: 5.80 PHT: 67.00 MVA PHT: 3.28 Decel Turner: 2.34 Aortic Valve AoV Pk Jorge: 1.19 AoV Mn Jorge: 0.78 AoV VTI: 0.22 AoV Pk Grad: 6.00 Aov Mn Grad: 3.00 SHERRI Cont.VTI: 3.31 LVOT LVOT Pk Jorge: 0.74 LVOT Mn Jorge: 0.55 LVOT VTI: 0.16 LVOT Pk Grad: 2.00 LVOT Mn Grad: 1.00 LVOT Diam: 2.40 LVOT Area: 4.52 Diastolic Function MV Pk E: 0.54 MV Pk A: 0.47 E/A: 1.10 E'Medial: 6.20 E/E' Med: 8.60 E' Laterial: 9.25 E/E' Lat: 5.80 Right Ventricle TAPSE (mm): 25.30 TVS' Jorge: 11.90 Tricuspid Valve RA Press: 3.00 Great Vessels Aorta Sinus of Valsalva: 3.67 2.0-3.5 cm Ao Asc: 3.60 2.1-3.4 cm Ao Arch: 2.90 Updated in Other Vendor System with Status of Final Ludin Hannah MD electronically signed on 12/12/2023 2:02:07 PM with status of Final
== END ==
LOC: HO.CARD 10:49
PROVIDERS: PCP Internal Medicine; Visit Provider Internal Medicine
DX: R00.2 Palpitations (principal); R06.09 Other forms of dyspnea
CPT/HCPCS: 93306; Q9957

== ENCOUNTER → 2023-12-10 10:52 | Outpatient (BNV) | payer OTHER, SELFPAY | PROVIDERS: PCP Internal Medicine; Visit Provider Internal Medicine Cardiovascular Disease | DX: R06.09 Other forms of dyspnea (principal) | CPT/HCPCS: 93306 ==

== ENCOUNTER 2023-12-27 07:55 | Outpatient (REF) | payer OTHER, SELFPAY ==
[2023-12-27 08:07] LABS: MANUAL DIFF FLAG NO
[2023-12-27 08:37] LABS: Appearance Urine Clear; Color Urine Yellow; Glucose Urine UA Negative (Negative); Leukocyte Esterase Urine Negative (Negative); Nitrite Urine Negative (Negative); PH 5.5 (5.0-9.0); Specific Gravity - Urine >= 1.030 (1.005-1.025); Urine Blood Negative (Negative); Urine Ketones Trace mg/dL (Negative); Urine Protein Negative (Neg-Trace)
[2023-12-27 08:37] LABS: Basophils Absolute Auto 0.1 X10*3/uL (0.0-0.2); Basophils Percent Auto 0.7 % (0-2); Eosinophils Absolute Auto 0.2 X10*3/uL (0.0-0.4); Eosinophils Percent Auto 1.6 % (0-4); Hematocrit 43.6 % (42.0-52.0); Hemoglobin 14.2 g/dl (14.0-18.0); Imm Gran Abs Auto 0.09 X10*3/uL (0.00-0.03); Lymphocytes Absolute Auto 2.4 X10*3/uL (1.2-4.9); Lymphocytes Percent Auto 26.5 % (20-40); Mean Corpuscular HGB Conc 32.6 g/dl (31.0-36.0); Mean Corpuscular Hemoglobin 27.3 pg (27.0-33.0); Mean Corpuscular Volume 83.7 fL (80.0-98.0); Mean Platelet Volume 8.5 fL (9.4-12.4); Monocytes Absolute Auto 0.7 X10*3/uL (0.1-1.2); Monocytes Percent Auto 7.9 % (2-11); Neutrophils Absolute Auto 5.7 x10*3/uL (2.0-8.3); Neutrophils Percent Auto 62.3 % (45-73); Platelet Count 263 X10*3/uL (160-400); Red Blood Count 5.21 X10*6/uL (4.60-5.80); Red Cell Distribution Width 13.4 % (11.0-16.0); White Blood Count 9.1 X10*3/uL (4.8-10.8)
[2023-12-27 09:27] LABS: Creatinine Urine 231.32 mg/dL; Microalbum/Creatinine Ratio Ur 9.5 ug/mg cr (<30)
[2023-12-27 09:28] LABS: Alanine Aminotransferase 43 U/L (0-40); Albumin Level 4.3 g/dL (3.5-5.0); Alkaline Phosphatase 87 U/L (39-117); Anion Gap 11 (12-20); Aspartate Amino Transferase 26 U/L (5-37); Bilirubin Total 0.6 mg/dL (0.0-1.0); Blood Urea Nitrogen 15 mg/dL (9-16); Calcium 9.4 mg/dL (8.4-10.2); Carbon Dioxide 27 mmol/L (22-29); Chloride 107 mmol/L (96-108); Cholesterol 140 mg/dL (<200); Estimated Glomerular Filt Rate > 60; Glucose Fasting 160 mg/dL (60-99); HDL Cholesterol 29 mg/dL (>40); LDL Cholesterol Calculated 76 mg/dL (<100); Sodium 141 mmol/L (135-145); Total Protein 7.2 g/dL (6.5-8.0); Triglycerides 177 mg/dL (<150)
[2023-12-27 09:46] LABS: TSH reflex Free T4 1.33 uIU/mL (0.32-4.0); Vitamin D 25-OH Total 12.4 ng/mL (>30)
== END 2023-12-27 07:56 | disposition home or self-care (01) ==
LOC: HO.LAB 07:55
PROVIDERS: PCP Internal Medicine; Visit Provider Internal Medicine
DX: Z00.00 Encounter for general adult medical examination without abnormal findings (principal); E78.00 Pure hypercholesterolemia, unspecified; E11.9 Type 2 diabetes mellitus without complications; R30.0 Dysuria; E55.9 Vitamin D deficiency, unspecified
CPT/HCPCS: 36415; 80053; 80061; 81003; 82043; 82306; 82570; 84443; 85025

== ENCOUNTER 2024-01-07 09:48 | Outpatient (AMB) | payer OTHER, SELFPAY ==
--- NOTE | 2024-01-07 09:51 | MHC.OFFVIS ---
Vital Signs 01/07/24 09:54 Height 5 ft 8 in Weight 292 lb BMI 44.4 Intake Visit Reasons: OV - Right Shoulder MRI Review Intake Note: Ludwin is a 38 year old right hand dominant male who presents today for a follow up of his right shoulder. He was last seen with [place] who ordered an MRI arthrogram, which was done at [facility] on 11/22/2023. Impression: 1. SLAP Tear 2. Intra-articular biceps tendinosis 3. Supraspinatus and infraspinatus tendinosis Allergies No Known Allergies Allergy (Verified 11/15/23 12:47) HPI HPI OV - Right Shoulder MRI Review: Details: 38 yo with a 2 year history of right shoulder pain. He describes pain deep in his shoulder with overhead reaching and lifting and has been lately having difficulty sleeping. He did have an injection in our clinic which was briefly helpful. He had an MRI which showed tendinosis and likely SLAP tear. He has not done physical therapy. [facility] Medical History Diabetes mellitus Morbid obesity with BMI of 40.0-44.9, adult Cholecystitis Obesity (BMI 30-39.9) Vitamin D deficiency Frequent loose stools Diarrhea due to malabsorption Surgical History History of laparoscopic cholecystectomy (03/19/22) History of gastric bypass (~04/05/20) Status post laparoscopic sleeve gastrectomy Status post gastric bypass for obesity Family History Mother Arthritis Father Parkinsons Maternal Grandfather Colon cancer Family/Other Colon cancer Social History Household Members: Spouse and Children Housing: House Do you presently have visiting nurse or other home services: No Alcohol intake: unknown Patient Tobacco Use Status: Never used Tobacco e-Cigarette/Vaping Use: Never Used Second Hand Smoke Exposure: No service: No Current occupational status: unemployed Cognitive needs: No Hearing needs: No Vision needs: Yes Physical Exam Vital Signs: BMI result Body Mass Index 44.4 Extrem Other: Full range of motion limited slightly by pain and internal rotation Positive Mackay and Neer Negative empty can Positive Antelope's Results Reviewed Results Reviewed: I personally reviewed the MR images. There is a SLAP tear with intra-articular biceps tendinosis and supraspinatus and infraspinatus tendinosis. Assessment & Plan Assessment & Plan (1) SLAP (superior glenoid labrum lesion): Code(s): S43.439A - Superior glenoid labrum lesion of unspecified shoulder, initial encounter Category: Medical Plan: This is a 38-year-old with likely SLAP tear. I reviewed the pathophysiology of this condition with him. He has not done physical therapy. I recommend he complete a course of physical therapy and then follow up to see me if his pain persists. At that point we may find it helpful to perform a biceps tenodesis Coding Level of Care Code Est Pt Level 4 (74704) Diagnoses SLAP (superior glenoid labrum lesion) S43.439A
[2024-01-07 09:54] VITALS: BMI 44.4
== END 2024-01-07 10:29 | disposition home or self-care (01) ==
LOC: HO.HOS 09:49
PROVIDERS: PCP Internal Medicine; Visit Provider Orthopaedic Surgery
DX: S43.439A Superior glenoid labrum lesion of unspecified shoulder, initial encounter (principal)
CPT/HCPCS: 99214

== ENCOUNTER → 2024-01-07 09:48 | Outpatient (BNVA) | payer OTHER, SELFPAY | PROVIDERS: PCP Internal Medicine; Visit Provider Orthopaedic Surgery | DX: S43.439D Superior glenoid labrum lesion of unspecified shoulder, subsequent encounter (principal) | CPT/HCPCS: 99212 ==

== ENCOUNTER 2024-03-23 12:17 | Outpatient (AMB) | payer OTHER, SELFPAY ==
--- NOTE | 2024-03-23 12:21 | A.OFFVIS_ITS ---
Intake Visit Reasons: OV- RT shoulder pain, wants inj Intake Note: Ludwin is a 38 year old right hand dominant male who presents today for a follow up of his right shoulder. He was previously instructed to work with PT and follow up if pain continued - at the point we may consider biceps tenodesis. Patient reports that he has had increasing pain in the right shoulder. He has tried an injection in the past that was helpful. He would like to have an injection today and is hesitant to proceed with surgery MRI Impression 11/22/23 - Already reviewed with patient Impression: 1. SLAP Tear 2. Intra-articular biceps tendinosis 3. Supraspinatus and infraspinatus tendinosis Allergies No Known Allergies Allergy (Verified 11/15/23 12:47) HPI HPI OV- RT shoulder pain, wants inj: Details: Ludwin is a 38-year-old gentleman with continued right shoulder pain. His MRI was suggestive of biceps pathology and he can do continues to describe shoulder pain with occasional popping. As opposed to being inconsistent it is now consistently painful. He has not yet done physical therapy. [facility] Medical History Diabetes mellitus Morbid obesity with BMI of 40.0-44.9, adult Cholecystitis Obesity (BMI 30-39.9) Vitamin D deficiency Frequent loose stools Diarrhea due to malabsorption Surgical History History of laparoscopic cholecystectomy (03/19/22) History of gastric bypass (~04/05/20) Status post laparoscopic sleeve gastrectomy Status post gastric bypass for obesity Family History Mother Arthritis Father Parkinsons Maternal Grandfather Colon cancer Family/Other Colon cancer Social History Household Members: Spouse and Children Housing: House Do you presently have visiting nurse or other home services: No Alcohol intake: unknown Patient Tobacco Use Status: Never used Tobacco e-Cigarette/Vaping Use: Never Used Second Hand Smoke Exposure: No service: No Current occupational status: unemployed Cognitive needs: No Hearing needs: No Vision needs: Yes Physical Exam Extrem Other: 30/90/140/L5 Mildly positive Mackay and Neer Negative empty can Positive [place]'s positive crank test Office Procedures Joint Inj/Aspir; Non-Pain Clin Joint Injection/Drain Details: Injected 1 mL of Decadron and 3 mL 1% lidocaine and 3 mL of 0.25% Marcaine. Site was prepped using aseptic technique. Patient tolerated the procedure well. Shoulders, Hips, Knees, Shoulder Injection Large joint : Right Shoulder Coding Procedure code (CPT) selection complete Assessment & Plan Assessment & Plan (1) SLAP (superior glenoid labrum lesion): Code(s): S43.439A - Superior glenoid labrum lesion of unspecified shoulder, initial encounter Category: Medical Plan: This is a 38-year-old gentleman with a likely SLAP tear who has not yet done physical therapy. I recommend physical therapy. I did inject his shoulders be having constant pain that is preventing him from sleeping. I informed him of the hyperglycemic effects of steroids. (2) Diabetes mellitus: Code(s): E11.9 - Type 2 diabetes mellitus without complications Category: Medical Qualifiers: Diabetes mellitus type: type 2 Diabetes mellitus middle or intermediate school principal insulin use: without middle or intermediate school principal use Diabetes mellitus complication status: without complication Qualified Code(s): E11.9 - Type 2 diabetes mellitus without complications Plan: Patient was informed of the hyperglycemic effects of steroids. Orders: Orders PT Evaluation and Treatment Today S43.439A - Superior glenoid labrum lesion of unspecified shoulder, initial encounter Coding Level of Care Code Est Pt Level 4 (25108) Diagnoses SLAP (superior glenoid labrum lesion) S43.439A Type 2 diabetes mellitus without complication, without long-term current use of insulin E11.9 Diabetes mellitus type: type 2 Diabetes mellitus mcc insulin use: without middle or intermediate school principal use Diabetes mellitus complication status: without complication CPT Codes Shoulders, Hips, Knees, - Shoulder Injection Large joint : Right Shoulder ([id number])
== END 2024-03-23 12:56 | disposition home or self-care (01) ==
PROVIDERS: PCP Internal Medicine; Visit Provider Orthopaedic Surgery
DX: S43.431A Superior glenoid labrum lesion of right shoulder, initial encounter (principal); E11.9 Type 2 diabetes mellitus without complications
CPT/HCPCS: 20610; 99214

== ENCOUNTER → 2024-03-23 12:17 | Outpatient (BNVA) | payer OTHER, SELFPAY | PROVIDERS: PCP Internal Medicine; Visit Provider Orthopaedic Surgery | DX: S43.431D Superior glenoid labrum lesion of right shoulder, subsequent encounter (principal); E11.9 Type 2 diabetes mellitus without complications | CPT/HCPCS: 20610; 99212; J0665; J1100; J2003 ==

== ENCOUNTER 2024-05-31 09:00 | Outpatient (RCR) | payer OTHER, SELFPAY ==
--- NOTE | 2024-05-26 09:57 | MHC.PT.EP ---
[facility] [place] Office [place] Office [place] Office [address] [phone] F: [phone] F: [phone] F: [phone] F: [phone] Physical Therapy Plan of Care Date of Evaluation: 05/26/24 Date of Surgery: Diagnosis: superior glenoid labrum lesion R shoulder. Assessment: Patient is a 52 year old R handed male who presents with s/s consistent with superior glenoid labrum lesion right shoulder. 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 Patient past medical history includes DM and obesity. Current impairments include pain, posture, ROM, strength, activity tolerance and functional mobility. Functional limitations include decreased ability to lift, carry, push, pull, sleep, dress and reach. Patient is motivated with good rehab potential. Skilled PT will address impairments and functional limitations in order to achieve goals. 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 Manual therapy to restore motion and function. Therapeutic exercise to improve strength and flexibility. Neuromuscular re-education for posture and balance. Therapeutic activities to return to functional activities of daily living. Electronically signed by: Faizan Brenner, PT Please sign and return to therapist. Thank you for your referral.
--- NOTE | 2024-09-26 10:10 | MHC.PT.DC ---
[facility] [place] Office [place] Office [place] Office [address] [phone] F: [phone] F: [phone] F: [phone] F: [phone] Physical Therapy Discharge Report Diagnosis: superior glenoid labrum lesion R shoulder. Date of Surgery: Date of Evaluation: 05/26/24 Date of Discharge: 06/28/24 Treatments to Date: 3 Cancellations to Date: No Shows to Date: Discharge Status: Independent with HEP Patient Elected to Stop Discharge Summary: 05/31;Pt had pain with wall slide for flexion and isometric int rot DC at that time. Pt ROM WNL, but pain with certain movemnwets. 05/29/24: pain limited cuff strength ex today. assess response and attempt progress/update HEP NV. Patient is a 52 year old R handed male who presents with s/s consistent with superior glenoid labrum lesion right shoulder. 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 Patient past medical history includes DM and obesity. Current impairments include pain, posture, ROM, strength, activity tolerance and functional mobility. Functional limitations include decreased ability to lift, carry, push, pull, sleep, dress and reach. Patient is motivated with good rehab potential. Skilled PT will address impairments and functional limitations in order to achieve goals. Electronically signed by: Faizan Brenner, PT Please sign and return to therapist. Thank you for your referral.
== END 2024-09-26 10:10 | disposition home or self-care (01) ==
LOC: HO.PTCHIC 09:00
PROVIDERS: PCP Internal Medicine; Visit Provider Orthopaedic Surgery
DX: S43.439D Superior glenoid labrum lesion of unspecified shoulder, subsequent encounter (principal)
CPT/HCPCS: 97014; 97110; 97162

== ENCOUNTER 2024-08-21 09:00 | Outpatient (AMB) | payer OTHER, SELFPAY ==
--- NOTE | 2024-08-21 09:04 | A.OFFVIS_ITS ---
Vital Signs 08/21/24 09:05 Height 5 ft 8 in Weight 292 lb BMI 44.4 Intake Visit Reasons: OV- RT shoulder pain Intake Note: Ludwin is a 39 year old right hand dominant male who presents today for a follow up of his right shoulder pain. At his last visit on 03/23/24 the right shoulder was injected. Patient reports that the injection did not help and would like to discuss surgery. Patient states that's the right shoulder down to his hands are having tightness and ROM is decreasing since previous visit. Allergies No Known Allergies Allergy (Verified 08/21/24 09:09) HPI HPI OV- RT shoulder pain: Details: Ludwin is a 39 year old right hand dominant male who presents today for a follow up of his right shoulder pain. At his last visit on 03/23/24 the right shoulder was injected. Patient reports that the injection did not help and would like to discuss surgery. Patient states that's the right shoulder down to his hands are having tightness and ROM is decreasing since previous visit. He states that go through periods where his shoulders okay followed by periods of pain when moves suddenly. 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 [facility] Medical History Diabetes mellitus Morbid obesity with BMI of 40.0-44.9, adult Cholecystitis Obesity (BMI 30-39.9) Vitamin D deficiency Frequent loose stools Diarrhea due to malabsorption Surgical History History of laparoscopic cholecystectomy (03/19/22) History of gastric bypass (~04/05/20) Status post laparoscopic sleeve gastrectomy Status post gastric bypass for obesity Family History Mother Arthritis Father Parkinsons Maternal Grandfather Colon cancer Family/Other Colon cancer Social History Household Members: Spouse and Children Housing: House Do you presently have visiting nurse or other home services: No Alcohol intake: unknown Patient Tobacco Use Status: Never used Tobacco e-Cigarette/Vaping Use: Never Used Second Hand Smoke Exposure: No service: No Current occupational status: unemployed Cognitive needs: No Hearing needs: No Vision needs: Yes Physical Exam Vital Signs: BMI result Body Mass Index 44.4 Extrem Other: Right shoulder with full range of motion. He has a negative painful empty can. Positive Mackay and Neer markedly positive [place]'s positive crank test. 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 This is not improving. He has tried therapy and injections and activity modification in his still can not engage in recreational activities that involve throwing or playing with his kids is difficult because of pain. He finds this frustrating. I had a long discussion with him regarding the pathophysiology and I recommend a biceps tenodesis. I discussed this with him and discussed the surgery and the recovery time. 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 I expressed understanding. He will contact me when he would like to proceed forward with surgery. Plan We discussed surgical intervention - - , I provided him with my card and he will call when he would like to proceed with surgery Coding Level of Care Code Est Pt Level 4 (36489) Diagnoses SLAP (superior glenoid labrum lesion) S43.439A
[2024-08-21 09:05] VITALS: BMI 44.4
--- OUTSIDE RECORDS SUMMARY | 2024-08-21 09:34 | XMS_ITS | Clinical Summary ---
Author Organization [facility] Address [address] [place] [address] Phone Care Team Providers Care Manager Actuarial Name Role Phone Rajan Clark MD Primary Care Provider Allergies No known active allergies Medications ibuprofen (ADVIL,MOTRIN) 800 mg tablet TAKE 1 TABLET ORALLY EVERY 8 HOURS NEEDED FOR PAIN FOR 30 DAYS TAKE WITH FOOD 4 Active tirzepatide, weight loss, (Zepbound) 15 mg/0.5 mL injection Inject 0.5 mL (15 mg total) under the skin every 7 (seven) days. 2 mL 2 5 10/31/19 25 Active tirzepatide, weight loss, (Zepbound) 15 mg/0.5 mL injection Inject 0.5 mL (15 mg total) under the skin every 7 (seven) days. 2 mL 5 08/05/19 25 Discontinu ed(Reorder ) Active Problems Problem Noted Date Diagnosed Date Intestinal postoperative nonabsorption 1 Esophageal dysmotility 03/22/2020 Hiatal hernia 03/22/2020 Overview (01/14/2024): Small sliding w/ esophageal dysmotility Hyperlipidemia 03/22/2020 Obstructive sleep apnea 03/22/2020 Type 2 diabetes mellitus wit hout complication ([facility] V24, [facility] V28) 03/22/2020 Encounters Date Type Department Care Team Description 08/04/2024 Telephone Bariatric Surgery - [address] [place] [id number] Lady Chong MD Med Refill (Zepbound) 06/09/2024 Telephone Bariatric Surgery - [address] [place] [address] Lady Chong MD Med Refill (Zepbound) from Last 3 Months Surgical History Surgery Date Site/Laterality Comments OTHER SURGICAL HISTORY 2015 PROCEDURE: ---- OTHER ----; COMMENT: Gastric Sleeve Medical History Medical History Date Comments Hyperlipidemia DX:Hyperlipidemi a Hypertension DX:Hypertension Obstructive sleep apnea DX:Obstr uctive sleep apnea Positive hepatitis C antibody test DX:Positive hepatitis C antibody test Esophageal dysmotility 03/22/2020 DX:Esopha geal dysmotility Type 2 diabetes mellitus wit hout complication (CMS/HCC V24, [facility] V28) 03/22/2020 DX:Type 2 diab etes mellitus without complication (HCC) Class 3 severe obesity due t o excess calories with serious comorbidity and body mass index (BMI) of 40.0 to 44.9 in adult (CMS/HCC V24, CMS/HCC V28) 08/24/2019 DX:Class 3 severe obesity due to excess calories with serious comorbidity and body mass index (BMI) of 40.0 to 44.9 in adult ([facility]) Hiatal hernia 03/22/2020 DX:Hiatal hernia ; COMMENT: Small sliding w/ esophageal dysmotility History of bariatric surgery 03/22/2020 DX: History of bariatric surgery; COMMENT: Gastric sleeve Family History Medical History Relation Name Comments Hypertension Father Other: CVD Father Relation Name Status Comments Father Alive Mother Alive Social History Tobacco Use Types Packs/Day Years Used Date Smoking Tobacco: Never Smokeless Tobacco: Never Alcohol Use Standard Drinks/Week Comments Yes 0 (1 standard drink = 0.6 oz pur e alcohol) Sex and Gender Information Value Date Recorded Sex Assigned at Not on file Legal Sex Male 4:35 AM EST Gender Identity Not on file Sexual Orientation Not on file Obstetrics History Last Filed Vital Signs Vital Sign Reading Time Taken Comments Blood Pressure 135/68 02/22/2024 9:51 AM EST Pulse 78 02/22/2024 9:51 AM EST Temperature 36.6 ??C (97.8 ??F) 02/22/2024 9:51 AM ES T Respiratory Rate - - Oxygen Saturation - - Inhaled Oxygen Concentration - - Weight 136 kg (300 lb) 02/22/2024 9:51 AM EST Height 175.3 cm (5' 9 ) 02/22/2024 9:51 AM EST Body Mass Index 44.3 02/22/2024 9:51 AM EST Plan of Treatment Health Maintenance Due Date Last Done Comments Diabetes: Annual Foot Exam 1993 Diabetes: Annual Retina Eye Exam 1993 Hepatitis B Vaccines (1 of 3 - 19+ 3-dose series) 2002 Pneumococcal Vaccine: Pediatrics (0 to 5 Years) and At-Risk Patients (6 to 64 Years) (1 of 2 - PCV) 2002 Diabetes: Annual GFR (Glomerular Filtration Rate) 12/06/2020 12/07/2019 Depression Screening 10/05/2023 Diabetes: Annual Urine Albumin-Creatinine Ratio (uACR) 10/05/2023 HIV Screening 10/05/2023 Hepatitis C Screening 10/05/2023 Social Influencers of Health Screening 10/05/2023 COVID-19 Vaccine ( season) 2023 02/11/2021, 08/07/2020, 07/09/2020 Diabetes: Blood Sugar Control Test (HGBA1C) 11/20/2023 05/20/2023 Influenza Vaccine (Season Ended) 2024 02/11/2021, 04/06/2020, 12/20/2017, Additional history exists Cholesterol Screening (Lipid Panel) 12/06/2024 12/07/2019 DTaP,Tdap,and Td Vaccines (2 - Td or Tdap) 12/03/2025 12/04/2015 HIB Vaccines Aged Out No longer eligi ble based on patient's age to complete this topic HPV Vaccines Aged Out No longer eligi ble based on patient's age to complete this topic Hepatitis A Vaccines Aged Out No long er eligible based on patient's age to complete this topic IPV Vaccines Aged Out No longer eligi ble based on patient's age to complete this topic MMR Vaccines Aged Out No longer eligi ble based on patient's age to complete this topic Meningococcal ACWY Vaccine Aged Out N o longer eligible based on patient's age to complete this topic Meningococcal B Vaccine Aged Out No l onger eligible based on patient's age to complete this topic RSV Immunization Patients Under 20 months Aged Out No longer eligible based on patient's age to complete this topic Varicella Vaccines Aged Out No longer eligible based on patient's age to complete this topic Procedures Procedure Name Priority Date/Time Associated Diagnosis Comments HEMOGLOBIN A1C Routine 05/20/2023 ANNUAL BMP BLOOD TEST Routine 12/07/2019 LIPID PANEL Routine 12/07/2019 from Last 3 Months or Most Recently Relevant to Health Maintenance Results * Hemoglobin A1c (05/20/2023) Hemoglobin A1C 6.4 <=6.5 % Blood Venous blood specimen / Unknown [facility] Provider LAB BLOOD ORDERABLES Radha l Result * Annual BMP Blood Test (12/07/2019) Annual BMP Blood Test Abstracted [facility] Provider HEALTH MAINTENANCE Final Result * (ABNORMAL) Lipid panel (12/07/2019) LDL/HDL Ratio 5(A) 0 - 4 Triglycerides 281(A) 0 - 150 mg/dL Cholesterol 158 0 - 200 mg/dL HDL 32(A) >=40 mg/dL LDL Cholesterol 70 0 - 100 mg/dL Blood Venous blood specimen / Unknown [facility] Provider LAB BLOOD ORDERABLES Radha l Result from Last 3 Months or Most Recently Relevant to Health Maintenance Insurance [facility] Care Teams Manager Actuarial Relationship Specialty Start Date End Date Rajan Clark MD [address] [place] [address] [address] PCP - General Internal Medicine 08/04/19
== END 2024-08-21 09:42 | disposition home or self-care (01) ==
LOC: HO.HOS 09:01
PROVIDERS: PCP Internal Medicine; Visit Provider Orthopaedic Surgery
DX: S43.439A Superior glenoid labrum lesion of unspecified shoulder, initial encounter (principal)
CPT/HCPCS: 99214

== ENCOUNTER → 2024-08-21 09:00 | Outpatient (BNVA) | payer OTHER, SELFPAY | PROVIDERS: PCP Internal Medicine; Visit Provider Orthopaedic Surgery | DX: M25.511 Pain in right shoulder (principal); S43.431A Superior glenoid labrum lesion of right shoulder, initial encounter | CPT/HCPCS: 99212 ==

== ENCOUNTER 2024-12-26 10:06 | Outpatient (AMB) | payer OTHER, SELFPAY ==
[2024-12-26 10:18] VITALS: BP 110/68; PULSE 71; O2SAT 97; BMI 41.7
--- NOTE | 2024-12-26 10:18 | MHC.PC.OV ---
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 Accompanied by: Self / Same As Patient Allergies No Known Allergies Allergy (Verified 12/26/24 11:01) Medication List - Last Reconciled 12/26/24 by Rajan Clark MD blood sugar diagnostic As directed blood sugar diagnostic (FreeStyle Lite Strips) As directed once a day blood-glucose meter (FreeStyle Lite Meter kit) As directed cholecalciferol (vitamin D3) 50 mcg PO DAILY 90 days ibuprofen 800 mg PO Q8H PRN 30 days lancets (FreeStyle Lancets) As directed once a day tirzepatide (weight loss) (Zepbound) 15 mg subcut QWEEK Ventolin HFA 90 mcg/actuation (albuterol sulfate) 2 puffs inhalation Q6H PRN 30 days NS Tobacco use date assessed: 12/26/24 Dental Screening Dental Screen Date: 12/26/24 Did you have a dental visit in the last 12 months?: No Did you have a dental problem in the last 6 months where you did not have access to dental care?: No Was dental information given to patient?: No HPI annual exam-PHQ-9+ A1C needed HPI Details Patient comes in today for his annual physical examination States that he feels okay He denies any headaches or dizziness Denies any chest pains, no SOB No nausea/vomiting, no abdominal pain No change in bowel habits noted Denies any acute urinary symptoms He was started on Tirzepatide by weight management over at [facility] about 3 weeks ago - states that he has since lost almost 20 pounds already He continues to experience increased pain over his lower back as well as over his right shoulder States that he was advised by orthopedics a few months ago that his only option left would be arthroscopic surgery but 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 Patient remains undecided yet on this and he was advised to just reach out to orthopedics whenever he is ready for surgery [facility] Medical History Diabetes mellitus Morbid obesity with BMI of 40.0-44.9, adult Cholecystitis Obesity (BMI 30-39.9) Vitamin D deficiency Frequent loose stools Diarrhea due to malabsorption Surgical History History of laparoscopic cholecystectomy (03/19/22) History of gastric bypass (~04/05/20) Status post laparoscopic sleeve gastrectomy Status post gastric bypass for obesity Family History Mother Arthritis Father Parkinsons Maternal Grandfather Colon cancer Family/Other Colon cancer Social History Household Members: Spouse and Children Housing: House Do you presently have visiting nurse or other home services: No Alcohol intake: unknown Patient Tobacco Use Status: Never used Tobacco e-Cigarette/Vaping Use: Never Used Second Hand Smoke Exposure: No service: No Current occupational status: unemployed Cognitive needs: No Hearing needs: No Vision needs: Yes Questionnaire PHQ-9 Over the last 2 weeks, how often have you been bothered by any of the following problems? 1. Little interest or pleasure in doing things: several days 2. Feeling down, depressed, or hopeless: several days 3. Trouble falling or staying asleep, or sleeping too much: several days 4. Feeling tired or having little energy: several days 5. Poor appetite or overeating: not at all 6. Feeling bad about yourself - or that you are a failure or have let yourself or your family down: not at all 7. Trouble concentrating on things, such as reading the newspaper or watching television: not at all 8. Moving or speaking so slowly that other people could have noticed. Or the opposite - being so fidgety or restless that you have been moving around a lot more than usual: not at all 9. Thoughts that you would be better off or of hurting yourself in some way: not at all Total score: 4 Depression Screening Interpretation: Positive Depression Screening Follow-up: Follow-up Visit Requested Depression Screening Done: Yes [id number] - PHQ-9 Billing: Yes Source: Developed by Drs. Yosef L. AlexChristiana munson, Salinas Morgan and colleagues, with an educational caren from [employer]. Thrive Questionnaire Date Thrive assessed: 12/26/24 I am a: Patient What is your living situation today?: I have a steady place to live Within the past 12 months, did the food you bought not last and you didn't have the money to get more?: Often true Within the past 12 months, did you worry whether your food would run out before you got money to buy more?: Often true Do you have trouble paying for medicines?: Yes Do you have trouble getting transportation to medical appointments?: No Do you have trouble paying your heating and electricity bill?: Yes Do you have trouble taking care of your child, family member or friend?: No Do you have trouble with day-to-day activities such as bathing, preparing meals, shopping, managing finances, etc.?: No Are you currently unemployed and looking for a job?: Yes Are you interested in more education?: No Please select the resources that you would like help with: None Currently or been in a relationship where the following occur: No concerns reported THRIVE Score: 3 AUDIT C Alcohol Use Questionnaire (AUDIT-C) 1. How often do you have a drink containing alcohol?: Monthly or less 2. How many drinks containing alcohol do you have on a typical day when you are drinking?: 3 or 4 3. How often do you have six or more drinks on one occasion?: Less than monthly Total Score: 3 Score Reviewed/Action Taken: Yes TODD-7 AMB Questionnaire TODD-7 Date TODD - 7 assessed: 12/26/24 Feeling nervous, anxious, or on edge: 0 = Not at all Not being able to stop or control worryin = Not at all Worrying too much about different things: 0 = Not at all Trouble relaxin = Not at all Being so restless that it is hard to sit still: 0 = Not at all Becoming easily annoyed or irritable: 0 = Not at all Feeling afraid as if something awful might happen: 0 = Not at all Total TODD-7 score (0-4 normal; 5-9 mild; 10-14 moderate; 15-21 severe): 0 Source: Developed by Christiana Cardenas Kurt Kroenke and colleagues, with an educational caren from [employer]. Review of Systems Const Denies chills, Reports fatigue, Denies fever(s), Denies headache(s), Denies malaise and Denies weakness Eyes Denies blurry vision, Denies change in vision, Denies irritation and Denies itchy eyes ENT Denies dysphagia, Denies dizziness, Denies otalgia, Denies headache(s), Denies nasal congestion, Reports neck pain (chronic), Denies odynophagia and Denies sore throat Card Denies chest pain, Denies rapid heart rate, Denies irregular heart rhythm, Denies palpitations and Denies dyspnea Resp Denies chest congestion, Denies cough, Denies dyspnea and Denies wheezing GI Denies abdominal pain, Denies bloating, Denies constipation, Denies dysphagia, Denies heartburn, Denies diarrhea, Denies nausea, Denies odynophagia and Denies vomiting Denies hematuria, Denies difficulty urinating, Denies dysuria, Denies urinary frequency and Denies urinary urgency Musc Reports back pain (over the lower back - chronic), Reports arthralgias (in the right shoulder and over both knees), Denies joint swelling, Denies muscle weakness and Reports neck pain (chronic) Skin/Breast Denies change in pigmentation, Denies lesions, Denies rash and Denies unusual bruising Neuro Denies dizziness, Denies headache(s), Denies paresthesias and Denies weakness Psych Denies depression Endo Reports fatigue and Denies palpitations Aller/Immun Denies itchy eyes and Denies wheezing Physical exam (Primary Care) Vital Signs: Last Vital Signs Pulse 71 12/26/24 10:18 BP 110/68 12/26/24 10:18 Pulse Ox 97 12/26/24 10:18 Oxygen Delivery Method Room Air 12/26/24 10:18 BMI result Body Mass Index 41.7 Tobacco/Smoking Status: Tobacco use Status Tobacco use date assessed 12/26/24 12/26/24 10:27 Patient Tobacco Use Status Never used Tobacco 12/26/24 10:27 e-Cigarette/Vaping Use Never Used 12/26/24 10:27 PHQ-9: PHQ-9 Score PHQ-9: Total score 4 12/27/24 14:52 Depression Screening Interpretation: Positive Depression Screening Follow-up: Follow-up Visit Requested Thrive Assessment: Date of Thrive Assessment Date Thrive assessed 12/26/24 12/26/24 10:27 Currently or been in a relationship where the following occur: No concerns reported Const General: no acute distress, alert and awake Orientation/consciousness: patient oriented x3 HENMT Head: Yes normocephalic and Yes atraumatic Ears: external ears normal, TM's normal bilaterally and EAC's normal General nose exam: No nasal discharge present Face and sinus: Yes normal facial exam and Yes sinuses nontender Teeth and gingiva: dentition normal Throat: Yes posterior oropharynx normal and Yes tonsils normal (no TP congestion) Eyes Eyelids: Yes eyelids normal Conjunctivae: conjunctivae normal Pupils: Equal, round and reactive pupils present EOM: EOMs intact bilaterally Neck Neck: No lymphadenopathy and Yes tender Thyroid: Thyroid normal Resp Auscultation: clear to auscultation bilaterally, no rales and no wheezes Cardio Rate: regular rate Rhythm: regular rhythm Heart sounds: no murmurs GI Palpation (GI): Soft to palpation, nontender and No hepatosplenomegaly present Auscultation: normal bowel sounds General: Yes no CVA tenderness Back/Spine/Pelvis Back: no CVA tenderness Cervical Spine: Cervical spine tenderness Thoracic/Lumbar Spine: lumbar spinal tenderness Skin Lesions: no lesions Rashes: no rashes Neuro General: patient oriented x3, moves all extremities, no focal motor deficits and CN's II-XI intact bilaterally Cranial nerves: Yes Equal, round and reactive pupils present Cognition (Neuro): normal cognition Gait exam (Neuro): Normal gait present Extrem General: Yes no clubbing, cyanosis or edema Right upper extremity: shoulder/upper arm Details: tenderness Location: of the A-C joint Right lower extremity: knee Details: tenderness; no swelling Left lower extremity: knee Details: tenderness; no swelling Coding Level of Care Code Est Pt Prev Care 40-64y(62522) Diagnoses Annual physical exam Z00.00 Intermittent palpitations R00.2 Type 2 diabetes mellitus without complication, without long-term current use of insulin E11.9 Diabetes mellitus complication status: without complication 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: without group home use Diabetes mellitus type: type 2 Vitamin D deficiency E55.9 Superior glenoid labrum lesion of right shoulder, sequela S43.431S Encounter type: sequela Laterality: right Arthralgia, unspecified joint M25.50 Joint pain location: unspecified Midline low back pain without sciatica, unspecified chronicity M54.50 Chronicity: unspecified Back pain laterality: midline Sciatica presence: without sciatica History of gastric bypass Z98.84 Morbid obesity with BMI of 40.0-44.9, adult E66.01; Z68.41 Additional Codes PHQ-9 - 69013 - PHQ-9 Billing: Yes ([id number]) Assessment & Plan Assessment & Plan (1) Annual physical exam: Code(s): Z00.00 - Encounter for general adult medical examination without abnormal findings Category: Medical Plan: Check labs MARINA to complete his annual examination He is presently not yet due to start any cancer screenings at his age (2) Intermittent palpitations: Code(s): R00.2 - Palpitations Category: Medical Plan: EKG done in late 2022 came out normal Echocardiogram done back in December 2023 also came out normal - normal left ventricular size, thickness, systolic function, and wall motion. The visually estimated ejection fraction is between 55-60%. Diastolic function is normal for age. Normal right ventricular cavity size and systolic function. 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: without termite control service representative use Diabetes mellitus type: type 2 Qualified Code(s): E11.9 - Type 2 diabetes mellitus without complications Plan: His HgbA1c was at 7.0% when last checked a year ago in November 2023 Will send patient for some labs, including his FBS and HgbA1c, MARINA for follow up Reinforced diabetic diet Continue Tirzepatide 15 mg SQ once a week (4) Vitamin D deficiency: Code(s): E55.9 - Vitamin D deficiency, unspecified Category: Medical Plan: Continue Vitamin D3 2000 units QD Will recheck his Vitamin D level for follow up (5) SLAP (superior glenoid labrum lesion): Code(s): S43.439A - Superior glenoid labrum lesion of unspecified shoulder, initial encounter Category: Medical Qualifiers: Encounter type: sequela Laterality: right Qualified Code(s): S43.431S - Superior glenoid labrum lesion of right shoulder, sequela Plan: Patient has reportedly been advised by orthopedics that his only option at this point is arthroscopic surgery but 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 Patient remains undecided yet on this and he was advised to just reach out to orthopedics whenever he is ready for surgery (6) Arthralgia: Code(s): M25.50 - Pain in unspecified joint Category: Medical Qualifiers: Joint pain location: unspecified Qualified Code(s): M25.50 - Pain in unspecified joint Plan: Involving multiple joints, including the right knee, shoulders, elbows, hands and lower back, which he states have been going on for a while now He was sent for labs to evaluate him for possible inflammatory joint disease or other related CTDs and his tests have all come back negative Have advised him that his joint pains are most likely due to osteoarthritis and tendinitis/bursitis He was advised that these can continue to be managed conservatively with NSAIDs like ibuprofen as needed and also with physical therapy when appropriate Can consider referring him to rheumatology for further evaluation/recommendations later on if his symptoms of diffuse/multiple joint pains continue to persist or get worse (7) Low back pain: Code(s): M54.50 - Low back pain, unspecified Category: Medical Qualifiers: Chronicity: unspecified Back pain laterality: midline Sciatica presence: without sciatica Qualified Code(s): M54.50 - Low back pain, unspecified Plan: Reinforced activity and weight-lifting restrictions Will send patient for lumbar spine x-rays for further evaluation (8) History of gastric bypass: Onset Date: ~04/05/20 Comment: conversion of gastric sleeve to [place] single anastomosis duodenal switch - Dr. Chong ([facility]) Code(s): Z98.84 - Bariatric surgery status Category: Surgical Plan: Continue Pantoprazole 40 mg QD; he was on Ursodiol 300 mg BID in the past but he stopped taking this sometime last year Continue Multivitamins and Vitamin B complex daily as well He is advised that this, coupled with his cholecystectomy, are likely the predominant reason(s) for his loose stools and intermittent diarrhea Have advised him to try to find some type of diet or regimen (will likely have to do this through trial and error on his own) that will help regulate his bowel movements and GI symptoms better and that it is likely that the best he can do is to slow down his bowel movements and that there is a good chance that he will never be able to get back to a completely normal bowel regimen (9) Morbid obesity with BMI of 40.0-44.9, adult: Comment: S/P gastric bypass Code(s): E66.01 - Morbid (severe) obesity due to excess calories; Z68.41 - Body mass index [BMI] 40.0-44.9, adult Category: Medical Plan: Reinforced diet/exercise as tolerated/lose weight Continue Tirzepatide 15 mg Q week Follow up with weight management as scheduled Plan Follow up in 4 months Orders: Orders Complete Blood Count Auto Diff 12/26/24 D64.9 - Anemia, unspecified Lipid Panel 12/26/24 E78.00 - Pure hypercholesterolemia, unspecified TSH reflex Free T4 12/26/24 E78.00 - Pure hypercholesterolemia, unspecified UA CC w/rflx Micro + Cult 12/26/24 R30.0 - Dysuria Vitamin B12 and Folate 12/26/24 E53.8 - Deficiency of other specified B group vitamins Magnesium 12/26/24 E83.42 - Hypomagnesemia Hemoglobin A1c 12/26/24 E11.9 - Type 2 diabetes mellitus without complications XR lumbar spine 2-3V 12/26/24 M54.50 - Low back pain, unspecified Comprehensive [place]. Panel Fast 12/26/24 E78.00 - Pure hypercholesterolemia, unspecified Vitamin D 25-OH Total 12/26/24 E55.9 - Vitamin D deficiency, unspecified
== END 2024-12-26 11:05 | disposition home or self-care (01) ==
LOC: HO.HMCH 10:07
PROVIDERS: PCP Internal Medicine; Visit Provider Internal Medicine
DX: Z00.00 Encounter for general adult medical examination without abnormal findings (principal); E11.9 Type 2 diabetes mellitus without complications; E66.01 Morbid (severe) obesity due to excess calories; Z68.41 Body mass index [BMI] 40.0-44.9, adult; R00.2 Palpitations; E55.9 Vitamin D deficiency, unspecified; S43.431S Superior glenoid labrum lesion of right shoulder, sequela; M25.50 Pain in unspecified joint; M54.50 Low back pain, unspecified; Z98.84 Bariatric surgery status

== ENCOUNTER → 2024-12-26 10:06 | Outpatient (BNVA) | payer OTHER, SELFPAY | PROVIDERS: PCP Internal Medicine; Visit Provider Internal Medicine | DX: Z00.00 Encounter for general adult medical examination without abnormal findings (principal); R00.2 Palpitations; E11.9 Type 2 diabetes mellitus without complications; E55.9 Vitamin D deficiency, unspecified; M25.50 Pain in unspecified joint; M54.50 Low back pain, unspecified; S43.431S Superior glenoid labrum lesion of right shoulder, sequela; E66.01 Morbid (severe) obesity due to excess calories; X58.XXXS Exposure to other specified factors, sequela; Z98.84 Bariatric surgery status; Z68.41 Body mass index [BMI] 40.0-44.9, adult | CPT/HCPCS: 96127; 99396 ==

== ENCOUNTER 2025-01-03 11:09 | Outpatient (AMB) | payer OTHER, SELFPAY ==
--- NOTE | 2025-01-03 11:15 | A.OFFPC_ITS ---
Vital Signs 01/03/25 11:17 Height 5 ft 8 in Weight 281 lb 4 oz BMI 42.8 BP 130/70 Blood Pressure Location Lt brachial Position Sitting Pulse 78 Pulse Source Pulse Oximeter Temp 96.9 F Temp Source Temporal Artery Scan Pulse Oximetry (%) 98 Oxygen Delivery Method Room Air Intake Visit Reasons: Swollen R eye Intake Note: Patient is here to follow up on swollen right eye. 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: Not Required per policy Accompanied by: Self / Same As Patient Allergies No Known Allergies Allergy (Verified 01/03/25 11:16) Tobacco use date assessed: 01/03/25 Dental Screening Dental Screen Date: 12/26/24 [facility] Medical History Diabetes mellitus Morbid obesity with BMI of 40.0-44.9, adult Cholecystitis Obesity (BMI 30-39.9) Vitamin D deficiency Frequent loose stools Diarrhea due to malabsorption Surgical History History of laparoscopic cholecystectomy (03/19/22) History of gastric bypass (~04/05/20) Status post laparoscopic sleeve gastrectomy Status post gastric bypass for obesity Family History Mother Arthritis Father Parkinsons Maternal Grandfather Colon cancer Family/Other Colon cancer Social History (Updated 01/03/25 @ 11:19 by CHRIS Dotson) Household Members: Spouse and Children Housing: House Do you presently have visiting nurse or other home services: No Alcohol intake: never Patient Tobacco Use Status: Never used Tobacco e-Cigarette/Vaping Use: Never Used Second Hand Smoke Exposure: No service: No Current occupational status: unemployed Cognitive needs: No Hearing needs: No Vision needs: Yes Questionnaire Thrive Questionnaire Date Thrive assessed: 12/26/24 I am a: Patient What is your living situation today?: I have a steady place to live Within the past 12 months, did the food you bought not last and you didn't have the money to get more?: Often true Within the past 12 months, did you worry whether your food would run out before you got money to buy more?: Often true Do you have trouble paying for medicines?: Yes Do you have trouble getting transportation to medical appointments?: No Do you have trouble paying your heating and electricity bill?: Yes Do you have trouble taking care of your child, family member or friend?: No Do you have trouble with day-to-day activities such as bathing, preparing meals, shopping, managing finances, etc.?: No Are you currently unemployed and looking for a job?: Yes Are you interested in more education?: No Please select the resources that you would like help with: None Currently or been in a relationship where the following occur: No concerns reported THRIVE Score: 3 TODD-7 AMB Questionnaire TODD-7 Date TODD - 7 assessed: 12/26/24 Source: Developed by Drs. Yosef Johnson, Christiana Yepez, Salinas Morgan and colleagues, with an educational caren from [employer]. Physical exam (Primary Care) Vital Signs: Last Vital Signs Temp 96.9 F 01/03/25 11:17 Pulse 78 01/03/25 11:17 BP 130/70 01/03/25 11:17 Pulse Ox 98 01/03/25 11:17 Oxygen Delivery Method Room Air 01/03/25 11:17 BMI result Body Mass Index 42.8 Tobacco/Smoking Status: Tobacco use Status Tobacco use date assessed 01/03/25 01/03/25 11:20 Patient Tobacco Use Status Never used Tobacco 01/03/25 11:20 e-Cigarette/Vaping Use Never Used 01/03/25 11:20 Thrive Assessment: Date of Thrive Assessment Date Thrive assessed 12/26/24 01/03/25 11:20 Currently or been in a relationship where the following occur: No concerns reported Coding Level of Care Code Est Pt Level 3 (75859) Complex EM visit Add On G2211 Diagnoses Hordeolum external H00.019 Assessment & Plan Assessment & Plan (1) Hordeolum external: Code(s): H00.019 - Hordeolum externum unspecified eye, unspecified eyelid Plan: History of Present Illness - The patient is a 39-year-old male presenting with eye discomfort and a sty. - The patient reports that the eye discomfort began last week with a small bump on the upper eyelid, which was painful and resembled a sty. - The patient attempted self-care with warm compresses, which initially improved the symptoms, but the bump persisted. - Later, the patient experienced pain in the lower part of the eyelid. - The patient applied a Q-tip with hot water, which may have caused a burn, leading to increased pain and discharge. - The patient denies any known allergies. Social History Review of Systems - Eyes: Reports eye discomfort, bump on eyelid, pain, and discharge. - General: Denies allergies. Physical Exam General: Cooperative and healthy appearing Nutritional Appearance: Well nourished Orientation/consciousness: Patient oriented x3 Limitations: No limitations Head: Normal to inspection General: Appearance normal, both eyes and all related structures Neck: Normal visual inspection Chest: Normal palpation of entire chest wall Respiratory: N ormal respiratory effort Neurology: Patient oriented x3, reports headache. Results Plan - Prescribe erythromycin ophthalmic ointment to be applied to the affected area three times a day. - Instruct the patient to continue using warm compresses to aid in the resolution of the sty. - Advise the patient that the sty may enlarge before resolving and to monitor for any worsening symptoms. Discussion Notes I explained to the patient that the condition is a sty, which is an infection of the eyelash follicle. I discussed the use of erythromycin ointment and warm compresses as treatment options. I advised that the sty might enlarge before resolving and emphasized the importance of monitoring for any worsening symptoms. I confirmed that the patient has no known allergies and instructed on the application of the ointment. Follow-up care was discussed, and the patient was advised to return if symptoms do not improve. Patient Instructions - Apply erythromycin ointment to the affected eye three times a day. - Use warm compresses on the eye to help reduce swelling and discomfort. - Monitor the sty for any changes or worsening symptoms and seek medical attention if necessary. Medications: New erythromycin 0.5 inches ophthalmic (eye) TID 1 g 0RF
[2025-01-03 11:17] VITALS: BP 130/70; PULSE 78; TEMP 36.1; O2SAT 98; BMI 42.8
--- OUTSIDE RECORDS SUMMARY | 2025-01-03 14:07 | XMS_ITS | Clinical Summary ---
Author Organization [address] [place] [address] [place] [phone] Phone Care Team Providers Care Accounting Intern Name Role Phone Rajan Clark MD Primary Care Provider Allergies No known active allergies Medications ibuprofen (ADVIL,MOTRIN) 800 mg tablet TAKE 1 TABLET ORALLY EVERY 8 HOURS NEEDED FOR PAIN FOR 30 DAYS TAKE WITH FOOD 03/31/2023 Active tirzepatide, weight loss, (Zepbound) 15 mg/0.5 mL injectionIndicat ions:Class 3 severe obesity due to excess calories with body mass index (BMI) of 40.0 to 44.9 in adult, unspecified whether serious comorbidity present (CMS/HCC V24, CMS/HCC V28) Inject 0.5 mL (15 mg total) under the skin every 7 (seven) days. 2 mL 5 12/04/2024 6 Active Active Problems Problem Noted Date Diagnosed Date Intestinal postoperative nonabsorption Esophageal dysmotility 03/22/2020 Hiatal hernia 03/22/2020 Overview (01/14/2024): Small sliding w/ esophageal dysmotility Hyperlipidemia 03/22/2020 Obstructive sleep apnea 03/22/2020 Type 2 diabetes mellitus without complication Overview (12/06/2024): 12/06/24 Regulatory IMO Update Encounters Date Type Department Care Team Description 01/02/2025 Telephone Bariatric Surgery - [place] [address] [facility] [address] [place] [address] Lady Chong MD 12/04/2024 11:15 AM EDT Office Visit Bariatric Surgery - [address] [place] [phone] Lady Chong MD Class 3 severe obesity due to excess calories with body mass index (BMI) of 40.0 to 44.9 in adult, unspecified whether serious comorbidity present ([facility] V24, [facility] V28) (Primary Dx); Type 2 diabetes mellitus without complication, without long-term current use of insulin ([facility] V24, [facility] V28) 11/07/2024 Telephone Bariatric Surgery - [place] [address] [facility] [address] [place] [phone] Lady Chong MD from Last 3 Months Surgical History Surgery Date Site/Laterality Comments OTHER SURGICAL HISTORY 2015 PROCEDURE: ---- OTHER ----; COMMENT: Gastric Sleeve Medical History Medical History Date Comments Hyperlipidemia DX:Hyperlipidemi a Hypertension DX:Hypertension Obstructive sleep apnea DX:Obstr uctive sleep apnea Positive hepatitis C antibody test DX:Positive hepatitis C antibody test Esophageal dysmotility 03/22/2020 DX:Esopha geal dysmotility Type 2 diabetes mellitus wit hout complication 03/22/2020 DX:Type 2 diabetes mellitus without complication (HCC) Class 3 severe obesity due t o excess calories with serious comorbidity and body mass index (BMI) of 40.0 to 44.9 in adult (CMS/HCC V24, CMS/[facility] V28) 08/24/2019 DX:Class 3 severe obesity due to excess calories with serious comorbidity and body mass index (BMI) of 40.0 to 44.9 in adult (HCC) Hiatal hernia 03/22/2020 DX:Hiatal hernia ; COMMENT: [...] Sign Reading Time Taken Comments Blood Pressure 119/71 12/04/2024 11:24 AM EDT Pulse 60 12/04/2024 11:24 AM EDT Temperature 36.6 C (97.8 F) 12/04/2024 11:24 AM EDT Respiratory Rate - - Oxygen Saturation - - Inhaled Oxygen Concentration - - Weight 126 kg (277 lb) 12/04/2024 11:24 AM EDT Height 175.3 cm (5' 9 ) 12/04/2024 11:24 AM EDT Body Mass Index 40.91 12/04/2024 11:24 AM EDT Plan of Treatment Upcoming Encounters Date Type Department Care Team (Late st Contact Info) Description 06/05/2025 10:15 AM EDT Office Visit Bariatric Surgery - [address] [place] [address] Lady Chong MD [address] [place] [phone] Health Maintenance Due Date Last Done Comments Diabetes: Annual Foot Exam 1993 Diabetes: Annual Retina Eye Exam 1993 Hepatitis B Vaccines (1 of 3 - 19+ 3-dose series) 2002 Pneumococcal Vaccine: Pediatrics (0 to 5 Years) and At-Risk Patients (6 to 49 Years) (1 of 2 - PCV) 2002 HPV Vaccines (1 - 3-dose SCDM series) 2010 Diabetes: Annual GFR (Glomerular Filtration Rate) 12/06/2020 12/07/2019 Diabetes: Annual Urine Albumin-Creatinine Ratio (uACR) 10/05/2023 HIV Screening 10/05/2023 Hepatitis C Screening 10/05/2023 Social Influencers of Health Screening 10/05/2023 Depression Screening 03/08/2024 COVID-19 Vaccine ( season) 2024 02/11/2021, 08/07/2020, 07/09/2020 Influenza Vaccine (#1) 2024 , 04/06/2020, 12/20/2017, Additional history exists Cholesterol Screening (Lipid Panel) 12/06/2024 12/07/2019 Diabetes: Blood Sugar Control Test (HGBA1C) 06/03/2025 12/04/2024, 05/20/2023 DTaP,Tdap,and Td Vaccines (2 - Td or Tdap) 12/03/2025 12/04/2015 RSV Immunization Adult Patients (1 - 1-dose 75+ series) 2058 HIB Vaccines Aged Out No longer eligi [...] Date/Time Associated Diagnosis Comments HEMOGLOBIN A1C Routine 12/04/2024 11:43 AM EDT Class 3 severe obesity due to excess calories with body mass index (BMI) of 40.0 to 44.9 in adult, unspecified whether serious comorbidity present ([facility] V24, [facility] V28) Type 2 diabetes mellitus without complication, without long-term current use of insulin ([facility] V24, [facility] V28) ANNUAL BMP BLOOD TEST Routine 12/07/2019 LIPID PANEL Routine 12/07/2019 from Last 3 Months or Most Recently Relevant to Health Maintenance Results * Hemoglobin A1c (12/04/2024 11:43 AM EDT) Hemoglobin A1C 6.1 <6.5 % LAB CHEMISTRY METHOD 12/05/2024 9:09 AM EDT [facility] Mean Bld Glu Estim. 128 mg/dL LAB CHEMISTRY METHOD 12/05/2024 9:09 AM EDT [facility] Blood Venous blood specimen / Unknown Venipuncture / Unknown 12/04/2024 11:43 AM EDT 12/04/2024 11:43 AM EDT Lady Chong MD LAB BLOOD ORDERABLES Final R esult [facility] ([facility]) [facility] [address] [place] [address], [place] [phone] * Annual BMP Blood Test (12/07/2019) Pathologist [facility] Annual BMP Blood Test Abstracted Historical Provider HEALTH MAINTENANCE Final Result * (ABNORMAL) Lipid panel (12/07/2019) LDL/HDL Ratio 5(A) 0 - 4 Triglycerides 281(A) 0 - 150 mg/dL Cholesterol 158 0 - 200 mg/dL HDL 32(A) >=40 mg/dL LDL Cholesterol 70 0 - 100 mg/dL Blood Venous blood specimen / Unknown Historical Provider LAB BLOOD ORDERABLES Radha l Result from Last 3 Months or Most Recently Relevant to Health Maintenance Insurance [facility] MEDICAID - [place] Care Teams Accounting Intern Relationship Specialty Start Date End Date Rajan Clark MD [address] [place] [address] [address] [place], [place] PCP - General Internal Medicine 08/04/19
--- OUTSIDE RECORDS SUMMARY | 2025-01-03 14:07 | XMS_ITS | Encounter Summary ---
Author Organization [facility] Address [address] [place] [address] Care Team Providers Care Network Internship Name Role Phone Rajan Clark MD Primary Care Provider [phone] Reason for Visit * Reason Onset Date Comments Med Refill 01/02/2025 Zepbound 15 Mg Encounter Details Date Type Department Care Team (Late Contact Info) Description 01/02/2025 Telephone Bariatric Surgery [address] [place] [address] Lady Chong MD [address] [place] [phone] Social History Tobacco Use Types Packs/Day Years Used Date Smoking Tobacco: Never Smokeless Tobacco: Never Alcohol Use Standard Drinks/Week Comments Yes 0 (1 standard drink = 0.6 oz pur e alcohol) Sex and Gender Information Value Date Recorded Sex Assigned at Not on file Legal Sex Male 4:35 AM EST Gender Identity Not on file Sexual Orientation Not on file documented as of this encounter Progress Notes * Andree Redding - 01/02/2025 10:51 AM EDT Patient did well on Zepbound 15 mgs and would like a refill. If appropriate, please send script for Zepbound 15 mgs to their pharmacy. The patient does have a follow up in 06/05/2025 documented in this encounter Plan of Treatment Upcoming Encounters Date Type Department Care Team (Late Contact Info) Description 06/05/2025 10:15 AM EDT Office Visit Bariatric Surgery - [address] [place] [phone] Lady Chong MD [address] [place] [phone] documented as of this encounter Visit Diagnoses Not on filedocumented in this encounter Care Teams Network Internship Relationship Specialty Start Date End Date Rajan Clark MD [address] [place] [address] [address] [place], [place] PCP - General Internal Medicine 08/04/19 documented as of this encounter
== END 2025-01-03 14:10 | disposition home or self-care (01) ==
LOC: HO.HMCH 11:10
PROVIDERS: PCP Internal Medicine; Visit Provider Internal Medicine
DX: H00.019 Hordeolum externum unspecified eye, unspecified eyelid (principal)

== ENCOUNTER → 2025-01-03 11:09 | Outpatient (BNVA) | payer OTHER, SELFPAY | PROVIDERS: PCP Internal Medicine; Visit Provider Internal Medicine | DX: H00.011 Hordeolum externum right upper eyelid (principal) | CPT/HCPCS: 99212 ==

== ENCOUNTER 2025-03-05 14:38 | Outpatient (AMB) | payer OTHER, SELFPAY ==
[2025-03-05 14:42] VITALS: BP 126/82; PULSE 76; O2SAT 96; BMI 44.1
--- NOTE | 2025-03-05 14:42 | A.OFFPC_ITS ---
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 Required: No Accompanied by: Self / Same As Patient Allergies No Known Allergies Allergy (Verified 03/05/25 14:54) Medication List - Last Reconciled 03/05/25 by Raajn Clark MD blood sugar diagnostic As directed blood sugar diagnostic (FreeStyle Lite Strips) As directed once a day blood-glucose meter (FreeStyle Lite Meter kit) As directed cholecalciferol (vitamin D3) 50 mcg PO DAILY 90 days ibuprofen 800 mg PO Q8H PRN 30 days lancets (FreeStyle Lancets) As directed once a day tirzepatide (weight loss) (Zepbound) 15 mg subcut QWEEK Ventolin HFA 90 mcg/actuation (albuterol sulfate) 2 puffs inhalation Q6H PRN 30 days NS Tobacco use date assessed: 03/05/25 Dental Screening Dental Screen Date: 03/05/25 Did you have a dental visit in the last 12 months?: No Did you have a dental problem in the last 6 months where you did not have access to dental care?: No Was dental information given to patient?: No HPI Sleep study request HPI Details - The patient is a 39 year old male pres enting for evaluation for a 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 - Regarding the sleep apnea evaluation, the patient was flagged during a recent DOT physical due to his neck size being 42 cm, which exceeded the 40 cm threshold. - He was issued a temporary 3-month DOT card and was required to undergo a sleep study. 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 - His symptoms of loud snoring and dayti me fatigue resolved after weight loss, and he currently denies these symptoms. - He is no longer taking medication for blood pressure. - Regarding his right eye, he developed an infected stye over a month ago and has a persistent, non-painful bump on his upper eyelid. - He reports associated symptoms of the eye feeling dirty, intermittent blurred vision, and increased tearing. [facility], [facility] Medical History (Updated 03/12/25 @ 00:35 by Rajan Clark MD) Obstructive sleep apnea Diabetes mellitus Morbid obesity with BMI of 40.0-44.9, adult Cholecystitis Obesity (BMI 30-39.9) Vitamin D deficiency Frequent loose stools Diarrhea due to malabsorption Surgical History History of laparoscopic cholecystectomy (03/19/22) History of gastric bypass (~04/05/20) Status post laparoscopic sleeve gastrectomy Status post gastric bypass for obesity Family History Mother Arthritis Father Parkinsons Maternal Grandfather Colon cancer Family/Other Colon cancer Social History Household Members: Spouse and Children Housing: House Do you presently have visiting nurse or other home services: No Alcohol intake: never Patient Tobacco Use Status: Never used Tobacco e-Cigarette/Vaping Use: Never Used Second Hand Smoke Exposure: No service: No Current occupational status: unemployed Cognitive needs: No Hearing needs: No Vision needs: Yes Questionnaire PHQ-9 Over the last 2 weeks, how often have you been bothered by any of the following problems? 1. Little interest or pleasure in doing things: several days 2. Feeling down, depressed, or hopeless: several days 3. Trouble falling or staying asleep, or sleeping too much: several days 4. Feeling tired or having little energy: several days 5. Poor appetite or overeating: not at all 6. Feeling bad about yourself - or that you are a failure or have let yourself or your family down: not at all 7. Trouble concentrating on things, such as reading the newspaper or watching television: not at all 8. Moving or speaking so slowly that other people could have noticed. Or the opposite - being so fidgety or restless that you have been moving around a lot more than usual: not at all 9. Thoughts that you would be better off or of hurting yourself in some way: not at all Total score: 4 Depression Screening Interpretation: Positive Depression Screening Follow-up: Follow-up Visit Requested Depression Screening Done: Yes [id number] - PHQ-9 Billing: Yes Source: Developed by Drs. Yosef Johnson, Christiana Yepez, Salinas Morgan and colleagues, with an educational caren from [employer]. Thrive Questionnaire Date Thrive assessed: 03/05/25 I am a: Patient What is your living situation today?: I have a steady place to live Within the past 12 months, did the food you bought not last and you didn't have the money to get more?: Often true Within the past 12 months, did you worry whether your food would run out before you got money to buy more?: Often true Do you have trouble paying for medicines?: Yes Do you have trouble getting transportation to medical appointments?: No Do you have trouble paying your heating and electricity bill?: Yes Do you have trouble taking care of your child, family member or friend?: No Do you have trouble with day-to-day activities such as bathing, preparing meals, shopping, managing finances, etc.?: No Are you currently unemployed and looking for a job?: Yes Are you interested in more education?: No Please select the resources that you would like help with: None Currently or been in a relationship where the following occur: No concerns reported THRIVE Score: 3 AUDIT C Alcohol Use Questionnaire (AUDIT-C) 1. How often do you have a drink containing alcohol?: Monthly or less 2. How many drinks containing alcohol do you have on a typical day when you are drinking?: 3 or 4 3. How often do you have six or more drinks on one occasion?: Less than monthly Total Score: 3 Score Reviewed/Action Taken: Yes TODD-7 AMB Questionnaire TODD-7 Date TODD - 7 assessed: 03/05/25 Feeling nervous, anxious, or on edge: 0 = Not at all Not being able to stop or control worryin = Not at all Worrying too much about different things: 0 = Not at all Trouble relaxin = Not at all Being so restless that it is hard to sit still: 0 = Not at all Becoming easily annoyed or irritable: 0 = Not at all Feeling afraid as if something awful might happen: 0 = Not at all Total TODD-7 score (0-4 normal; 5-9 mild; 10-14 moderate; 15-21 severe): 0 Source: Developed by Drs. Yosef Johnson, Christiana Yepez, Salinas Morgan and colleagues, with an educational caren from [employer]. Review of Systems Const Denies chills, Reports fatigue, Denies fever(s) and Denies headache(s) Eyes Details: (+) small nodule on the right upper eyelid ENT Denies dysphagia, Denies dizziness, Denies otalgia, Denies headache(s), Reports neck pain (chronic), Denies odynophagia and Denies sore throat Card Denies chest pain, Denies rapid heart rate, Denies irregular heart rhythm, Denies palpitations and Denies dyspnea Resp Denies chest congestion, Denies cough and Denies dyspnea GI Denies abdominal pain, Denies constipation, Denies dysphagia, Denies heartburn, Denies diarrhea, Denies nausea, Denies odynophagia and Denies vomiting Denies difficulty urinating, Denies dysuria and Denies urinary frequency Musc Reports back pain (over the lower back - chronic/mild), Reports arthralgias (in the right shoulder and over both knees) and Reports neck pain (chronic) Skin/Breast Denies rash Neuro Denies dizziness, Denies headache(s) and Denies paresthesias Psych Denies depression Endo Reports fatigue and Denies palpitations Physical exam (Primary Care) Vital Signs: Last Vital Signs Pulse 76 03/05/25 14:42 BP 126/82 03/05/25 14:42 Pulse Ox 96 03/05/25 14:42 Oxygen Delivery Method Room Air 03/05/25 14:42 BMI result Body Mass Index 44.1 Tobacco/Smoking Status: Tobacco use Status Tobacco use date assessed 03/05/25 03/05/25 14:46 Patient Tobacco Use Status Never used Tobacco 03/05/25 14:46 e-Cigarette/Vaping Use Never Used 03/05/25 14:46 PHQ-9: PHQ-9 Score PHQ-9: Total score 4 03/05/25 15:04 Depression Screening Interpretation: Positive Depression Screening Follow-up: Follow-up Visit Requested Thrive Assessment: Date of Thrive Assessment Date Thrive assessed 03/05/25 03/05/25 14:46 Currently or been in a relationship where the following occur: No concerns re ported Const General: no acute distress and alert HENMT Ears: TM's normal bilaterally and EAC's normal Throat: Yes posterior oropharynx normal and Yes tonsils normal (no TP congestion) Eyes Other: (+) small, palpable, non-tender nodular lesion on the right upper eyelid Conjunctivae: conjunctivae normal Neck Neck: No lymphadenopathy and Yes tender Thyroid: Thyroid normal Resp Auscultation: clear to auscultation bilaterally, no rales and no wheezes Cardio Rate: regular rate Rhythm: regular rhythm Heart sounds: no murmurs GI Palpation (GI): Soft to palpation and nontender Auscultation: normal bowel sounds General: Yes no CVA tenderness Back/Spine/Pelvis Back: no CVA tenderness Cervical Spine: Cervical spine tenderness Thoracic/Lumbar Spine: lumbar spinal tenderness Skin Rashes: no rashes Extrem General: Yes no clubbing, cyanosis or edema Right upper extremity: shoulder/upper arm Details: tenderness Location: of the A-C joint Right lower extremity: knee Details: tenderness; no swelling Left lower extremity: knee Details: tenderness; no swelling Coding Level of Care Code Est Pt Level 4 (10193) Diagnoses Obstructive sleep apnea G47.33 Cyst of right upper eyelid H02.821 Laterality: right Eyelid: upper Intermittent palpitations R00.2 Type 2 diabetes mellitus without complication, without long-term current use of insulin E11.9 Diabetes mellitus type: type 2 Diabetes mellitus skilled nursing insulin use: without skilled nursing use Diabetes mellitus complication status: without complication Vitamin D deficiency E55.9 Arthralgia, unspecified joint M25.50 Joint pain location: unspecified Midline low back pain without sciatica, unspecified chronicity M54.50 Chronicity: unspecified Back pain laterality: midline Sciatica presence: without sciatica History of gastric bypass Z98.84 Morbid obesity with BMI of 40.0-44.9, adult E66.01; Z68.41 Additional Codes PHQ-9 - 04653 - PHQ-9 Billing: Yes ([id number]) Assessment & Plan Assessment & Plan (1) Obstructive sleep apnea: Code(s): G47.33 - Obstructive sleep apnea (adult) (pediatric) Category: Medical Plan: Will send patient for a home sleep study MARINA for further evaluation - see HPI for details (2) Cyst of eyelid: Code(s): H02.829 - Cysts of unspecified eye, unspecified eyelid Category: Medical Qualifiers: Laterality: right Eyelid: upper Qualified Code(s): H02.821 - Cysts of right upper eyelid Plan: Have advised patient that this is most likely a sequelae/residual of his recent sty Have instructed patient to continue applying warm compress over his right upper eyelid a few times a day as needed for symptomatic relief and that this will eventually resolve on its own (3) Intermittent palpitations: Code(s): R00.2 - Palpitations Category: Medical Plan: EKG done in late 2022 came out normal Echocardiogram done back in December 2023 also came out normal - normal left ventricular size, thickness, systolic function, and wall motion. The visually estimated ejection fraction is between 55-60%. Diastolic function is normal for age. Normal right ventricular cavity size and systolic function. The left atrium is mildly dilated Patient states that his symptoms have not occurred in a while now (4) Diabetes mellitus: Code(s): E11.9 - Type 2 diabetes mellitus without complications Category: Medical Qualifiers: Diabetes mellitus type: type 2 Diabetes mellitus manager terminal insulin use: without manager terminal use Diabetes mellitus complication status: without complication Qualified Code(s): E11.9 - Type 2 diabetes mellitus without complications Plan: His HgbA1c was at 7.0% when last checked a year ago in November 2023 We sent patient for some labs, including his FBS and HgbA1c, MARINA for follow up but he was not able to get these done Have advised him to try to get his labs done before his upcoming appointment in April 2025 Reinforced diabetic diet Continue Tirzepatide 15 mg SQ once a week (5) Vitamin D deficiency: Code(s): E55.9 - Vitamin D deficiency, unspecified Category: Medical Plan: Continue Vitamin D3 2000 units QD (6) Arthralgia: Code(s): M25.50 - Pain in unspecified joint Category: Medical Qualifiers: Joint pain location: unspecified Qualified Code(s): M25.50 - Pain in unspecified joint Plan: Involving multiple joints, including the right knee, shoulders, elbows, hands and lower back, which he states have been going on for a while now He was sent for labs to evaluate him for possible inflammatory joint disease or other related CTDs and his tests have all come back negative Have advised him that his joint pains are most likely due to osteoarthritis and tendinitis/bursitis He was advised that these can continue to be managed conservatively with NSAIDs like ibuprofen as needed and also with physical therapy when appropriate Can consider referring him to rheumatology for further evaluation/recommendations later on if his symptoms of diffuse/multiple joint pains continue to persist or get worse (7) Low back pain: Code(s): M54.50 - Low back pain, unspecified Category: Medical Qualifiers: Chronicity: unspecified Back pain laterality: midline Sciatica presence: without sciatica Qualified Code(s): M54.50 - Low back pain, unspecified Plan: Reinforced activity and weight-lifting restrictions (8) History of gastric bypass: Onset Date: ~04/05/20 Comment: conversion of gastric sleeve to [place] single anastomosis duodenal switch - Dr. Chong ([facility]) Code(s): Z98.84 - Bariatric surgery status Category: Surgical Plan: Continue Pantoprazole 40 mg QD; he was on Ursodiol 300 mg BID in the past but he stopped taking this sometime last year Continue Multivitamins and Vitamin B complex daily as well He is advised that this, coupled with his cholecystectomy, are likely the predominant reason(s) for his loose stools and intermittent diarrhea Have advised him to try to find some type of diet or regimen (will likely have to do this through trial and error on his own) that will help regulate his bowel movements and GI symptoms better and that it is likely that the best he can do is to slow down his bowel movements and that there is a good chance that he will never be able to get back to a completely normal bowel regimen (9) Morbid obesity with BMI of 40.0-44.9, adult: Comment: S/P gastric bypass Code(s): E66.01 - Morbid (severe) obesity due to excess calories; Z68.41 - Body mass index [BMI] 40.0-44.9, adult Category: Medical Plan: Reinforced diet/exercise as tolerated/lose weight Continue Tirzepatide 15 mg Q week Follow up with weight management as scheduled Plan Follow up as scheduled in April 2025 Orders: Orders RT home sleep study 03/05/25 G47.33 - Obstructive sleep apnea (adult) (pediatric)
--- OUTSIDE RECORDS SUMMARY | 2025-03-05 17:00 | XMS_ITS | Clinical Summary ---
Author Organization [address] [facility] Address [address] [place] [address] Phone Care Team Providers Care Document Review Attorney Name Role Phone Rajan Clark MD Primary [...] in adult, unspecified whether serious comorbidity present ([facility] V24, [facility] V28) Inject 0.5 mL (15 mg total) under the skin every 7 (seven) days. 2 mL 5 5 08/28/19 26 Active tirzepatide, weight loss, (Zepbound) 15 mg/0.5 mL injectionIndicat ions:Class 3 severe obesity due to excess calories with body mass index (BMI) of 40.0 to 44.9 in adult, unspecified whether serious comorbidity present ([facility] V24, [facility] V28) Inject 0.5 mL (15 mg total) under the skin every 7 (seven) days. 2 mL 5 5 02/05/20 25 Discontinu ed(Reorder ) tirzepatide, weight loss, (Zepbound) 15 mg/0.5 mL injectionIndicat ions:Class 3 severe obesity due to excess calories with body mass index (BMI) of 40.0 to 44.9 in adult, unspecified whether serious comorbidity present ([facility] V24, [facility] V28) Inject 0.5 mL (15 mg total) under the skin every 7 (seven) days. 2 mL 5 5 02/29/20 25 Discontinu ed(Reorder ) Active Problems Problem Noted Date Diagnosed Date Intestinal postoperative nonabsorption Esophageal dysmotility 03/22/2020 Hiatal hernia 03/22/2020 Overview (01/14/2024): Small sliding w/ esophageal dysmotility Hyperlipidemia 03/22/2020 Obstructive sleep apnea 03/22/2020 Type 2 diabetes mellitus without complication Overview (12/06/2024): 12/06/24 Regulatory IMO Update Encounters Date Type Department Care Team Description 02/27/2025 Telephone Bariatric Surgery [address] [phone] Lady Chong MD 01/31/2025 Telephone Bariatric Surgery - [address] [phone] Lady Chong MD 01/02/2025 Telephone Bariatric Surgery [address] [phone] Lady Chong MD 12/04/2024 11:15 AM EDT Office Visit Bariatric Surgery [address] [phone] Lady Chong MD Class 3 severe obesity due to excess calories with body mass index (BMI) of 40.0 to 44.9 in adult, unspecified whether serious comorbidity present (CMS/HCC V24, [facility] V28) (Primary Dx); Type 2 diabetes mellitus without complication, without long-term current use of insulin (CMS/HCC V24, [facility] V28) from Last 3 Months Surgical History Surgery [...] 40.0 to 44.9 in adult (CMS/HCC V24, [facility]/HCC V28) 08/24/2019 DX:Class 3 severe obesity due [...] on file Sexual Orientation Not on file Last Filed Vital Signs Vital Sign Reading [...] AM EDT Office Visit Bariatric Surgery - [address] [place] [address] Lady Chong MD [facility] [place] [phone] Health Maintenance Due Date Last Done Comments [...] in adult, unspecified whether serious comorbidity present ([facility]24, [facility] V28) Type 2 diabetes mellitus without complication, without long-term current use of insulin ([facility]24, [facility] V28) ANNUAL BMP BLOOD TEST Routine 12/07/2019 LIPID PANEL Routine 12/07/2019 from Last 3 Months or Most Recently Relevant to Health Maintenance Results * Hemoglobin A1c (12/04/2024 11:43 AM EDT) [facility] Hemoglobin A1C 6.1 <6.5 % LAB CHEMISTRY METHOD 12/05/2024 9:09 AM EDT [facility] Mean Bld Glu Estim. 128 mg/dL LAB CHEMISTRY METHOD 12/05/2024 9:09 AM EDT [facility] Blood Venous blood specimen / Unknown Venipuncture / Unknown 12/04/2024 11:43 AM EDT 12/04/2024 11:43 AM EDT Lady Chong MD LAB BLOOD ORDERABLES Final R esult [facility] [address] [place] [address], [place] [phone] * Annual BMP Blood Test (12/07/2019) [facility] Annual BMP Blood Test Abstracted Historical Provider [...] Most Recently Relevant to Health Maintenance Insurance [facility] [employer] MEDICAID - [place] Care Teams Document Review Attorney Relationship Specialty Start Date End Date Rajan Clark MD [address] [place] [address] [address] [place] PCP - General Internal Medicine 08/04/19
--- OUTSIDE RECORDS SUMMARY | 2025-03-05 17:00 | XMS_ITS | Encounter Summary ---
Author Organization [facility] Address [address] [place] [address] Care Team Providers Care Used Car Manager Name Role Phone Rajan Clark MD Primary Care Provider Reason for Visit * Reason Onset Date Comments Med Refill 02/27/2025 Zepbound Encounter Details Date Type Department Care Team (Late Contact Info) Description 02/27/2025 Telephone Bariatric Surgery [address] [phone] Lady Chong MD [address] [place] [phone] Social History Tobacco Use Types Packs/Day Years [...] as of this encounter Progress Notes * Maia Yepez - 02/27/2025 9:50 AM EST Patient did well on Zepbound 15 mgs and would like a refill If appropriate, please send script for Zepbound 15 mgs to their pharmacy. The patient does have a follow up in 06/05/2025 documented in this encounter Plan of Treatment Upcoming Encounters Date Type Department Care Team ([facility] Contact Info) Description 06/05/2025 10:15 AM EDT Office Visit Bariatric Surgery [address] [phone] Lady Chong MD [address] [place] [phone] documented as of this encounter Visit Diagnoses Not on filedocumented in this encounter Care Teams Used Car Manager Relationship Specialty Start Date End Date Rajan Clark MD [address] [place] [address] [address] [place], [place] PCP - General Internal Medicine 08/04/19 documented as of this encounter
== END 2025-03-05 15:32 | disposition home or self-care (01) ==
LOC: HO.HMCH 14:39
PROVIDERS: PCP Internal Medicine; Visit Provider Internal Medicine
DX: E11.9 Type 2 diabetes mellitus without complications (principal); E66.01 Morbid (severe) obesity due to excess calories; Z68.41 Body mass index [BMI] 40.0-44.9, adult; G47.33 Obstructive sleep apnea (adult) (pediatric); H02.821 Cysts of right upper eyelid; R00.2 Palpitations; E55.9 Vitamin D deficiency, unspecified; M25.50 Pain in unspecified joint; M54.50 Low back pain, unspecified; Z98.84 Bariatric surgery status

== ENCOUNTER → 2025-03-05 14:38 | Outpatient (BNVA) | payer OTHER, SELFPAY | PROVIDERS: PCP Internal Medicine; Visit Provider Internal Medicine | DX: G47.33 Obstructive sleep apnea (adult) (pediatric) (principal); H02.821 Cysts of right upper eyelid; R00.2 Palpitations; E11.9 Type 2 diabetes mellitus without complications; E55.9 Vitamin D deficiency, unspecified; M25.50 Pain in unspecified joint; M54.50 Low back pain, unspecified; E66.01 Morbid (severe) obesity due to excess calories; Z98.84 Bariatric surgery status; Z68.41 Body mass index [BMI] 40.0-44.9, adult | CPT/HCPCS: 96127; 99212 ==